=== PATIENT | male | born 1930 | race Caucasian/White ===

== ENCOUNTER 2018-03-26 10:01 | Inpatient (IN) | payer MEDICARE, OTHER ==
--- NOTE | 2018-03-26 11:15 | ER Document Report ---
ED GI Bleed / Rectal Pain <MICHAELA TRUONG - Last Filed: 03/26/18 13:04> - General Mode of Arrival: Ambulatory Information source: Patient TRAVEL OUTSIDE OF THE [place] IN LAST 30 DAYS: No <JENNIFER BURRELL - Last Filed: 03/26/18 15:55> - General Chief Complaint: GI Bleeding Stated Complaint: POSSIBLE RECTAL BLEEDING Time Seen by Provider: 03/26/18 11:03 Notes: 87-year-old male who presents to the emergency department today with complaints of having a bowel movement that was "completely blood." Patient states he had the urge of what he thought was going to be diarrhea but instead turned out to be just large amounts of blood. Patient has had transfusions in the past secondary to anemia of unknown source. Patient and family are both fairly poor historians so history is somewhat limited. (JENNIFER BURRELL) - Related Data Allergies/Adverse Reactions: Penicillins Adverse Reaction (Verified 03/26/18 12:16) Past Medical History - General Information source: Patient - Social History Smoking Status: Former Smoker Cigarette use (# per day): No Family History: Reviewed & Not Pertinent - Past Medical History Cardiac Medical History: Reports: Hx Hypercholesterolemia, Hx Hypertension, Other - hx of anemia from unknown source Pulmonary Medical History: Reports: Hx COPD <JENNIFER BURRELL - Last Filed: 03/26/18 15:55> Review of Systems - Review of Systems Constitutional: No symptoms reported EENT: No symptoms reported Cardiovascular: No symptoms reported Respiratory: No symptoms reported Gastrointestinal: See HPI, Black stools, Rectal bleeding Genitourinary: No symptoms reported Male Genitourinary: No symptoms reported Musculoskeletal: No symptoms reported Skin: No symptoms reported Hematologic/Lymphatic: No symptoms reported Neurological/Psychological: No symptoms reported -: Yes All other systems reviewed and negative <JENNIFER BURRELL - Last Filed: 03/26/18 15:55> Physical Exam <MICHAELA TRUONG - Last Filed: 03/26/18 13:04> <JENNIFER BURRELL - Last Filed: 03/26/18 15:55> - Vital signs Vitals: Temp Pulse Resp BP Pulse Ox 98.7 F 90 16 138/72 H 98 03/26/18 10:13 03/26/18 10:13 03/26/18 10:13 03/26/18 10:13 03/26/18 10:13 - Notes Notes: Physical Exam: General: Alert, appears well. HEENT: Normocephalic. Atraumatic. PERRL. Extraocular movements intact. Oropharynx clear. Neck: Supple. Non-tender. Respiratory: No respiratory distress. Coarse breath sounds bilaterally. Cardiovascular: Tachycardic, regular rhythm. Abdominal: Normal Inspection. Non-tender. No distension. Normal Bowel Sounds. Rectal: Black stool on diaper. Digital rectal exam performed, moderate amount of melanotic stool. Back: Non-tender. No deformity or step off. Extremities: Moves all four extremities. Upper extremities: Normal inspection. Normal ROM. Lower extremities: Normal inspection. No edema. Normal ROM. Neurological: Normal cognition. AAOx4. Normal speech. Psychological: Normal affect. Normal Mood. Skin: Warm. Dry. Normal color. (JENNIFER BURRELL) Course - Laboratory Result Diagrams: 03/26/18 09:50 03/26/18 09:50 - Diagnostic Test Radiology reviewed: Image reviewed - Chest x-ray shows COPD without infiltrate. - EKG Interpretation by Pa EKG shows normal: Sinus rhythm, [place], Intervals, QRS Complexes, ST-T Waves Rate: Normal - 75 Rhythm: NSR When compared to previous EKG there are: Previous EKG unavailable - Consults Teresita Castle RN Time consulted: 13:05 Consulted provider: will come to ER <MICHAELA TRUONG - Last Filed: 03/26/18 13:04> - Laboratory Result Diagrams: 03/26/18 09:50 03/26/18 09:50 <JENNIFER BURRELL - Last Filed: 03/26/18 15:55> - Vital Signs Vital signs: Temp Pulse Resp BP Pulse Ox 98.7 F 90 21 H 125/61 100 03/26/18 10:13 03/26/18 10:13 03/26/18 15:00 03/26/18 14:46 03/26/18 15:00 - Laboratory Laboratory results interpreted by me: 03/26/18 03/26/18 09:50 09:50 RBC 3.70 L Hgb 10.1 L Hct 30.4 L RDW 14.6 H Seg Neutrophils % 82.4 H Lymphocytes % 8.3 L Potassium 5.1 H Carbon Dioxide 34 H BUN 21 H Glucose 125 H Critical Care Note - Critical Care Note Total time excluding time spent on procedures (mins): 30 <MICHAELA TRUONG - Last Filed: 03/26/18 13:04> Discharge - Discharge Admitting Provider: Hospitalist Unit Admitted: IMCU <MICHAELA TRUONG - Last Filed: 03/26/18 13:04> <JENNIFER BURRELL - Last Filed: 03/26/18 15:55> - Discharge Clinical Impression: Lower GI bleed COPD (chronic obstructive pulmonary disease) Qualifiers: COPD type: unspecified COPD Qualified Code(s): J44.9 - Chronic obstructive pulmonary disease, unspecified Anemia Qualifiers: Anemia type: unspecified type Qualified Code(s): D64.9 - Anemia, unspecified Condition: Good Disposition: ADMITTED INPATIENT Scribe Attestation: 03/26/18 12:47 I personally performed the services described in the documentation, reviewed and edited the documentation which was dictated to the scribe in my presence, and it accurately records my words and actions. (MICHAELA TRUONG) Scribe Documentation - Scribe Written by Leydaibe:: Delmar Sauceda, 03/26/2018 1554 acting as scribe for :: Mumtaz <JENNIFER BURRELL - Last Filed: 03/26/18 15:55>
[2018-03-26 11:28] LABS: ABSOLUTE EOSINOPHILS # (AUTO) 0.1 10^3/uL (0.0-0.6); ABSOLUTE LYMPHOCYTES (AUTO) 0.6 10^3/uL (0.5-4.7); ABSOLUTE MONOCYTES (AUTO) 0.5 10^3/uL (0.1-1.4); ABSOLUTE NEUT (AUTO) 6.1 10^3/uL (1.7-8.2); BASOPHILS % (AUTO) 0.4 % (0-2); EOSINOPHILS % (AUTO) 1.8 % (0-6); HEMATOCRIT 30.4 % (37.9-51.0); HEMOGLOBIN 10.1 g/dL (13.5-17.0); LYMPHOCYTES % (AUTO) 8.3 % (13-45); MEAN CORPUSCULAR HEMOGLOBIN 27.3 pg (27.0-33.4); MEAN CORPUSCULAR HGB CONC 33.3 g/dL (32.0-36.0); MEAN CORPUSCULAR VOLUME 82 fl (80-97); MONOCYTES % (AUTO) 7.1 % (3-13); PLATELET COUNT 243 10^3/uL (150-450); RED CELL DISTRIBUTION WIDTH 14.6 % (11.5-14.0); SEGMENTED NEUTROPHILS % (AUTO) 82.4 % (42-78); TOTAL CELLS COUNTED % (AUTO) 100 %; WHITE BLOOD COUNT 7.4 10^3/uL (4.0-10.5)
[2018-03-26 11:46] LABS: ALANINE AMINOTRANSFERASE 26 U/L (21-72); ALBUMIN 3.6 g/dL (3.5-5.0); ALKALINE PHOSPHATASE 43 U/L (38-126); ANION GAP 8 (5-19); ASPARTATE AMINO TRANSFERASE 27 U/L (17-59); BILIRUBIN,DIRECT 0.4 mg/dL (0.0-0.4); BILIRUBIN,TOTAL 0.7 mg/dL (0.2-1.3); BLOOD UREA NITROGEN 21 mg/dL (7-20); CALCIUM 8.6 mg/dL (8.4-10.2); CARBON DIOXIDE 34 mmol/L (22-30); CHLORIDE 101 mmol/L (98-107); CREATINE KINASE 165 U/L (55-170); GLUCOSE 125 mg/dL (75-110); POTASSIUM 5.1 mmol/L (3.6-5.0); SODIUM 142.8 mmol/L (137-145); TOTAL PROTEIN 6.8 g/dL (6.3-8.2)
--- NOTE | 2018-03-26 12:05 | RADIOLOGY REPORT (SQ) ---
EXAM DESCRIPTION: CHEST SINGLE VIEW COMPLETED DATE/TIME: 03/26/2018 11:57 am REASON FOR STUDY: rectal bleed, COPD COMPARISON: 07/26/2009 EXAM PARAMETERS: NUMBER OF VIEWS: One view. TECHNIQUE: Single frontal radiographic view of the chest acquired. RADIATION DOSE: NA LIMITATIONS: None. FINDINGS: LUNGS AND PLEURA: No opacities, masses or pneumothorax. No pleural effusion. MEDIASTINUM AND HILAR STRUCTURES: No masses. Contour normal. HEART AND VASCULAR STRUCTURES: Heart normal in size. Normal vasculature. BONES: No acute findings. HARDWARE: None in the chest. OTHER: No other significant finding. IMPRESSION: NO ACUTE RADIOGRAPHIC FINDING IN THE CHEST. TECHNICAL DOCUMENTATION: JOB ID: [id number] [employer]- All Rights Reserved Reading location - IP/workstation name: [email or web address]
[2018-03-26] MEDS ORDERED: NORMAL SALINE 1000 ML 200 ML IV ONE (13:12)
[2018-03-26] MEDS ORDERED: ACETAMINOPHEN 325 MG TABLET PO PRN (13:55)
[2018-03-26] MEDS: NORMAL SALINE 1000 ML 1,000 ML IV PRN ×2 (15:16→16:38)
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
[2018-03-26] MEDS ORDERED: PANTOPRAZOLE SODIUM 40 MG VIAL IV ONE (15:30)
[2018-03-26 15:52] LABS: APPEARANCE,URINE SLIGHTLY-CLOUDY; BILIRUBIN,URINE NEGATIVE (NEGATIVE); COLOR,URINE YELLOW; GLUCOSE, URINE NEGATIVE (NEGATIVE); KETONES,URINE NEGATIVE (NEGATIVE); LEUKOCYTE ESTERASE,URINE SMALL (NEGATIVE); NITRITE,URINE NEGATIVE (NEGATIVE); PROTEIN,URINE NEGATIVE (NEGATIVE); UROBILINOGEN,URINE NEGATIVE mg/dL (<2.0)
[2018-03-26 17:00] LABS: HEMATOCRIT 28.8 % (37.9-51.0); HEMOGLOBIN 9.5 g/dL (13.5-17.0); MEAN CORPUSCULAR HEMOGLOBIN 27.4 pg (27.0-33.4); MEAN CORPUSCULAR HGB CONC 33.2 g/dL (32.0-36.0); MEAN CORPUSCULAR VOLUME 83 fl (80-97); PLATELET COUNT 243 10^3/uL (150-450); RED BLOOD COUNT 3.48 10^6/uL (4.35-5.55); RED CELL DISTRIBUTION WIDTH 15.1 % (11.5-14.0); WHITE BLOOD COUNT 8.3 10^3/uL (4.0-10.5)
[2018-03-26] MEDS ORDERED: PEG 3350/NA SULF,BICARB,CL/KCL 4000 ML PO ONE (17:00)
[2018-03-26] MEDS ORDERED: DEXTROSE 40% GEL 15 GM TUBE PO PRN ×2 (17:41)
[2018-03-26] MEDS ORDERED: GLUCAGON,HUMAN RECOMB 1 MG INJ SUBCUT PRN (17:41)
[2018-03-26] MEDS ORDERED: DEXTROSE 50%-WATER 25 GM/50 ML DISP.SYRIN IV PRN ×2 (17:41)
[2018-03-26] MEDS: IPRATROPIUM/ALBUTEROL 0.5-2.5 MG/3 ML AMPUL NEB PRN (18:02)
--- NOTE | 2018-03-26 21:51 | EKG REPORT ---
SEVERITY:- NORMAL ECG - SINUS RHYTHM : Confirmed by: Domi House MD 26-Mar-2018 21:51:02
[2018-03-26] MEDS ORDERED: IPRATROPIUM/ALBUTEROL 120 PUFF/4 GM MDI IH ONE (21:59)
[2018-03-26] MEDS ORDERED: BUDESONIDE/FORMOTEROL 160-4.5 MCG 60 PUFF/6 GM MDI IH ONE (21:59)
--- NOTE | 2018-03-26 22:29 | PDOC H&P ---
History of Present Illness Admission Date/PCP: 03/26/18 13:53 MONTSE TOM MD Patient complains of: BLOODY STOOL History of Present Illness: RENALDO DAWSON is a 87 year old male who presented to the ED following two episodes of BRB stool this morning. The patient reports he was doing housework this morning when he felt like he needed to immediately have a bowel movement. The states she saw blood running down the patient's leg. The patient reports he was able to make it to the bathroom, but passed a large bloody bowel movement. He denied chest pain, shortness of breath, dizziness or syncope. The patient states he took a bath and experienced a second bloody bowel movement. This prompted his to call EMS and the patient was transported to [facility]. PMH includes HTN, HLD, COPD on home O2, GERD, diverticulitis, BPH, hemorrhoids Upon arrival to the ED, the patient's vital signs were relatively stable BP 138/ 72 P 80 T 98.7 RR 18 SPO2 98% on 4LNC. EKG showed NSR, no evidence of ischemia or infarction. CXR benign. Hgb 10.1 Hct 30.4. No further episodes of melena/BRB stool in the ED. Upon evaluation, the patient is resting comfortably in bed on nasal cannula. The patient denies abdominal pain, N/V, chest pain or shortness of breath. He does endorse weakness, but denies dizziness, vision changes or any syncope/near-syncope episodes. His conjunctiva are pale. Skin color is normal for a male and warm, dry, intact. Lungs are clear to auscultation. S1S2. The patient has a number of external hemorrhoids, none are actively bleeding. Rectal exam revealed BRB as well as very dark fecal matter ( per ED MD). Stool sample is guiac positive (+). Patient evaluated by Surgery - plan for EGD and colonoscopy tomorrow morning. Admit to hospitalist service for GI bleed. Past Medical History Cardiac Medical History: Reports: Hyperlipidema, Hypertension, Other - hx of anemia from unknown source Pulmonary Medical History: Reports: Chronic Obstructive Pulmonary Disease (COPD) Endocrine Medical History: Reports: Diabetes Mellitus Type 2 - DIET CONTROLLED GI Medical History: Reports: Diverticulitis, Hiatal Hernia GI History Note: HEMORRHOIDS. ADENOMATOUS POLYP OF COLON. Hematology: Reports: Anemia Past Surgical History Past Surgical History: Reports: Herniorrhaphy, Other Social History Information Source: Patient Lives with: Family Smoking Status: Former Smoker - 51 PACK YEAR SMOKING HISTORY Number of Years Smokin Frequency of Alcohol Use: None Hx Recreational Drug Use: No Drugs: None Hx Prescription Drug Abuse: No - Advance Directive Resuscitation Status: Do Not Resuscitate Family History Family History: CAD, Malignancy Parental Family History Reviewed: Yes Children Family History Reviewed: No Sibling(s) Family History Reviewed.: No Medication/Allergy Home Medications: Albuterol Sulfate [Albuterol Sulfate 2.5mg/3 mL] 2.5 mg IH [id number] PRN 03/26/18 Aspirin [Aspirin 81 mg Chewable Tablet] 81 mg PO DAILY 03/26/18 Budesonide/Formoterol Fumarate [Symbicort 160-4.5 Mcg Inhaler] 2 puff IH Q12 Cetirizine HCl [Zyrtec] 10 mg PO DAILY 03/26/18 Finasteride [Proscar] 5 mg PO DAILY 03/26/18 Ipratropium [place] [Atrovent 0.06% Nasal [place]] 2 spray NASL TID 03/26/18 Ipratropium/Albuterol Sulfate [Combivent Respimat Inhal [place]] 1 puff IH QID Lovastatin [Mevacor] 20 mg PO WSUPPER 03/26/18 Omeprazole 20 mg PO QAM 03/26/18 Tamsulosin HCl [Flomax] 0.4 mg PO QHS 03/26/18 Umeclidinium [place] [Incruse Ellipta] 1 puff IH DAILY 03/26/18 Allergies/Adverse Reactions: Penicillins Adverse Reaction (Verified 03/26/18 12:16) Review of Systems All systems: reviewed and no additional remarkable complaints except as stated Physical Exam Vital Signs: Temp Pulse Resp BP Pulse Ox 98.2 F 86 20 154/67 H 100 03/26/18 19:28 03/26/18 19:28 03/26/18 19:28 03/26/18 19:28 03/26/18 19:28 Intake & Output 03/25/18 03/26/18 03/27/18 06:59 06:59 06:59 Intake Total 226 Balance 226 Weight 82.3 kg General appearance: PRESENT: no acute distress Head exam: PRESENT: atraumatic Eye exam: PRESENT: conjunctiva pale, PERRLA Mouth exam: PRESENT: moist Neck exam: PRESENT: full ROM Respiratory exam: PRESENT: clear to auscultation yue, symmetrical, unlabored Cardiovascular exam: PRESENT: +S1, +S2 Pulses: PRESENT: normal radial pulses, normal dorsalis pedis pul GI/Abdominal exam: PRESENT: normal bowel sounds, soft. ABSENT: distended, guarding, tenderness Rectal exam: PRESENT: black stool, hemorrhoids Extremities exam: PRESENT: full ROM. ABSENT: pedal edema Musculoskeletal exam: PRESENT: ambulatory, full ROM Neurological exam: PRESENT: alert, awake, oriented to person, oriented to place , oriented to time, oriented to situation Psychiatric exam: PRESENT: appropriate affect Skin exam: PRESENT: dry, intact, pallor, warm Results Laboratory Results: 03/26/18 16:52 03/26/18 03/26/18 15:25 16:52 WBC 8.3 RBC 3.48 L Hgb 9.5 L Hct 28.8 L MCV 83 MCH 27.4 MCHC 33.2 RDW 15.1 H Plt Count 243 Urine Color YELLOW Urine Appearance SLIGHTLY-CLOUDY Urine pH 5.0 Ur Specific [place] 1.020 Urine Protein NEGATIVE Urine Glucose (UA) NEGATIVE Urine Ketones NEGATIVE Urine Blood NEGATIVE Urine Nitrite NEGATIVE Ur Leukocyte Esterase SMALL H Urine WBC (Auto) 25 Urine RBC (Auto) 3 Impressions: Chest X-Ray 03/26/18 11:16 IMPRESSION: NO ACUTE RADIOGRAPHIC FINDING IN THE CHEST. Status: Imported from PACS Assessment & Plan - Diagnosis (1) Lower GI bleed Is this a current diagnosis for this admission?: Yes Plan: Patient endorses 2 episodes of bright red bloody stool this morning No BM since then Guaiac positive (+) Hgb 10.9 - plan to recheck this afternoon, if stable only check daily. If Hgb dropping, will monitor closely q12h. Plan for EGD and colonoscopy tomorrow morning with Surgery Continue maintenance IVF 80mg Protonix bolus followed by BID 40mg Protonix (2) HTN (hypertension) Qualifiers: Hypertension type: essential hypertension Qualified Code(s): I10 - Essential (primary) hypertension Is this a current diagnosis for this admission?: Yes Plan: The patient endorses a history of HTN Remains NORMOtensive while inpatient No home dose medication Hydralazine IV PRN for SBP > 170 (3) HLD (hyperlipidemia) Qualifiers: Hyperlipidemia type: unspecified Qualified Code(s): E78.5 - Hyperlipidemia , unspecified Is this a current diagnosis for this admission?: Yes Plan: History of HLD Continue home dose statin therapy (4) COPD (chronic obstructive pulmonary disease) Qualifiers: COPD type: unspecified COPD Qualified Code(s): J44.9 - Chronic obstructive pulmonary disease, unspecified Is this a current diagnosis for this admission?: Yes Plan: History of COPD on home O2 No evidence of exacerbation at the present time Continue home inhalers PRN Duonebs (5) Anemia Qualifiers: Anemia type: unspecified type Qualified Code(s): D64.9 - Anemia, unspecified Is this a current diagnosis for this admission?: Yes Plan: Secondary to GIB Follow up CBC later this afternoon, if Hgb dropping precipitously, will continue to check q12hr. If stable, will check QAM Current Hgb 10.9 no plan to transfuse (6) BPH (benign prostatic hyperplasia) Qualifiers: Lower urinary tract symptom presence: unspecified whether lower urinary tract symptoms present Qualified Code(s): N40.0 - Benign prostatic hyperplasia without lower urinary tract symptoms Is this a current diagnosis for this admission?: Yes Plan: History of BPH Continue home dose Flomax - Time Time Spent: 50 to 70 Minutes Medications reviewed and adjusted accordingly: Yes Anticipated discharge: Home - Inpatient Certification Based on my medical assessment, after consideration of the patient's comorbidities, presenting symptoms, or acuity I expect that the services needed warrant INPATIENT care.: Yes I certify that my determination is in accordance with my understanding of Medicare's requirements for reasonable and necessary INPATIENT services [42 CFR 412.3e].: Yes Medical Necessity: Risk of Complication if Not Cared For in Hospital - Plan Summary Plan Summary: EGD AND COLONOSCOPY IN AM. CONTINUE TO MONITOR CBC.
[2018-03-26] MEDS: BUDESONIDE/FORMOTEROL 160-4.5 MCG 60 PUFF/6 GM MDI IH SCH (22:46)
[2018-03-26] MEDS: ATORVASTATIN CALCIUM 20 MG TABLET PO SCH (22:47)
[2018-03-26] MEDS: TAMSULOSIN HCL 0.4 MG CAP.SR.24H PO SCH (22:47)
[2018-03-26] MEDS: IPRATROPIUM/ALBUTEROL 120 PUFF/4 GM MDI IH SCH (22:47)
[2018-03-27] MEDS: NORMAL SALINE 1000 ML 1,000 ML IV PRN (04:59)
[2018-03-27 06:02] LABS: HEMATOCRIT 25.6 % (37.9-51.0); HEMOGLOBIN 8.6 g/dL (13.5-17.0); MEAN CORPUSCULAR HEMOGLOBIN 27.6 pg (27.0-33.4); MEAN CORPUSCULAR HGB CONC 33.4 g/dL (32.0-36.0); MEAN CORPUSCULAR VOLUME 83 fl (80-97); PLATELET COUNT 185 10^3/uL (150-450); RED CELL DISTRIBUTION WIDTH 14.8 % (11.5-14.0); WHITE BLOOD COUNT 6.6 10^3/uL (4.0-10.5)
[2018-03-27 06:11] LABS: INTERNATIONAL RATION (INR) 1.07; PROTHROMBIN TIME 14.4 SEC (11.4-15.4)
[2018-03-27 06:31] LABS: ALANINE AMINOTRANSFERASE 28 U/L (21-72); ALBUMIN 3.2 g/dL (3.5-5.0); ALKALINE PHOSPHATASE 38 U/L (38-126); ANION GAP 6 (5-19); ASPARTATE AMINO TRANSFERASE 29 U/L (17-59); BILIRUBIN,DIRECT 0.3 mg/dL (0.0-0.4); BILIRUBIN,TOTAL 0.8 mg/dL (0.2-1.3); BLOOD UREA NITROGEN 16 mg/dL (7-20); CALCIUM 7.9 mg/dL (8.4-10.2); CARBON DIOXIDE 34 mmol/L (22-30); CHLORIDE 104 mmol/L (98-107); GLUCOSE 85 mg/dL (75-110); POTASSIUM 4.4 mmol/L (3.6-5.0); SODIUM 143.8 mmol/L (137-145); TOTAL PROTEIN 5.9 g/dL (6.3-8.2)
[2018-03-27] MEDS ORDERED: PROPOFOL INJ 200 MG/20 ML VIAL IV ONE (07:30)
[2018-03-27] MEDS ORDERED: DIPHENHYDRAMINE HCL 50 MG/ML VIAL IV PRN (08:39)
[2018-03-27] MEDS ORDERED: PROMETHAZINE HCL INJ 25 MG/1 ML VIAL IV PRN (08:39)
[2018-03-27] MEDS ORDERED: ONDANSETRON HCL INJ/PF 4 MG/2 ML SDV IV PRN (08:39)
--- NOTE | 2018-03-27 08:59 | Operative Report ---
Operative Report DATE OF SURGERY: 03/27/18 PREOPERATIVE DIAGNOSIS: 1. Gastrointestinal hemorrhage. 2. Advanced age POSTOPERATIVE DIAGNOSIS: Same with. 1 hiatal hernia. 2. Small duodenal polyp. 3. External/internal hemorrhoids. 4. Extensive sigmoid and left colon diverticulosis. 4. Multiple hyperplastic polyps of the rectum. 5. No abnormal lower endoscopic evidence of gastrointestinal hemorrhage OPERATION: 1. Esophagogastroduodenoscopy with photodocumentation. 2. Total colonoscopy to cecum with photodocumentation. SURGEON: KENIA MORA ANESTHESIA: LMAC TISSUE REMOVED OR ALTERED: None COMPLICATIONS: None ESTIMATED BLOOD LOSS: None INTRAOPERATIVE FINDINGS: See below PROCEDURE: Patient was taken to the preop holding area the main operating room where LMAC anesthesia was induced. Placed the left lateral decubitus position, appropriate monitoring devices were attached, an appropriate level of LMAC anesthesia induced. Surgical plan surgical conducted. The flexible adult upper endoscope was advanced through the oropharynx down the hypopharynx into the esophagus through the stomach into the duodenum first and second portions. The patient tolerated procedure well. The scope was withdrawn through the proximal duodenum where bile was identified and a small polyp but no evidence of bleeding tumor or stricture. The pylorus was normal. The stomach was grossly normal without any evidence of gastritis peptic ulcer disease tumor or retained gastric contents. There was a small hiatal hernia. Retroflexion of the scope confirmed no evidence of bleeding in the cardia. Scope was withdrawn through the esophagus. Again no evidence of tumor stricture bleeding, clots or varices. There is felt to be no evidence of acute gastrointestinal hemorrhage from the upper gastrointestinal system. Scope was withdrawn the patient's oropharynx. We now set up for colonoscopy. Patient was repositioned slightly. A rectal exam was performed. There were external and internal hemorrhoids but no evidence of acute bleeding or clot. Sphincter tone was relaxed. The flexible adult colonoscope was advanced through the anorectal canal all the way to the cecum. The bowel prep was fair. There is a mild to moderate amount of semisolid stool and liquid stool which aspirated reasonably well and at least moved out of the way so we could see the lumen. Transillumination anterior abdominal wall cecum confirmed cecal intubation. The scope withdrawn the length of the colon check the mucosa carefully. There are extensive diverticulosis of the sigmoid and left colon, and extensive small hyperplastic polyps of the rectum. Otherwise there was no evidence of tumor stricture bleeding or clot, so there was no evidence of lower intestinal bleeding at the time of this procedure. The scope was with drawn through his anus. He tolerated procedure well. He will be taken to recovery room in stable condition. Recommendations: Resume preoperative medications diet activity.
[2018-03-27] MEDS ORDERED: PANTOPRAZOLE SODIUM 40 MG VIAL IV SCH (10:00)
[2018-03-27] MEDS: CETIRIZINE 10 MG TABLET PO SCH (10:44)
[2018-03-27] MEDS: PANTOPRAZOLE SODIUM 40 MG VIAL IV SCH ×2 (10:44→18:13)
[2018-03-27] MEDS: IPRATROPIUM/ALBUTEROL 120 PUFF/4 GM MDI IH SCH ×4 (10:45→21:17)
[2018-03-27] MEDS: BUDESONIDE/FORMOTEROL 160-4.5 MCG 60 PUFF/6 GM MDI IH SCH ×2 (10:45→21:18)
--- NOTE | 2018-03-27 15:42 | PDOC PROGRESS REPORT ---
Subjective Progress Note for:: 03/27/18 Subjective:: RENALDO DAWSON is a 87 year old male who presented to the ED following two episodes of BRB stool. PMH includes HTN, HLD, COPD on home O2, GERD, diverticulitis, BPH, hemorrhoids. Patient was seen this morning on rounds following his EGD and colonoscopy. He is resting comfortably in bed on supplemental oxygen via nasal cannula. Patient denies any complaints -no nausea or vomiting, weakness, dizziness, chest pain or shortness of breath. EGD and colonoscopy negative for active bleeding. Reason For Visit: GI BLEED Physical Exam Vital Signs: Temp Pulse Resp BP Pulse Ox 98.1 F 94 20 142/49 H 100 03/27/18 12:15 03/27/18 14:00 03/27/18 12:15 03/27/18 12:15 03/27/18 12:15 Intake & Output 03/26/18 03/27/18 03/28/18 06:59 06:59 06:59 Intake Total 1277 350 Balance 1277 350 Weight 88.2 kg General appearance: PRESENT: no acute distress, well-developed, well-nourished Eye exam: PRESENT: conjunctiva pale, PERRLA Mouth exam: PRESENT: moist Neck exam: PRESENT: full ROM Respiratory exam: PRESENT: clear to auscultation yue, symmetrical, unlabored Cardiovascular exam: PRESENT: +S1, +S2 Pulses: PRESENT: normal radial pulses, normal dorsalis pedis pul GI/Abdominal exam: PRESENT: normal bowel sounds, soft. ABSENT: distended, guarding, tenderness Rectal exam: PRESENT: hemorrhoids. ABSENT: black stool, bloody stool Extremities exam: PRESENT: full ROM. ABSENT: joint swelling, pedal edema Musculoskeletal exam: PRESENT: ambulatory, full ROM Neurological exam: PRESENT: alert, awake, oriented to person, oriented to place , oriented to time, oriented to situation Psychiatric exam: PRESENT: appropriate affect Skin exam: PRESENT: dry, intact, normal color, warm Results Laboratory Results: 03/27/18 05:15 03/27/18 05:15 03/26/18 03/26/18 03/27/18 15:25 16:52 05:15 WBC 8.3 6.6 RBC 3.48 L 3.10 L Hgb 9.5 L 8.6 L Hct 28.8 L 25.6 L MCV 83 83 MCH 27.4 27.6 MCHC 33.2 33.4 RDW 15.1 H 14.8 H Plt Count 243 185 Sodium Potassium Chloride Carbon Dioxide Anion Gap BUN Creatinine Est GFR ( Amer) Est GFR (Non-Af Amer) Glucose Calcium Total Bilirubin AST ALT Alkaline Phosphatase Total Protein Albumin Urine Color YELLOW Urine Appearance SLIGHTLY-CLOUDY Urine pH 5.0 Ur Specific [place] 1.020 Urine Protein NEGATIVE Urine Glucose (UA) NEGATIVE Urine Ketones NEGATIVE Urine Blood NEGATIVE Urine Nitrite NEGATIVE Ur Leukocyte Esterase SMALL H Urine WBC (Auto) 25 Urine RBC (Auto) 3 03/27/18 05:15 WBC RBC Hgb Hct MCV MCH MCHC RDW Plt Count Sodium 143.8 Potassium 4.4 Chloride 104 Carbon Dioxide 34 H Anion Gap 6 BUN 16 Creatinine 0.87 Est GFR ( Amer) > 60 Est GFR (Non-Af Amer) > 60 Glucose 85 Calcium 7.9 L Total Bilirubin 0.8 AST 29 ALT 28 Alkaline Phosphatase 38 Total Protein 5.9 L Albumin 3.2 L Urine Color Urine Appearance Urine pH Ur Specific [place] Urine Protein Urine Glucose (UA) Urine Ketones Urine Blood Urine Nitrite Ur Leukocyte Esterase Urine WBC (Auto) Urine RBC (Auto) Impressions: Chest X-Ray 03/26/18 11:16 IMPRESSION: NO ACUTE RADIOGRAPHIC FINDING IN THE CHEST. Status: Imported from PACS Assessment & Plan - Diagnosis (1) Lower GI bleed Is this a current diagnosis for this admission?: Yes Plan: Resolved. Patient presented to [facility] for BRB stool 2 No BM since then Guaiac positive (+) EGD and colonoscopy this morning - no evidence of active bleeding. One polyp seen on EGD. Results of colonoscopy revealed extensive diverticulosis of the sigmoid colon and left colon, and extensive small hyperplastic polyps in the rectum. Continue maintenance IVF Continue BID 40mg Protonix (2) HTN (hypertension) Qualifiers: Hypertension type: essential hypertension Qualified Code(s): I10 - Essential (primary) hypertension Is this a current diagnosis for this admission?: Yes Plan: The patient endorses a history of HTN Remains NORMOtensive while inpatient No home dose medication Hydralazine IV PRN for SBP > 170 (3) HLD (hyperlipidemia) Qualifiers: Hyperlipidemia type: unspecified Qualified Code(s): E78.5 - Hyperlipidemia , unspecified Is this a current diagnosis for this admission?: Yes Plan: History of HLD Continue home dose statin therapy (4) COPD (chronic obstructive pulmonary disease) Qualifiers: COPD type: unspecified COPD Qualified Code(s): J44.9 - Chronic obstructive pulmonary disease, unspecified Is this a current diagnosis for this admission?: Yes Plan: History of COPD on home O2 No evidence of exacerbation at the present time Supplemental oxygen for SPO2>88% Continue home inhalers PRN Duonebs (5) Anemia Qualifiers: Anemia type: unspecified type Qualified Code(s): D64.9 - Anemia, unspecified Is this a current diagnosis for this admission?: Yes Plan: Secondary to GIB Current Hgb 8.9 (down from 10.1 yesterday) Monitor overnight, recheck Hgb in AM, if stable will d/c home No plan to transfuse at this time (6) BPH (benign prostatic hyperplasia) Qualifiers: Lower urinary tract symptom presence: unspecified whether lower urinary tract symptoms present Qualified Code(s): N40.0 - Benign prostatic hyperplasia without lower urinary tract symptoms Is this a current diagnosis for this admission?: Yes Plan: History of BPH Continue home dose Flomax - Time Time Spent with patient: 15-24 minutes Medications reviewed and adjusted accordingly: Yes Anticipated discharge: Home Within: within 24 hours - Inpatient Certification Based on my medical assessment, after consideration of the patient's comorbidities, presenting symptoms, or acuity I expect that the services needed warrant INPATIENT care.: Yes I certify that my determination is in accordance with my understanding of Medicare's requirements for reasonable and necessary INPATIENT services [42 CFR 412.3e].: Yes Medical Necessity: Risk of Complication if Not Cared For in Hospital - Plan Summary Plan Summary: Monitor overnight for s/s anemia. Check CBC in AM. If Hgb stable, will d/c home tomorrow.
[2018-03-27] MEDS: IPRATROPIUM/ALBUTEROL 0.5-2.5 MG/3 ML AMPUL NEB PRN (17:52)
[2018-03-27] MEDS: TAMSULOSIN HCL 0.4 MG CAP.SR.24H PO SCH (21:17)
[2018-03-27] MEDS: ATORVASTATIN CALCIUM 20 MG TABLET PO SCH (21:17)
[2018-03-28 05:56] LABS: HEMATOCRIT 24.4 % (37.9-51.0); HEMOGLOBIN 8.1 g/dL (13.5-17.0); MEAN CORPUSCULAR HEMOGLOBIN 27.3 pg (27.0-33.4); MEAN CORPUSCULAR HGB CONC 33.2 g/dL (32.0-36.0); MEAN CORPUSCULAR VOLUME 82 fl (80-97); PLATELET COUNT 200 10^3/uL (150-450); RED BLOOD COUNT 2.97 10^6/uL (4.35-5.55); WHITE BLOOD COUNT 6.4 10^3/uL (4.0-10.5)
[2018-03-28] MEDS: BUDESONIDE/FORMOTEROL 160-4.5 MCG 60 PUFF/6 GM MDI IH SCH ×2 (09:17→22:45)
[2018-03-28] MEDS: IPRATROPIUM/ALBUTEROL 120 PUFF/4 GM MDI IH SCH ×4 (09:17→22:46)
[2018-03-28] MEDS: PANTOPRAZOLE SODIUM 40 MG VIAL IV SCH ×2 (09:18→17:34)
[2018-03-28] MEDS: CETIRIZINE 10 MG TABLET PO SCH (09:18)
[2018-03-28] MEDS: IPRATROPIUM/ALBUTEROL 0.5-2.5 MG/3 ML AMPUL NEB PRN (09:39)
[2018-03-28 11:56] LABS: APPEARANCE,URINE CLEAR; BILIRUBIN,URINE NEGATIVE (NEGATIVE); COLOR,URINE YELLOW; GLUCOSE, URINE NEGATIVE (NEGATIVE); KETONES,URINE TRACE mg/dL (NEGATIVE); LEUKOCYTE ESTERASE,URINE NEGATIVE (NEGATIVE); NITRITE,URINE NEGATIVE (NEGATIVE); PROTEIN,URINE NEGATIVE (NEGATIVE); URINE SPECIFIC GRAVITY 1.011; UROBILINOGEN,URINE NEGATIVE mg/dL (<2.0)
--- NOTE | 2018-03-28 15:17 | PDOC PROGRESS REPORT ---
<DC GREEN - Last Filed: 03/28/18 15:10> Subjective Progress Note for:: 03/28/18 Subjective:: RENALDO DAWSON is a 87 year old male who presented to the ED following two episodes of BRB stool. PMH includes HTN, HLD, COPD on home O2, GERD, diverticulitis, BPH, hemorrhoids. Patient was seen this morning on rounds, his is at the bedside. He is resting comfortably in bed on supplemental oxygen via nasal cannula. Patient denies any complaints - no nausea or vomiting, weakness, dizziness, chest pain or shortness of breath. Nursing staff reports that patient has had minimal urine output today. Bladder scan reveals 700mL retention. Suh catheter placed. Patient reports that this has happened multiple times in the past when he is admitted to any hospital , despite continuing to take his Flomax. Hgb continued to drop this morning, 8.6->8.1. After consulting with hospitalist attending, plan to keep patient for 24 more hours and recheck CBC in AM. The concern is if the patient were to return home and begin bleeding again, his Hgb (that is already low) could drop to dangerously low levels. Family and patient were updated about treatment plan and are in agreement with medical staff. Reason For Visit: GI BLEED Physical Exam Vital Signs: Temp Pulse Resp BP Pulse Ox 98.1 F 87 16 129/52 H 100 03/28/18 11:14 03/28/18 11:14 03/28/18 11:14 03/28/18 11:14 03/28/18 11:14 Intake & Output 03/27/18 03/28/18 03/29/18 06:59 06:59 06:59 Intake Total 1277 1973 Output Total 350 Balance 1277 1623 Weight 88.2 kg 89.5 kg General appearance: PRESENT: no acute distress, well-developed, well-nourished Head exam: PRESENT: atraumatic Eye exam: PRESENT: conjunctiva pink, PERRLA Mouth exam: PRESENT: moist Neck exam: PRESENT: full ROM Respiratory exam: PRESENT: clear to auscultation yue, symmetrical, unlabored, other - On supplemental oxygen Cardiovascular exam: PRESENT: +S1, +S2 Pulses: PRESENT: normal radial pulses, normal dorsalis pedis pul GI/Abdominal exam: PRESENT: normal bowel sounds, soft. ABSENT: tenderness Rectal exam: PRESENT: deferred Extremities exam: PRESENT: full ROM Musculoskeletal exam: PRESENT: ambulatory, full ROM Neurological exam: PRESENT: alert, awake, oriented to person, oriented to place , oriented to time, oriented to situation Psychiatric exam: PRESENT: appropriate affect Skin exam: PRESENT: dry, intact, normal color, warm Results Laboratory Results: 03/28/18 05:29 03/27/18 05:15 03/28/18 03/28/18 05:29 10:40 WBC 6.4 RBC 2.97 L Hgb 8.1 L Hct 24.4 L MCV 82 MCH 27.3 MCHC 33.2 RDW 15.0 H Plt Count 200 Urine Color YELLOW Urine Appearance CLEAR Urine pH 6.0 Ur Specific [place] 1.011 Urine Protein NEGATIVE Urine Glucose (UA) NEGATIVE Urine Ketones TRACE H Urine Blood NEGATIVE Urine Nitrite NEGATIVE Ur Leukocyte Esterase NEGATIVE Urine WBC (Auto) 0 Urine RBC (Auto) 1 Impressions: Chest X-Ray 03/26/18 11:16 IMPRESSION: NO ACUTE RADIOGRAPHIC FINDING IN THE CHEST. Status: Imported from PACS Assessment & Plan - Diagnosis (1) Lower GI bleed Is this a current diagnosis for this admission?: Yes Plan: Resolved. Patient presented to [facility] for BRB stool 2 No BM since then Guaiac positive (+) EGD and colonoscopy show no evidence of active bleeding. One polyp seen on EGD. Results of colonoscopy revealed extensive diverticulosis of the sigmoid colon and left colon, and extensive small hyperplastic polyps in the rectum. Continue BID 40mg Protonix Hgb continues to drop, now down to 8.1 (from 10.6 upon admission). Plan to check CBC in AM, if < 8.0 will transfuse. Otherwise plan to discharge home tomorrow. (2) HTN (hypertension) QualifierTitle: Hypertension type: essential hypertension Qualified Code( s): I10 - Essential (primary) hypertension Is this a current diagnosis for this admission?: Yes Plan: The patient endorses a history of HTN Remains NORMOtensive while inpatient No home dose medication Hydralazine IV PRN for SBP > 170 (3) HLD (hyperlipidemia) QualifierTitle: Hyperlipidemia type: unspecified Qualified Code(s): E78.5 - Hyperlipidemia, unspecified Is this a current diagnosis for this admission?: Yes Plan: History of HLD Continue home dose statin therapy (4) COPD (chronic obstructive pulmonary disease) QualifierTitle: COPD type: unspecified COPD Qualified Code(s): J44.9 - Chronic obstructive pulmonary disease, unspecified Is this a current diagnosis for this admission?: Yes Plan: History of COPD on home O2 No evidence of exacerbation at the present time Supplemental oxygen for SPO2>88% Continue home inhalers PRN Duonebs (5) Anemia QualifierTitle: Anemia type: unspecified type Qualified Code(s): D64.9 - Anemia, unspecified Is this a current diagnosis for this admission?: Yes Plan: Secondary to GIB Current Hgb 8.1 (down from 10.1) Hgb continues to drop, albeit slightly, and there is concern if patient is discharged home and he begins to bleed again his Hgb can drop to dangerously low Monitor overnight, recheck Hgb in AM, if stable tomorrow will d/c home No plan to transfuse at this time. If Hgb drops below 8.0 will transfuse (6) BPH (benign prostatic hyperplasia) QualifierTitle: Lower urinary tract symptom presence: unspecified whether lower urinary tract symptoms present Qualified Code(s): N40.0 - Benign prostatic hyperplasia without lower urinary tract symptoms Is this a current diagnosis for this admission?: Yes Plan: History of BPH Continue home dose Flomax - Time Time Spent with patient: 15-24 minutes Medications reviewed and adjusted accordingly: Yes Anticipated discharge: Home - Inpatient Certification Based on my medical assessment, after consideration of the patient's comorbidities, presenting symptoms, or acuity I expect that the services needed warrant INPATIENT care.: Yes I certify that my determination is in accordance with my understanding of Medicare's requirements for reasonable and necessary INPATIENT services [42 CFR 412.3e].: Yes Medical Necessity: Risk of Complication if Not Cared For in Hospital - Plan Summary Plan Summary: KEEP INPATIENT UNTIL TOMORROW. RE-EVALUATE CBC IN AM. TRANSFUSE IF NEEDED, OTHERWISE IF HGB IS STABLE WILL D/C HOME. SU[facility] WILL REMAIN IN PLACE UNTIL PATIENT CAN FOLLOW UP WITH UROLOGY. <SCAR CARDONA - Last Filed: 03/28/18 17:57> Subjective Reason For Visit: GI BLEED Physical Exam Vital Signs: Temp Pulse Resp BP Pulse Ox 98.2 F 80 14 132/55 H 100 03/28/18 16:00 03/28/18 16:00 07/16/18 16:00 03/28/18 16:00 03/28/18 16:00 Intake & Output 03/27/18 03/28/18 03/29/18 06:59 06:59 06:59 Intake Total 1277 1973 Output Total 350 Balance 1277 1623 Weight 88.2 kg 89.5 kg Results Laboratory Results: 03/28/18 05:29 03/27/18 05:15 03/28/18 03/28/18 05:29 10:40 WBC 6.4 RBC 2.97 L Hgb 8.1 L Hct 24.4 L MCV 82 MCH 27.3 MCHC 33.2 RDW 15.0 H Plt Count 200 Urine Color YELLOW Urine Appearance CLEAR Urine pH 6.0 Ur Specific [place] 1.011 Urine Protein NEGATIVE Urine Glucose (UA) NEGATIVE Urine Ketones TRACE H Urine Blood NEGATIVE Urine Nitrite NEGATIVE Ur Leukocyte Esterase NEGATIVE Urine WBC (Auto) 0 Urine RBC (Auto) 1 Impressions: Chest X-Ray 03/26/18 11:16 IMPRESSION: NO ACUTE RADIOGRAPHIC FINDING IN THE CHEST. Provider Note Provider Note: I have discussed the patient with TRACIE Green in detail. I am in agreement with her evaluation and plan.
[2018-03-28] MEDS: ATORVASTATIN CALCIUM 20 MG TABLET PO SCH (22:45)
[2018-03-28] MEDS: TAMSULOSIN HCL 0.4 MG CAP.SR.24H PO SCH (22:45)
[2018-03-29] MEDS: IPRATROPIUM/ALBUTEROL 0.5-2.5 MG/3 ML AMPUL NEB PRN (02:08)
[2018-03-29 05:04] LABS: HEMATOCRIT 22.9 % (37.9-51.0); MEAN CORPUSCULAR HEMOGLOBIN 27.6 pg (27.0-33.4); MEAN CORPUSCULAR VOLUME 81 fl (80-97); PLATELET COUNT 198 10^3/uL (150-450); RED BLOOD COUNT 2.82 10^6/uL (4.35-5.55); RED CELL DISTRIBUTION WIDTH 14.8 % (11.5-14.0); WHITE BLOOD COUNT 6.6 10^3/uL (4.0-10.5)
[2018-03-29 05:30] LABS: HEMOGLOBIN 7.8 g/dL (13.5-17.0)
[2018-03-29] MEDS ORDERED: FUROSEMIDE INJ/PF 20 MG/2 ML SDV IV PRN (09:05)
[2018-03-29] MEDS ORDERED: NORMAL SALINE 250 ML IV PRN ×2 (09:05)
[2018-03-29] MEDS ORDERED: ACETAMINOPHEN 325 MG TABLET PO PRN (09:05)
[2018-03-29] MEDS: BUDESONIDE/FORMOTEROL 160-4.5 MCG 60 PUFF/6 GM MDI IH SCH ×2 (10:56→21:20)
[2018-03-29] MEDS: CETIRIZINE 10 MG TABLET PO SCH (10:56)
[2018-03-29] MEDS: PANTOPRAZOLE SODIUM 40 MG VIAL IV SCH (10:56)
[2018-03-29] MEDS: IPRATROPIUM/ALBUTEROL 120 PUFF/4 GM MDI IH SCH ×4 (10:57→21:20)
[2018-03-29 16:51] LABS: ABSOLUTE EOSINOPHILS # (AUTO) 0.2 10^3/uL (0.0-0.6); ABSOLUTE LYMPHOCYTES (AUTO) 0.8 10^3/uL (0.5-4.7); ABSOLUTE MONOCYTES (AUTO) 0.9 10^3/uL (0.1-1.4); ABSOLUTE NEUT (AUTO) 4.9 10^3/uL (1.7-8.2); BASOPHILS % (AUTO) 0.2 % (0-2); EOSINOPHILS % (AUTO) 3.4 % (0-6); HEMATOCRIT 25.8 % (37.9-51.0); HEMOGLOBIN 8.7 g/dL (13.5-17.0); LYMPHOCYTES % (AUTO) 11.1 % (13-45); MEAN CORPUSCULAR HEMOGLOBIN 27.7 pg (27.0-33.4); MEAN CORPUSCULAR HGB CONC 33.9 g/dL (32.0-36.0); MEAN CORPUSCULAR VOLUME 82 fl (80-97); PLATELET COUNT 206 10^3/uL (150-450); RED BLOOD COUNT 3.16 10^6/uL (4.35-5.55); RED CELL DISTRIBUTION WIDTH 14.5 % (11.5-14.0); SEGMENTED NEUTROPHILS % (AUTO) 72.3 % (42-78); TOTAL CELLS COUNTED % (AUTO) 100 %; WHITE BLOOD COUNT 6.8 10^3/uL (4.0-10.5)
[2018-03-29] MEDS: TAMSULOSIN HCL 0.4 MG CAP.SR.24H PO SCH (21:21)
[2018-03-29] MEDS: ATORVASTATIN CALCIUM 20 MG TABLET PO SCH (21:21)
[2018-03-30] MEDS ORDERED: LANSOPRAZOLE 30 MG TAB.RAP.DR PO SCH (06:00)
[2018-03-30] MEDS: IPRATROPIUM/ALBUTEROL 0.5-2.5 MG/3 ML AMPUL NEB PRN (09:14)
[2018-03-30] MEDS: CETIRIZINE 10 MG TABLET PO SCH (10:11)
[2018-03-30] MEDS: IPRATROPIUM/ALBUTEROL 120 PUFF/4 GM MDI IH SCH (10:12)
[2018-03-30] MEDS: BUDESONIDE/FORMOTEROL 160-4.5 MCG 60 PUFF/6 GM MDI IH SCH (10:12)
--- NOTE | 2018-03-30 10:25 | PDOC DISCHARGE SUMMARY ---
General - Admit/Disc Date/PCP Admission Date/Primary Care Provider: 03/26/18 13:53 Dr. Richie Ambrocio Urologist: Dr. Breaux Sql Engineer: Dr. Troncoso Discharge Date: 03/30/18 - Discharge Diagnosis (1) Lower GI bleed Is this a current diagnosis for this admission?: Yes Summary: Likely secondary to diverticulosis. The patient was transfused during this hospitalization. Currently his hemoglobin is stable at 8.7. He has an appointment to follow-up with Dr. Richie Ambrocio on Wednesday. I would recommend rechecking a blood count at that time. (2) Acute blood loss anemia Is this a current diagnosis for this admission?: Yes Summary: Requiring transfusion. He presented with bright red blood per rectum. He was transfused 1 unit of packed red blood cells with the appropriate response to his hemoglobin. (3) COPD (chronic obstructive pulmonary disease) Is this a current diagnosis for this admission?: Yes Summary: No evidence of exacerbation. Continue home regimen of bronchodilators and keep his regularly scheduled appointment with Dr. Ribeiro (4) Chronic respiratory failure Is this a current diagnosis for this admission?: Yes Summary: He is at his baseline oxygen requirements. He did not have any acute issues during this hospitalization. (5) Urinary retention Is this a current diagnosis for this admission?: Yes Summary: Continue Flomax. He will follow-up with Dr. Breaux as an outpatient. He will be sent home with his Thompson catheter (6) BPH (benign prostatic hyperplasia) Is this a current diagnosis for this admission?: Yes Summary: He will continue his home dose of Flomax. Hopefully this will continue to work and he can be weaned off of his Thompson catheter. I am reluctant to increase this due to the patient's systolic blood pressures being on the low side. (7) HTN (hypertension) Is this a current diagnosis for this admission?: Yes Summary: Blood pressure is well controlled on no medication. Systolic blood pressure is less than 120. (8) HLD (hyperlipidemia) Is this a current diagnosis for this admission?: Yes Summary: Continue statin medication (9) Hyperkalemia Is this a current diagnosis for this admission?: Yes Summary: Resolved (10) Do not resuscitate Is this a current diagnosis for this admission?: Yes - Additional Information Resuscitation Status: Full Code Discharge Diet: Cardiac Discharge Activity: Activity As Tolerated, Balance Activity w/Rest, Slowly Increase Activity Home Medications: Albuterol Sulfate [Albuterol Sulfate 2.5mg/3 mL] 2.5 mg IH [id number] PRN 03/26/18 Budesonide/Formoterol Fumarate [Symbicort 160-4.5 Mcg Inhaler] 2 puff IH Q12 Cetirizine HCl [Zyrtec] 10 mg PO DAILY 03/26/18 Finasteride [Proscar] 5 mg PO DAILY 03/26/18 Ipratropium [place] [Atrovent 0.06% Nasal [place]] 2 spray NASL TID 03/26/18 Ipratropium/Albuterol Sulfate [Combivent Respimat 20-100 Mcg] 1 puff IH QID Lovastatin [Mevacor] 20 mg PO WSUPPER 03/26/18 Omeprazole 20 mg PO QAM 03/26/18 Tamsulosin HCl [Flomax] 0.4 mg PO QHS 03/26/18 Umeclidinium [place] [Incruse Ellipta] 1 puff IH DAILY 03/26/18 Acetaminophen [Tylenol 325 mg Tablet] 650 mg PO Q4HP PRN tablet 03/30/18 History of Present Illness History of Present Illness: RENALDO DAWSNO is a 87 year old male who presented to the emergency room bright red blood per rectum. Hospital Course Hospital Course: The patient presented to the emergency room after having bright red blood noted in his stool. The patient's saw bright red blood running down the patient' s leg as well. In the emergency room his vital signs were stable. His stool in the emergency room was guaiac positive. He was noted to have external hemorrhoids. He was kept in the hospital and monitored closely. He his hemoglobin did drift downwards requiring transfusion. He was seen by the general surgery service who performed a colonoscopy on the patient. An upper and lower endoscopy and colonoscopy. He was found to have a small hiatal hernia and a duodenal polyp. On his colonoscopy he was found to have external and internal hemorrhoids as well as extensive diverticular disease. No evidence of hemorrhage was noted on either scope and at this point it is felt that the patient presumably had a diverticular bleed. He has had no further episodes of bleeding. He is feeling well and is back to his baseline. His hospitalization was complicated by the development of acute urinary retention. The patient states that for some reason every time he comes into the hospital in spite of taking his Flomax he developed urinary retention. He had a Thompson catheter placed. I have not escalated increased his Flomax due to his borderline low blood pressure. He follows with Dr. Breaux and we have made an appointment with him in follow-up. At this point maximum hospital benefit has been reached. The patient will be discharged home today in stable condition. Physical Exam Vital Signs: Temp Pulse Resp BP Pulse Ox 98.3 F 92 18 119/56 L 98 03/30/18 07:17 03/30/18 09:14 03/30/18 09:14 03/30/18 07:17 03/30/18 09:14 Intake & Output 03/29/18 03/30/18 03/31/18 06:59 06:59 06:59 Intake Total 1665 2085 Output Total 2425 4025 Balance -760 -1940 Weight 88.4 kg 84.1 kg General appearance: PRESENT: no acute distress, well-developed, well-nourished, other - He is receiving oxygen via nasal cannula Head exam: PRESENT: atraumatic, normocephalic Eye exam: PRESENT: conjunctiva pink, EOMI, PERRLA. ABSENT: scleral icterus Mouth exam: PRESENT: moist, tongue midline Respiratory exam: PRESENT: decreased breath sounds. ABSENT: rales, rhonchi, wheezes Cardiovascular exam: PRESENT: RRR. ABSENT: diastolic murmur, rubs, systolic murmur GI/Abdominal exam: PRESENT: normal bowel sounds, soft. ABSENT: distended, guarding, mass, organolmegaly, rebound, tenderness Rectal exam: PRESENT: deferred Extremities exam: PRESENT: full ROM. ABSENT: calf tenderness, clubbing, pedal edema Musculoskeletal exam: PRESENT: ambulatory Neurological exam: PRESENT: alert, awake, oriented to person, oriented to place , oriented to time, oriented to situation, CN II-XII grossly intact. ABSENT: motor sensory deficit Psychiatric exam: PRESENT: appropriate affect, normal mood. ABSENT: homicidal ideation, suicidal ideation Skin exam: PRESENT: dry, intact, warm. ABSENT: cyanosis, rash Results Laboratory Results: 03/29/18 16:45 03/27/18 05:15 03/29/18 03/29/18 09:54 16:45 WBC 6.8 RBC 3.16 L Hgb 8.7 L Hct 25.8 L MCV 82 MCH 27.7 MCHC 33.9 RDW 14.5 H Plt Count 206 Seg Neutrophils % 72.3 Lymphocytes % 11.1 L Monocytes % 13.0 Eosinophils % 3.4 Basophils % 0.2 Absolute Neutrophils 4.9 Absolute Lymphocytes 0.8 Absolute Monocytes 0.9 Absolute Eosinophils 0.2 Absolute Basophils 0.0 Blood Type O NEGATIVE Antibody Screen NEGATIVE Impressions: Chest X-Ray 03/26/18 11:16 IMPRESSION: NO ACUTE RADIOGRAPHIC FINDING IN THE CHEST. Qualifiers - * PATIENT BEING DISCHARGED WITH ANY OF THE FOLLOWING DIAGNOSIS: No Plan Discharge Plan: The patient will be discharged to home in stable condition. Time Spent: Greater than 30 Minutes
[2018-03-30 11:47] VITALS: BP 117/53
== END 2018-03-30 13:44 | disposition home health service (06) | DRG 378 ==
LOC: ER 10:01 → EH 13:53 → 3W 16:32
PROVIDERS: ADMIT Student in an Organized Health Care Education/Training Program; ATTEND Student in an Organized Health Care Education/Training Program
PROC: 0DJ08ZZ Inspection of Upper Intestinal Tract, Via Natural or Artificial Opening Endoscopic (ICD-10-PCS; principal; 2018-03-27 08:00)
PROC: 0DJD8ZZ Inspection of Lower Intestinal Tract, Via Natural or Artificial Opening Endoscopic (ICD-10-PCS; 2018-03-27 08:00)
PROC: 30233N1 Transfusion of Nonautologous Red Blood Cells into Peripheral Vein, Percutaneous Approach (ICD-10-PCS; 2018-03-29)
DX: K57.31 Diverticulosis of large intestine without perforation or abscess with bleeding (principal); D62 Acute posthemorrhagic anemia; J96.10 Chronic respiratory failure, unspecified whether with hypoxia or hypercapnia; Z66 Do not resuscitate; D12.8 Benign neoplasm of rectum; K31.7 Polyp of stomach and duodenum; K44.9 Diaphragmatic hernia without obstruction or gangrene; K64.8 Other hemorrhoids; K64.4 Residual hemorrhoidal skin tags; E78.5 Hyperlipidemia, unspecified; I10 Essential (primary) hypertension; J44.9 Chronic obstructive pulmonary disease, unspecified; E11.8 Type 2 diabetes mellitus with unspecified complications; N40.1 Benign prostatic hyperplasia with lower urinary tract symptoms; R33.8 Other retention of urine; Z99.81 Dependence on supplemental oxygen; Z87.891 Personal history of nicotine dependence
CPT/HCPCS: 36415; 36430; 43235; 45378; 71045; 80053; 81001; 813; 82272; 82550; 83036; 83735; 84484; 85025; 85027; 85610; 86850; 86900; 86901; 86920; 93005; 93010; 94640; 99291; C1758; J1940; J2704; J3490; J7030; J7620; P9016; S0164

== ENCOUNTER 2018-07-28 10:59 | Inpatient (IN) | payer MEDICARE, OTHER ==
[2018-07-28] MEDS ORDERED: IPRATROPIUM/ALBUTEROL 0.5-2.5 MG/3 ML AMPUL NEB ONE ×2 (11:27→11:32)
[2018-07-28] MEDS ORDERED: ALBUTEROL SULFATE 0.083% NEB 2.5 MG/3 ML AMPUL NEB ONE (11:33)
[2018-07-28 11:34] LABS: ABSOLUTE EOSINOPHILS # (AUTO) 0.1 10^3/uL (0.0-0.6); ABSOLUTE LYMPHOCYTES (AUTO) 0.5 10^3/uL (0.5-4.7); ABSOLUTE MONOCYTES (AUTO) 0.7 10^3/uL (0.1-1.4); ABSOLUTE NEUT (AUTO) 5.6 10^3/uL (1.7-8.2); BASOPHILS % (AUTO) 0.4 % (0-2); EOSINOPHILS % (AUTO) 1.3 % (0-6); HEMATOCRIT 32.1 % (37.9-51.0); HEMOGLOBIN 10.4 g/dL (13.5-17.0); LYMPHOCYTES % (AUTO) 7.8 % (13-45); MEAN CORPUSCULAR HGB CONC 32.2 g/dL (32.0-36.0); MEAN CORPUSCULAR VOLUME 87 fl (80-97); MONOCYTES % (AUTO) 9.8 % (3-13); PLATELET COUNT 250 10^3/uL (150-450); RED BLOOD COUNT 3.69 10^6/uL (4.35-5.55); SEGMENTED NEUTROPHILS % (AUTO) 80.7 % (42-78); TOTAL CELLS COUNTED % (AUTO) 100 %; WHITE BLOOD COUNT 6.9 10^3/uL (4.0-10.5)
--- NOTE | 2018-07-28 11:48 | ER Document Report ---
ED General - General Chief Complaint: Shortness Of Breath Stated Complaint: TOUBLE BREATHING Time Seen by Provider: 07/28/18 11:10 TRAVEL OUTSIDE OF THE [place] IN LAST 30 DAYS: No - HPI Notes: Patient is a 88-year-old male that presents to the emergency department for chief complaint of shortness of breath. Patient has COPD and has been using his home albuterol 4 times a day. He finished a course of prednisone taper and antibiotics at the beginning of June. He reports 3 weeks of slowly progressing shortness of breath but significant dyspnea over the last week. His dyspnea is worse with exertion. He denies any sputum production but does have a dry cough. He denies any fevers or chills. He denies chest pain, nausea, vomiting, abdominal pain, and palpitations. Patient received aspirin and Solu-Medrol by EMS prior to arrival Past Medical History: COPD Past Surgical History: Reviewed in chart Social History: Denies drugs alcohol and tobacco Family History: Reviewed and noncontributory for presenting illness Allergies: Reviewed, see documented allergy list. REVIEW OF SYSTEMS: CONSTITUTIONAL : No fever No chills No diaphoresis No recent illness EENT: No vision changes No congestion No sore throat CARDIOVASCULAR: No chest pain No palpitations RESPIRATORY: shortness of breath cough No difficulty breathing GASTROINTESTINAL: No abdominal pain No nausea No vomiting No diarrhea GENITOURINARY: No dysuria No hematuria No difficulty urinating MUSCULOSKELETAL: No back pain No leg pain No arm pain SKIN: No rashes No lesions LYMPHATIC: No swollen, enlarged glands. NEUROLOGICAL: No lightheadedness No headache No weakness No paresthesias PSYCHIATRIC: No anxiety No depression PHYSICAL EXAMINATION: Vital signs reviewed, nursing noted reviewed. GENERAL: Well-appearing, well-nourished and in no acute distress. HEAD: Atraumatic, normocephalic. EYES: Eyes appear normal, extraocular movements intact, sclera anicteric, conjunctiva are normal. ENT: nares patent, oropharynx clear without exudates. Moist mucous membranes. NECK: Normal range of motion, supple without lymphadenopathy LUNGS: Diminished bilaterally, no tachypnea or accessory muscle use, no wheezing HEART: Regular rate and rhythm without murmurs ABDOMEN: Soft, nontender, normoactive bowel sounds. No rebound, guarding, or rigidity. No masses appreciated. EXTREMITIES: Nontender, good range of motion, no pitting or edema. NEUROLOGICAL: No focal neurological deficits. Moves all extremities spontaneously Motor and sensory grossly intact on exam. PSYCH: Normal mood, normal affect. SKIN: Warm, Dry, normal turgor, no rashes or lesions noted on exposed skin - Related Data Allergies/Adverse Reactions: Penicillins Adverse Reaction (Verified 03/26/18 12:16) Past Medical History - Social History Smoking Status: Former Smoker Family History: CAD, Malignancy Patient has suicidal ideation: No Patient has homicidal ideation: No - Past Medical History Cardiac Medical History: Reports: Hx Hypercholesterolemia, Hx Hypertension Pulmonary Medical History: Reports: Hx COPD Endocrine Medical History: Reports: Hx Diabetes Mellitus Type 2 - DIET CONTROLLED Renal/ Medical History: Denies: Hx Peritoneal Dialysis GI Medical History: Reports: Hx Diverticulitis, Hx Hiatal Hernia Past Surgical History: Reports: Hx Herniorrhaphy, Other Review of Systems - Review of Systems Notes: Dictated Physical Exam - Vital signs Vitals: Resp BP Pulse Ox 25 H 146/82 H 98 07/28/18 11:03 07/28/18 11:03 07/28/18 11:03 - Notes Notes: Dictated Course - Re-evaluation Re-evalutation: 07/28/18 11:46 Vitals reviewed. Nursing notes reviewed. EKG shows tachycardia with no acute ischemic changes. Patient given DuoNeb and albuterol for his COPD exacerbation. He received aspirin and steroids prior to arrival by EMS. 07/28/18 12:46 Patient reevaluated after aresols. he stats he is feeling less short of breath. Lab work shows an elevated troponin. I again asked patient if he was having any chest pain and he said no however his states he has been complaining of intermittent chest pain for the last few days. Patient then states that he has had some discomfort in his chest which she thought was related to his COPD and frequent coughing. Currently he states he is not having any chest pain. The remainder of his workup is unremarkable. Patient has no pneumonia or leukocytosis, or increased sputum and antibiotics not currently indicated. Will be admitted to the hospital for telemetry monitoring and further evaluation of his indeterminate troponin and chest pains. Case discussed with Dr. Garduno who accepted admission. Laboratory 07/28/18 07/28/18 07/28/18 11:10 11:10 11:10 WBC 6.9 RBC 3.69 L Hgb 10.4 L Hct 32.1 L MCV 87 MCH 28.0 MCHC 32.2 RDW 16.0 H Plt Count 250 Seg Neutrophils % 80.7 H Lymphocytes % 7.8 L Monocytes % 9.8 Eosinophils % 1.3 Basophils % 0.4 Absolute Neutrophils 5.6 Absolute Lymphocytes 0.5 Absolute Monocytes 0.7 Absolute Eosinophils 0.1 Absolute Basophils 0.0 Sodium 143.9 Potassium 4.2 Chloride 97 L Carbon Dioxide 37 H Anion Gap 10 BUN 22 H Creatinine 0.65 Est GFR ( Amer) > 60 Est GFR (Non-Af Amer) > 60 Glucose 146 H Calcium 8.6 Total Bilirubin 0.7 Direct Bilirubin 0.2 Neonat Total Bilirubin Not Reportable Neonat Direct Bilirubin Not Reportable Neonat Indirect Bili Not Reportable AST 40 ALT 33 Alkaline Phosphatase 106 Troponin I 0.054 Total Protein 7.0 Albumin 3.7 Chest X-Ray 07/28/18 11:10 IMPRESSION: 1. Cardiomegaly with small bilateral pleural effusions and/or pleural thickening. There is no focal airspace opacity or evidence of overt pulmonary edema in AP projection. 2. Calcified bilateral hilar and mediastinal lymph nodes, similar appearance to prior examination and in keeping with stigmata of prior granulomatous infection or pulmonary sarcoidosis. Correlate with clinical history. - Vital Signs Vital signs: Temp Pulse Resp BP Pulse Ox 98.2 F 22 H 140/86 H 97 07/28/18 11:26 07/28/18 11:31 07/28/18 11:31 07/28/18 11:31 - Laboratory Result Diagrams: 07/28/18 11:10 07/28/18 11:10 Laboratory results interpreted by me: 07/28/18 07/28/18 11:10 11:10 RBC 3.69 L Hgb 10.4 L Hct 32.1 L RDW 16.0 H Seg Neutrophils % 80.7 H Lymphocytes % 7.8 L Chloride 97 L Carbon Dioxide 37 H BUN 22 H Glucose 146 H - EKG Interpretation by Me Additional EKG results interpreted by me: 07/28/18 11:46 Interpreted by myself 1113: Sinus tachycardia, rate 110, normal axis, frequent PVCs and PACs, no ST elevation Discharge - Discharge Clinical Impression: COPD exacerbation, Elevated troponin Chest pain Qualifiers: Chest pain type: other chest pain Qualified Code(s): R07.89 - Other chest pain ; R07.8 - Other chest pain Condition: Stable Disposition: ADMITTED OBSERVATION Admitting Provider: Hospitalist Unit Admitted: Telemetry Referrals: MONSTE TOM MD [Primary Care Provider] - Follow up as needed
[2018-07-28 11:53] LABS: ALANINE AMINOTRANSFERASE 33 U/L (21-72); ALBUMIN 3.7 g/dL (3.5-5.0); ALKALINE PHOSPHATASE 106 U/L (38-126); ASPARTATE AMINO TRANSFERASE 40 U/L (17-59); BILIRUBIN,DIRECT 0.2 mg/dL (0.0-0.4); BILIRUBIN,TOTAL 0.7 mg/dL (0.2-1.3); BLOOD UREA NITROGEN 22 mg/dL (7-20); CALCIUM 8.6 mg/dL (8.4-10.2); CHLORIDE 97 mmol/L (98-107); GLUCOSE 146 mg/dL (75-110); POTASSIUM 4.2 mmol/L (3.6-5.0); SODIUM 143.9 mmol/L (137-145)
[2018-07-28 12:00] LABS: ANION GAP 10 (5-19); CARBON DIOXIDE 37 mmol/L (22-30)
--- NOTE | 2018-07-28 12:02 | RADIOLOGY REPORT (SQ) ---
EXAM DESCRIPTION: CHEST SINGLE VIEW COMPLETED DATE/TIME: 07/28/2018 11:42 am REASON FOR STUDY: SOB COMPARISON: 07/26/2009 EXAM PARAMETERS: NUMBER OF VIEWS: One view. TECHNIQUE: Single frontal radiographic view of the chest acquired. RADIATION DOSE: NA LIMITATIONS: None. FINDINGS: LUNGS AND PLEURA: Probable small bilateral pleural effusions and/or pleural thickening. MEDIASTINUM AND HILAR STRUCTURES: Calcified bilateral hilar and mediastinal lymph nodes, similar in a ppearance to prior examination and in keeping with stigmata of prior granulomatous infection or pulmo nary sarcoidosis. HEART AND VASCULAR STRUCTURES: Cardiomegaly with calcification of the thoracic aorta. BONES: No acute findings. HARDWARE: None in the chest. OTHER: No other significant finding. IMPRESSION: 1. Cardiomegaly with small bilateral pleural effusions and/or pleural thickening. There is no focal airspace opacity or evidence of overt pulmonary edema in AP projection. 2. Calcified bilateral hilar and mediastinal lymph nodes, similar appearance to prior examination an d in keeping with stigmata of prior granulomatous infection or pulmonary sarcoidosis. Correlate with clinical history. TECHNICAL DOCUMENTATION: JOB ID: [id number] [employer]- All Rights Reserved Reading location - IP/workstation name: [id number]
[2018-07-28] MEDS ORDERED: ONDANSETRON 4 MG TAB.RAPDIS PO PRN (15:26)
[2018-07-28] MEDS ORDERED: ZOLPIDEM TARTRATE 5 MG TABLET PO PRN (15:26)
[2018-07-28] MEDS ORDERED: ONDANSETRON HCL INJ/PF 4 MG/2 ML SDV IV PRN (15:26)
[2018-07-28] MEDS ORDERED: MAG HYDROX/AL HYDROX/SIMETH SUSP 30 ML UDCUP PO PRN (15:26)
[2018-07-28] MEDS ORDERED: HYDRALAZINE HCL INJ/PF 20 MG/1 ML SDV IV PRN (15:36)
[2018-07-28] MEDS ORDERED: MORPHINE SULFATE 10 MG/ML INJ IV PRN ×3 (15:36)
[2018-07-28] MEDS: LEVALBUTEROL HCL NEB 1.25 MG/3 ML AMPUL NEB SCH (16:45)
[2018-07-28] MEDS: IPRATROPIUM BROMIDE 0.02% NEB 0.5 MG/2.5 ML AMPUL NEB SCH (16:45)
[2018-07-28] MEDS ORDERED: (PENDING PHARMACY ID) (Lovastatin [Altoprev] 20 MG) PO SCH (17:00)
[2018-07-28] MEDS: ALBUTEROL SULFATE 0.083% NEB 2.5 MG/3 ML AMPUL NEB PRN ×2 (17:58→20:08)
[2018-07-28 18:00] LABS: CREATINE KINASE MB 3.75 ng/mL (<4.55); TROPONIN I 0.049 ng/mL
[2018-07-28] MEDS ORDERED: (PENDING PHARMACY ID) (Guaifenesin [Mucinex] 1,200 MG) PO SCH (18:00)
[2018-07-28] MEDS: METHYLPREDNISOLONE INJ 40 MG/1 ML SDV IV SCH (18:25)
[2018-07-28] MEDS: DOCUSATE SODIUM 100 MG CAPSULE PO SCH (18:25)
[2018-07-28] MEDS: LANSOPRAZOLE 15 MG TAB.RAP.DR PO SCH (18:25)
--- NOTE | 2018-07-28 20:07 | PDOC H&P ---
History of Present Illness Admission Date/PCP: 07/28/18 13:48 MONTSE TOM MD Patient complains of: Dyspnea and chest pain History of Present Illness: RENALDO DAWSON is a 88 year old male who presented to the emergency room with a 3-week history of progressively worsening dyspnea which had shown significant acceleration over the last 7 days. His dyspnea is now severe and it gets worse with exertion and cough. He admits a harsh intermittent nonproductive cough without accompanying fever or chills. He originally denied having chest pain however his reminded him that he has been complaining of chest pain every day. He explains that it is "not that kind of chest pain", in that he is experiencing chest tightness associated with his dyspnea and cough. He does not feel that the chest pain is associated with his heart. He does however deny nausea, vomiting, abdominal pain, diarrhea, palpitations and syncope. His summoned EMS to bring him to the hospital because he was too weak and short of breath to get up at home. EMS treated the patient with oxygen as well as aspirin therapy and administered a intravenous dose of Solu- Medrol during the transport to the hospital. Patient is a 88-year-old male that presents to the emergency department for chief complaint of shortness of breath. Patient has COPD and has been using his home albuterol 4 times a day. He finished a course of prednisone taper and antibiotics at the beginning of June. He reports 3 weeks of slowly progressing shortness of breath but significant dyspnea over the last week. His dyspnea is worse with exertion. He denies any sputum production but does have a dry cough. He denies any fevers or chills. He denies chest pain, nausea, vomiting, abdominal pain, and palpitations. Patient received aspirin and Solu-Medrol by EMS prior to arrival Past Medical History: COPD Past Surgical History: Reviewed in chart Social History: Denies drugs alcohol and tobacco Family History: Reviewed and noncontributory for presenting illness Allergies: Reviewed, see documented allergy list. Past Medical History Cardiac Medical History: Reports: Congestive Heart Failure, Coronary Artery Disease, Myocardial Infarction, Hyperlipidema, Hypertension Pulmonary Medical History: Reports: Bronchitis, Chronic Obstructive Pulmonary Disease (COPD), Pneumonia, Respiratory Failure Denies: Tuberculosis EENT Medical History: Reports: None Neurological Medical History: Denies: Hemorrhagic CVA, Ischemic CVA, Seizures Endocrine Medical History: Reports: Diabetes Mellitus Type 2 - DIET CONTROLLED Denies: Diabetes Mellitus Type 1 Renal/ Medical History: Denies: Chronic Kidney Disease, Nephrolithiasis Malignancy Medical History: Reports: None GI Medical History: Reports: Diverticulitis - With lower GI bleed, Hiatal Hernia Musculoskeltal Medical History: Denies: Arthritis, Gout Skin Medical History: Denies: Eczema, Psoriasis Psychiatric Medical History: Denies: Alcohol Dependency, Depression, Substance Abuse, Tobacco Dependency Traumatic Medical History: Reports: None Hematology: Reports: Anemia Denies: Bleeding Tendencies Infectious Medical History: Reports: None Past Surgical History Past Surgical History: Reports: Herniorrhaphy, Other - Colonoscopy Social History Information Source: Patient Lives with: Spouse/Significant other Smoking Status: Former Smoker Cigarettes Packs Per Day: 1 Number of Years Smokin Frequency of Alcohol Use: Rare Hx Recreational Drug Use: No Drugs: None Hx Prescription Drug Abuse: No - Advance Directive Resuscitation Status: Full Code Surrogate healthcare decision maker:: Family History Family History: CAD, Malignancy Parental Family History Reviewed: Yes Children Family History Reviewed: Yes Sibling(s) Family History Reviewed.: Yes Medication/Allergy Home Medications: Albuterol Sulfate [Ventolin 0.083% Neb 2.5 mg/3 mL Ampul] 2.5 mg NEB [id number] PRN 07/28/18 Aspirin [Adult Low Dose Aspirin EC] 81 mg PO DAILY 07/28/18 Cetirizine HCl [Zyrtec 10 mg Tablet] 10 mg PO DAILY 07/28/18 Docusate Sodium [Colace 100 mg Capsule] 100 mg PO BIDP PRN 07/28/18 Finasteride [Proscar 5 mg Tablet] 5 mg PO DAILY 07/28/18 Guaifenesin [Mucinex] 1,200 mg PO BID 07/28/18 Ipratropium [place] 2 sprays NASL TID 07/28/18 Ipratropium/Albuterol Sulfate [Combivent Respimat 4 gm Mdi] 1 puff IH QID Lovastatin [Altoprev] 20 mg PO WSUPPER 07/28/18 Omeprazole 20 mg PO QAM 07/28/18 Tamsulosin HCl [Flomax 0.4 mg Cap.sr] 0.4 mg PO QHS 07/28/18 Umeclidinium [place] [Incruse Ellipta] 1 puff IH DAILY 07/28/18 Allergies/Adverse Reactions: Penicillins Adverse Reaction (Verified 03/26/18 12:16) Physical Exam Vital Signs: Temp Pulse Resp BP Pulse Ox 98.3 F 100 20 150/72 H 100 07/28/18 17:55 07/28/18 17:58 07/28/18 17:58 07/28/18 17:55 07/28/18 17:55 Intake & Output 07/26/18 07/27/18 07/28/18 23:59 23:59 23:59 Weight 86 kg Results Laboratory Results: 07/28/18 07/28/18 17:09 17:09 Creatine Kinase 107 CK-MB (CK-2) 3.75 Troponin I 0.049 EKG Comments: Sinus tachycardia with occasional PVCs and sinus arrhythmia. Impressions: Chest X-Ray 07/28/18 11:10 IMPRESSION: 1. Cardiomegaly with small bilateral pleural effusions and/or pleural thickening. There is no focal airspace opacity or evidence of overt pulmonary edema in AP projection. 2. Calcified bilateral hilar and mediastinal lymph nodes, similar appearance to prior examination and in keeping with stigmata of prior granulomatous infection or pulmonary sarcoidosis. Correlate with clinical history. Status: Image reviewed by me - Mild cardiomegaly with no acute changes noted in the chest Assessment & Plan - Diagnosis (1) Chest pain Qualifiers: Chest pain type: other chest pain Qualified Code(s): R07.89 - Other chest pain; R07.8 - Other chest pain Is this a current diagnosis for this admission?: Yes Plan: Patient will have serial cardiac enzyme determinations as well as serial EKGs performed to assess the possibility of myocardial injury or ischemia. He will be observed on telemetry monitoring. (2) COPD exacerbation Is this a current diagnosis for this admission?: Yes Plan: Patient will be treated with an aggressive pulmonary toilet utilizing Xopenex, Atrovent, Pulmicort and albuterol nebulizers as well as intravenous steroids and supplemental oxygen. This will be performed with daily or more frequent serial evaluations and daily laboratory assessments including CBC and a metabolic profile. (3) Physical deconditioning Is this a current diagnosis for this admission?: Yes Plan: Patient has significant physical deconditioning and will require physical therapy. It is possible this patient will need to be placed in a snf facility for therapy prior to be returned to his home as it appears he was probably not well condition after his most recent hospitalization and never really recovered his full strength. This is the opinion of his and it appears to be well founded. (4) Elevated troponin Is this a current diagnosis for this admission?: Yes Plan: Patient's troponin on today's visit is elevated from his previous baseline about a month ago. Level was approximately 0.05 but does not appear to be significantly deviating over time from that level. Further troponin levels will be obtained and reassessment will be done with more information. (5) Chronic respiratory failure Qualifiers: Respiratory failure complication: hypoxia Qualified Code(s): J96.11 - Chronic respiratory failure with hypoxia Is this a current diagnosis for this admission?: Yes Plan: Patient has chronic hypoxic respiratory failure which is not significantly exacerbated at this time. He is well maintained at his usual oxygen saturation of 90-94 with the 3 L/min oxygen via nasal cannula. Patient will be continued on his supplemental oxygen with additional oxygen or early support is required. - Time Time Spent: Greater than 70 Minutes Medications reviewed and adjusted accordingly: Yes - Inpatient Certification Based on my medical assessment, after consideration of the patient's comorbidities, presenting symptoms, or acuity I expect that the services needed warrant INPATIENT care.: Yes I certify that my determination is in accordance with my understanding of Medicare's requirements for reasonable and necessary INPATIENT services [42 CFR 412.3e].: Yes Medical Necessity: Need Close Monitoring Due to Risk of Patient Decompensation, Need For Continuous Telemetry Monitoring, Need for Nebulizer Therapy and Monitoring of Response, Risk of Complication if Not Cared For in Hospital
[2018-07-28] MEDS: BUDESONIDE NEB 0.5 MG/2 ML AMPUL NEB SCH (20:08)
[2018-07-28] MEDS: HEPARIN SOD (PORCINE) 5,000 UNIT/ML 1 ML SYRINGE SUBCUT SCH (21:37)
[2018-07-28] MEDS: TAMSULOSIN HCL 0.4 MG CAP.SR.24H PO SCH (21:38)
[2018-07-28] MEDS: GUAIFENESIN 600 MG TABLET.SA PO SCH (21:38)
[2018-07-28 23:57] LABS: CREATINE KINASE MB 2.93 ng/mL (<4.55); TROPONIN I 0.047 ng/mL
[2018-07-29] MEDS: LEVALBUTEROL HCL NEB 1.25 MG/3 ML AMPUL NEB SCH ×3 (00:06→16:15)
[2018-07-29] MEDS: IPRATROPIUM BROMIDE 0.02% NEB 0.5 MG/2.5 ML AMPUL NEB SCH ×3 (00:06→16:15)
[2018-07-29] MEDS: METHYLPREDNISOLONE INJ 40 MG/1 ML SDV IV SCH ×2 (01:00→06:06)
[2018-07-29 05:46] LABS: HEMATOCRIT 29.3 % (37.9-51.0); HEMOGLOBIN 9.8 g/dL (13.5-17.0); MEAN CORPUSCULAR HEMOGLOBIN 28.5 pg (27.0-33.4); MEAN CORPUSCULAR HGB CONC 33.5 g/dL (32.0-36.0); MEAN CORPUSCULAR VOLUME 85 fl (80-97); PLATELET COUNT 235 10^3/uL (150-450); RED BLOOD COUNT 3.44 10^6/uL (4.35-5.55); RED CELL DISTRIBUTION WIDTH 15.7 % (11.5-14.0); WHITE BLOOD COUNT 10.5 10^3/uL (4.0-10.5)
[2018-07-29 06:04] LABS: ABSOLUTE LYMPHOCYTES# (MANUAL) 0.2 10^3/uL (0.5-4.7); ABSOLUTE MONOCYTES # (MANUAL) 0.1 10^3/uL (0.1-1.4); ABSOLUTE NEUTROPHILS# (MANUAL) 10.2 10^3/uL (1.7-8.2); BASOPHILS % (MANUAL) 0 % (0-2); EOSINOPHILS % (MANUAL) 0 % (0-6); LYMPHOCYTES % (MANUAL) 2 % (13-45); MONOCYTES % (MANUAL) 1 % (3-13); SEGMENTED NEUTROPHILS % (MAN) 97 % (42-78); TOTAL CELLS COUNTED 100
[2018-07-29] MEDS: LANSOPRAZOLE 15 MG TAB.RAP.DR PO SCH ×2 (06:06→18:12)
[2018-07-29] MEDS: HEPARIN SOD (PORCINE) 5,000 UNIT/ML 1 ML SYRINGE SUBCUT SCH ×3 (06:06→21:30)
[2018-07-29 06:07] LABS: ANION GAP 7 (5-19); BLOOD UREA NITROGEN 25 mg/dL (7-20); CALCIUM 8.6 mg/dL (8.4-10.2); CARBON DIOXIDE 37 mmol/L (22-30); CHLORIDE 97 mmol/L (98-107); CREATINE KINASE 92 U/L (55-170); GLUCOSE 140 mg/dL (75-110); POTASSIUM 4.4 mmol/L (3.6-5.0); SODIUM 140.7 mmol/L (137-145)
[2018-07-29 06:08] LABS: ANISOCYTOSIS 1+; TOXIC VACUOLATION PRESENT
[2018-07-29 06:09] LABS: HELMET CELLS 1+; OVALOCYTES 2+; PLATELET COMMENT ADEQUATE; POIKILOCYTOSIS 2+
[2018-07-29 06:18] LABS: TROPONIN I 0.048 ng/mL
[2018-07-29 06:21] LABS: FREE T3 1.78 pg/mL (2.77-5.27); FREE T4 (FREE THYROXINE) 0.93 ng/dL (0.78-2.19)
[2018-07-29 06:35] LABS: THYROID STIMULATING HORMONE 0.68 uIU/mL (0.47-4.68)
[2018-07-29] MEDS: BUDESONIDE NEB 0.5 MG/2 ML AMPUL NEB SCH ×2 (07:56→20:09)
[2018-07-29] MEDS: DOCUSATE SODIUM 100 MG CAPSULE PO SCH ×2 (09:19→18:12)
[2018-07-29] MEDS: ASPIRIN 81 MG TABLET, ENT COATED PO SCH (09:19)
[2018-07-29] MEDS: FINASTERIDE 5 MG TABLET PO SCH (09:20)
[2018-07-29] MEDS: GUAIFENESIN 600 MG TABLET.SA PO SCH ×2 (09:20→21:31)
--- NOTE | 2018-07-29 10:45 | EKG REPORT ---
SEVERITY:- NORMAL ECG - SINUS RHYTHM FREQUENT APCs : Confirmed by: Luz Rae 29-Jul-2018 10:44:33
--- NOTE | 2018-07-29 10:46 | EKG REPORT ---
SEVERITY:- ABNORMAL ECG - SINUS TACHYCARDIA PROBABLE LEFT ATRIAL ABNORMALITY : Confirmed by: Luz Rae 29-Jul-2018 10:44:41
[2018-07-29] MEDS: ALBUTEROL SULFATE 0.083% NEB 2.5 MG/3 ML AMPUL NEB PRN ×2 (13:46→20:10)
--- NOTE | 2018-07-29 16:39 | PDOC PROGRESS REPORT ---
Subjective Progress Note for:: 07/29/18 Subjective:: RENALDO DAWSON is a 88 year old male who presented to the emergency room with a 3-week history of progressively worsening dyspnea which had shown significant acceleration over the last 7 days. His dyspnea is now severe and it gets worse with exertion and cough. He admits a harsh intermittent nonproductive cough without accompanying fever or chills. He originally denied having chest pain however his reminded him that he has been complaining of chest pain every day. He explains that it is "not that kind of chest pain", in that he is experiencing chest tightness associated with his dyspnea and cough. He does not feel that the chest pain is associated with his heart. He does however deny nausea, vomiting, abdominal pain, diarrhea, palpitations and syncope. His summoned EMS to bring him to the hospital because he was too weak and short of breath to get up at home. EMS treated the patient with oxygen as well as aspirin therapy and administered a intravenous dose of Solu- Medrol during the transport to the hospital. 07/29/2018: There is separate seems to be somewhat improved today with his dyspnea well- controlled while at rest and his cough resolving. He did develop significant dyspnea with agitation earlier when he had some difficulty using the urinal and wound up soiling himself. This caused him a great deal of embarrassment and he developed dyspnea with the anxiety and frustration of the moment. He has been tolerating a diet well and has not experienced any nausea or vomiting. He is willing to discuss a variety of rehabilitation options as he realizes that he needs to increase his overall strength and endurance in order to be able to function appropriately at home. Discharge planning will be discussing all the patient's available options with him later today in the presence of his family and . He was very happy to learn that his cardiac enzymes are negative and that his EKG showed no evidence of acute cardiac ischemia or injury. Reason For Visit: CHEST PAIN, ACUTE EXACERBATION OF COPD Physical Exam Vital Signs: Temp Pulse Resp BP Pulse Ox 98.3 F 115 H 16 134/81 H 95 07/29/18 11:36 07/29/18 14:00 07/29/18 13:46 07/29/18 11:36 07/29/18 13:46 Intake & Output 07/27/18 07/28/18 07/29/18 23:59 23:59 23:59 Intake Total 300 Output Total 20 Balance 280 Weight 83.2 kg General appearance: PRESENT: no acute distress, cooperative Head exam: PRESENT: atraumatic, normocephalic Eye exam: PRESENT: conjunctiva pink, EOMI Ear exam: PRESENT: normal external ear exam. ABSENT: bleeding Mouth exam: PRESENT: neck supple, tongue midline Neck exam: ABSENT: thyromegaly, tracheal deviation Respiratory exam: PRESENT: decreased breath sounds - Breath sounds are decreased throughout all lung [place] consistent with moderate to severe chronic obstructive pulmonary disease., prolonged expiratory phas - Mildly prolonged expiratory phase, symmetrical, wheezes - Mild expiratory wheezes noted air motion is judged to be good. ABSENT: accessory muscle use, rales, retraction, rhonchi Cardiovascular exam: PRESENT: RRR. ABSENT: clicks, gallop, rubs Vascular exam: PRESENT: normal capillary refill. ABSENT: pallor GI/Abdominal exam: PRESENT: normal bowel sounds, soft Rectal exam: PRESENT: deferred Extremities exam: ABSENT: joint swelling, pedal edema Musculoskeletal exam: ABSENT: deformity, dislocation Neurological exam: PRESENT: alert, oriented to person, oriented to place, oriented to time, oriented to situation, CN II-XII grossly intact. ABSENT: motor sensory deficit Psychiatric exam: PRESENT: appropriate affect, normal mood Skin exam: PRESENT: dry, intact, warm - 14[address] Results Laboratory Results: 07/29/18 04:56 07/29/18 04:56 07/29/18 07/29/18 07/29/18 04:56 04:56 04:56 WBC 10.5 RBC 3.44 L Hgb 9.8 L Hct 29.3 L MCV 85 MCH 28.5 MCHC 33.5 RDW 15.7 H Plt Count 235 Seg Neutrophils % Not Reportable Lymphocytes % Not Reportable Monocytes % Not Reportable Eosinophils % Not Reportable Basophils % Not Reportable Absolute Neutrophils Not Reportable Absolute Lymphocytes Not Reportable Absolute Monocytes Not Reportable Absolute Eosinophils Not Reportable Absolute Basophils Not Reportable Sodium 140.7 Potassium 4.4 Chloride 97 L Carbon Dioxide 37 H Anion Gap 7 BUN 25 H Creatinine 0.69 Est GFR ( Amer) > 60 Est GFR (Non-Af Amer) > 60 Glucose 140 H Calcium 8.6 Magnesium 1.8 TSH 0.68 Free T4 0.93 Free T3 pg/mL 1.78 L 07/28/18 07/28/18 07/29/18 23:10 23:10 04:56 Creatine Kinase 88 CK-MB (CK-2) 2.93 3.00 Troponin I 0.047 0.048 NT-Pro-B Natriuret Pep 1420 H 07/29/18 04:56 Creatine Kinase 92 CK-MB (CK-2) Troponin I NT-Pro-B Natriuret Pep Impressions: Chest X-Ray 07/28/18 11:10 IMPRESSION: 1. Cardiomegaly with small bilateral pleural effusions and/or pleural thickening. There is no focal airspace opacity or evidence of overt pulmonary edema in AP projection. 2. Calcified bilateral hilar and mediastinal lymph nodes, similar appearance to prior examination and in keeping with stigmata of prior granulomatous infection or pulmonary sarcoidosis. Correlate with clinical history. Assessment & Plan - Diagnosis (1) Chest pain Qualifiers: Chest pain type: other chest pain Qualified Code(s): R07.89 - Other chest pain; R07.8 - Other chest pain Is this a current diagnosis for this admission?: Yes Plan: Patient will have serial cardiac enzyme determinations as well as serial EKGs performed to assess the possibility of myocardial injury or ischemia. He will be observed on telemetry monitoring. 07/29/2018: Patient's cardiac enzymes and serial EKG showed no evidence of acute cardiac ischemia or injury. night monitor showed no aberrant arrhythmias. No further evaluation for patient's cardiac status will be undertaken at this time. (2) COPD exacerbation Is this a current diagnosis for this admission?: Yes Plan: Patient will be treated with an aggressive pulmonary toilet utilizing Xopenex, Atrovent, Pulmicort and albuterol nebulizers as well as intravenous steroids and supplemental oxygen. This will be performed with daily or more frequent serial evaluations and daily laboratory assessments including CBC and a metabolic profile. 07/29/2018: Since respiratory status is improved from admission. His wheezes are significantly diminished and his air movement is significantly improved. He is also doing well on supplemental oxygen at a level lower than he normally uses at home. We will continue with his current treatment to support his ongoing pulmonary wellness. (3) Physical deconditioning Is this a current diagnosis for this admission?: Yes Plan: Patient has significant physical deconditioning and will require physical therapy. It is possible this patient will need to be placed in a penitentiary facility for therapy prior to be returned to his home as it appears he was probably not well conditioned after his most recent hospitalization and never really recovered his full strength. This is the opinion of his and it appears to be well founded. 07/29/2018: I have asked discharge planning to evaluate the patient for a variety of post discharge options. This would include home health with physical therapy, penitentiary facilities, acute rehabilitation hospitals, and a palliative care program for which he qualifies. I have discussed this with the patient and his family and they will be interested in discussing things with the discharge planning services. I informed patient that his reasons for admission have essentially been resolved and I do not have a good reason to keep him hospitalized beyond 07/30 or 07/31 and as such I have encouraged him to make a decision regarding his disposition. He expresses to me that the decision will be whenever his decides. (4) Elevated troponin Is this a current diagnosis for this admission?: Yes Plan: Patient's troponin on today's visit is elevated from his previous baseline about a month ago. Level was approximately 0.05 but does not appear to be significantly deviating over time from that level. Further troponin levels will be obtained and reassessment will be done with more information. 07/29/2018: Patient's troponins were measured every 6 hours x3 and have been essentially unchanged throughout the series. No further evaluation will be performed. (5) Chronic respiratory failure Qualifiers: Respiratory failure complication: hypoxia Qualified Code(s): J96.11 - Chronic respiratory failure with hypoxia Is this a current diagnosis for this admission?: Yes Plan: Patient has chronic hypoxic respiratory failure which is not significantly exacerbated at this time. He is well maintained at his usual oxygen saturation of 90-94 with the 3 L/min oxygen via nasal cannula. Patient will be continued on his supplemental oxygen with additional oxygen or early support is required. 07/29/2018: Patient continues to do reasonably well with his tolerance of a slightly lower oxygen flow than his baseline at home. His O2 sats have maintained between 90 and 94% on 3 L per nasal cannula. He does develop some dyspnea and respiratory distress with anxiety and excessive activity. When this occurs he becomes fatigued very quickly and has a difficult time motivating himself to engage in any physical activity or participate in discussions with his family. Again it would appear that the patient has essentially a good baseline but needs to have significant reconditioning to improve his endurance for activities. - Time Time Spent with patient: 15-24 minutes
[2018-07-29] MEDS: TAMSULOSIN HCL 0.4 MG CAP.SR.24H PO SCH (21:31)
[2018-07-30] MEDS: LEVALBUTEROL HCL NEB 1.25 MG/3 ML AMPUL NEB SCH ×4 (00:15→23:58)
[2018-07-30] MEDS: IPRATROPIUM BROMIDE 0.02% NEB 0.5 MG/2.5 ML AMPUL NEB SCH ×4 (00:15→23:58)
--- NOTE | 2018-07-30 00:18 | EKG REPORT ---
SEVERITY:- ABNORMAL ECG - SINUS TACHYCARDIA : Confirmed by: Luz Rae 30-Jul-2018 00:17:32
[2018-07-30 04:55] LABS: HEMATOCRIT 30.5 % (37.9-51.0); MEAN CORPUSCULAR HEMOGLOBIN 27.9 pg (27.0-33.4); MEAN CORPUSCULAR HGB CONC 32.7 g/dL (32.0-36.0); MEAN CORPUSCULAR VOLUME 85 fl (80-97); PLATELET COUNT 222 10^3/uL (150-450); RED BLOOD COUNT 3.57 10^6/uL (4.35-5.55); RED CELL DISTRIBUTION WIDTH 15.5 % (11.5-14.0); WHITE BLOOD COUNT 11.6 10^3/uL (4.0-10.5)
[2018-07-30] MEDS: HEPARIN SOD (PORCINE) 5,000 UNIT/ML 1 ML SYRINGE SUBCUT SCH ×3 (05:12→21:48)
[2018-07-30] MEDS: LANSOPRAZOLE 15 MG TAB.RAP.DR PO SCH ×2 (05:12→17:21)
[2018-07-30 05:15] LABS: ABSOLUTE LYMPHOCYTES# (MANUAL) 0.1 10^3/uL (0.5-4.7); ABSOLUTE MONOCYTES # (MANUAL) 1.9 10^3/uL (0.1-1.4); ABSOLUTE NEUTROPHILS# (MANUAL) 9.6 10^3/uL (1.7-8.2); ANION GAP 9 (5-19); BAND NEUTROPHILS % (MANUAL) 5 % (3-5); BASOPHILS % (MANUAL) 0 % (0-2); BLOOD UREA NITROGEN 27 mg/dL (7-20); CALCIUM 8.9 mg/dL (8.4-10.2); CARBON DIOXIDE 35 mmol/L (22-30); CHLORIDE 96 mmol/L (98-107); EOSINOPHILS % (MANUAL) 0 % (0-6); GLUCOSE 89 mg/dL (75-110); LYMPHOCYTES % (MANUAL) 1 % (13-45); MONOCYTES % (MANUAL) 16 % (3-13); POTASSIUM 4.5 mmol/L (3.6-5.0); SEGMENTED NEUTROPHILS % (MAN) 78 % (42-78); SODIUM 140.1 mmol/L (137-145); TOTAL CELLS COUNTED 100
[2018-07-30 05:17] LABS: ANISOCYTOSIS 1+; PLATELET CLUMPS PRESENT; PLATELET COMMENT ADEQUATE
[2018-07-30] MEDS: BUDESONIDE NEB 0.5 MG/2 ML AMPUL NEB SCH ×2 (08:27→19:50)
--- NOTE | 2018-07-30 09:36 | PDOC PROGRESS REPORT ---
Subjective Progress Note for:: 07/30/18 Subjective:: RENALDO DAWSON is a 88 year old male who presented to the emergency room with a 3-week history of progressively worsening dyspnea which had shown significant acceleration over the last 7 days. His dyspnea is now severe and it gets worse with exertion and cough. He admits a harsh intermittent nonproductive cough without accompanying fever or chills. He originally denied having chest pain however his reminded him that he has been complaining of chest pain every day. He explains that it is "not that kind of chest pain", in that he is experiencing chest tightness associated with his dyspnea and cough. He does not feel that the chest pain is associated with his heart. He does however deny nausea, vomiting, abdominal pain, diarrhea, palpitations and syncope. His summoned EMS to bring him to the hospital because he was too weak and short of breath to get up at home. EMS treated the patient with oxygen as well as aspirin therapy and administered a intravenous dose of Solu- Medrol during the transport to the hospital. 07/29/2018: There is separate seems to be somewhat improved today with his dyspnea well- controlled while at rest and his cough resolving. He did develop significant dyspnea with agitation earlier when he had some difficulty using the urinal and wound up soiling himself. This caused him a great deal of embarrassment and he developed dyspnea with the anxiety and frustration of the moment. He has been tolerating a diet well and has not experienced any nausea or vomiting. He is willing to discuss a variety of rehabilitation options as he realizes that he needs to increase his overall strength and endurance in order to be able to function appropriately at home. Discharge planning will be discussing all the patient's available options with him later today in the presence of his family and . He was very happy to learn that his cardiac enzymes are negative and that his EKG showed no evidence of acute cardiac ischemia or injury. 07/30/2018: Renaldo became a little anxious this morning and developed significant dyspnea again. With the dyspnea he was tachycardic and had an increased rate of PVCs. He also developed more significant hypoxia and eventually he had BiPAP placed to relieve his hypoxia and dyspnea. This is become a fairly frequent occurrence with 2 or 3 episodes yesterday and then this more severe episode this morning requiring the use of BiPAP. After discussion with the patient we have agreed that I will consult Dr. Grove for pulmonary evaluation. Additionally his blood pressure has been gradually increasing throughout his hospital course and he has been significantly tachycardic. His BNP was somewhat elevated on admission but when adjusted for age it was not significant. On exam he does have some basilar crackles however these seem too coarse for what would be expected in congestive failure. I will treat the patient's hypertension with lisinopril and metoprolol succinate. I will await Dr. Grove's evaluation and recommendations for further treatment of the patient's COPD and chronic hypoxic respiratory failure. Reason For Visit: CHEST PAIN, ACUTE EXACERBATION OF COPD Physical Exam Vital Signs: Temp Pulse Resp BP Pulse Ox 97.7 F 108 H 30 H 153/97 H 97 07/30/18 07:47 07/30/18 07:47 07/30/18 07:47 07/30/18 07:47 07/30/18 07:47 Intake & Output 07/28/18 07/29/18 07/30/18 23:59 23:59 23:59 Intake Total 700 Output Total 20 Balance 680 Weight 83.2 kg 84.7 kg General appearance: PRESENT: cooperative, mild distress - Tachypnea and anxious , other - On BiPAP at the time of my evaluation Head exam: PRESENT: atraumatic, normocephalic Eye exam: PRESENT: conjunctiva pink, EOMI Ear exam: PRESENT: normal external ear exam. ABSENT: bleeding, drainage Mouth exam: PRESENT: neck supple, tongue midline Neck exam: ABSENT: thyromegaly, tracheal deviation Respiratory exam: PRESENT: decreased breath sounds - Breath sounds are generally decreased throughout the chest., rales - Coarse rales noted in the right lung but sound more like mucus in the airways, rhonchi - Central rhonchi are noted, symmetrical. ABSENT: accessory muscle use, prolonged expiratory phas , retraction, stridor, wheezes Cardiovascular exam: PRESENT: RRR - With frequent irregular beats, tachycardia. ABSENT: clicks, diastolic murmur, gallop, rubs, systolic murmur Vascular exam: PRESENT: normal capillary refill. ABSENT: pallor GI/Abdominal exam: PRESENT: normal bowel sounds, soft Rectal exam: PRESENT: deferred Extremities exam: ABSENT: joint swelling, pedal edema Musculoskeletal exam: PRESENT: normal inspection. ABSENT: deformity, dislocation, tenderness Neurological exam: PRESENT: alert, oriented to person, oriented to place, oriented to time, oriented to situation, CN II-XII grossly intact. ABSENT: motor sensory deficit Psychiatric exam: PRESENT: anxious, normal mood Skin exam: PRESENT: dry, intact, warm Results Laboratory Results: 07/30/18 04:17 07/30/18 04:17 07/30/18 07/30/18 04:17 04:17 WBC 11.6 H RBC 3.57 L Hgb 10.0 L Hct 30.5 L MCV 85 MCH 27.9 MCHC 32.7 RDW 15.5 H Plt Count 222 Seg Neutrophils % Not Reportable Lymphocytes % Not Reportable Monocytes % Not Reportable Eosinophils % Not Reportable Basophils % Not Reportable Absolute Neutrophils Not Reportable Absolute Lymphocytes Not Reportable Absolute Monocytes Not Reportable Absolute Eosinophils Not Reportable Absolute Basophils Not Reportable Sodium 140.1 Potassium 4.5 Chloride 96 L Carbon Dioxide 35 H Anion Gap 9 BUN 27 H Creatinine 0.66 Est GFR ( Amer) > 60 Est GFR (Non-Af Amer) > 60 Glucose 89 Calcium 8.9 Magnesium 1.8 07/28/18 07/28/18 07/29/18 23:10 23:10 04:56 Creatine Kinase 88 CK-MB (CK-2) 2.93 3.00 Troponin I 0.047 0.048 NT-Pro-B Natriuret Pep 1420 H 07/29/18 04:56 Creatine Kinase 92 CK-MB (CK-2) Troponin I NT-Pro-B Natriuret Pep Impressions: Chest X-Ray 07/28/18 11:10 IMPRESSION: 1. Cardiomegaly with small bilateral pleural effusions and/or pleural thickening. There is no focal airspace opacity or evidence of overt pulmonary edema in AP projection. 2. Calcified bilateral hilar and mediastinal lymph nodes, similar appearance to prior examination and in keeping with stigmata of prior granulomatous infection or pulmonary sarcoidosis. Correlate with clinical history. Assessment & Plan - Diagnosis (1) COPD exacerbation Is this a current diagnosis for this admission?: Yes Plan: Patient will be treated with an aggressive pulmonary toilet utilizing Xopenex, Atrovent, Pulmicort and albuterol nebulizers as well as intravenous steroids and supplemental oxygen. This will be performed with daily or more frequent serial evaluations and daily laboratory assessments including CBC and a metabolic profile. 07/29/2018: Since respiratory status is improved from admission. His wheezes are significantly diminished and his air movement is significantly improved. He is also doing well on supplemental oxygen at a level lower than he normally uses at home. We will continue with his current treatment to support his ongoing pulmonary wellness. 07/30/2018: Patient's respiratory status though significantly improved when he is not having episodes is problematic given that he has episodes of dyspnea which seem to occur in relationship to anxiety or frustration with his inability to perform some physical activity that he is attempting. Once he becomes anxious he seems to increase his respiratory rate (hyperventilate) and then feels dyspneic which causes further increase in his respiratory rate and further increase in his sensation of feeling dyspneic when he becomes significantly tachypneic his oxygen saturation actually goes down as he is not able to move enough air at rapid respiratory rates to provide adequate oxygenation. He was placed on BiPAP this morning with good resolution of his acute on chronic respiratory failure with hypoxia. Dr. Grove will be consulted for pulmonary evaluation. (2) Chronic respiratory failure Qualifiers: Respiratory failure complication: hypoxia Qualified Code(s): J96.11 - Chronic respiratory failure with hypoxia Is this a current diagnosis for this admission?: Yes Plan: Patient has chronic hypoxic respiratory failure which is not significantly exacerbated at this time. He is well maintained at his usual oxygen saturation of 90-94 with the 3 L/min oxygen via nasal cannula. Patient will be continued on his supplemental oxygen with additional oxygen or early support is required. 07/29/2018: Patient continues to do reasonably well with his tolerance of a slightly lower oxygen flow than his baseline at home. His O2 sats have maintained between 90 and 94% on 3 L per nasal cannula. He does develop some dyspnea and respiratory distress with anxiety and excessive activity. When this occurs he becomes fatigued very quickly and has a difficult time motivating himself to engage in any physical activity or participate in discussions with his family. Again it would appear that the patient has essentially a good baseline but needs to have significant reconditioning to improve his endurance for activities. 07/30/2018: Patient has developed several episodes of acute dyspnea and respiratory distress with anxiety. During these episodes he becomes tachycardic and tachypneic and is noted to have increased frequency of PVCs on his awake overnight monitor. Dr. Grove has been consulted for a pulmonary evaluation and the patient has been placed on BiPAP this morning due to hypoxia not resolving with nasal cannula oxygen and respiratory coaching by his very excellent and very dedicated nurse. (3) HTN (hypertension) Qualifiers: Hypertension type: essential hypertension Qualified Code(s): I10 - Essential (primary) hypertension Is this a current diagnosis for this admission?: Yes Plan: 07/30/2018: Patient's blood pressures been noted to be gradually coming more elevated during his hospital course. He does have a history of hypertension according to his records and with his tachypnea and tachycardia and frequent PVCs it is perfectly reasonable to start the patient on metoprolol succinate 50 mg p.o. daily and lisinopril 10 mg p.o. daily for control of his hypertension with the added potential benefit of controlling his tachycardia and PVCs. (4) Physical deconditioning Is this a current diagnosis for this admission?: Yes Plan: Patient has significant physical deconditioning and will require physical therapy. It is possible this patient will need to be placed in a senior care facility for therapy prior to be returned to his home as it appears he was probably not well conditioned after his most recent hospitalization and never really recovered his full strength. This is the opinion of his and it appears to be well founded. 07/29/2018: I have asked discharge planning to evaluate the patient for a variety of post discharge options. This would include home health with physical therapy, senior care facilities, acute rehabilitation hospitals, and a palliative care program for which he qualifies. I have discussed this with the patient and his family and they will be interested in discussing things with the discharge planning services. I informed patient that his reasons for admission have essentially been resolved and I do not have a good reason to keep him hospitalized beyond 07/30 or 07/31 and as such I have encouraged him to make a decision regarding his disposition. He expresses to me that the decision will be whenever his decides. (5) Chest pain Qualifiers: Chest pain type: other chest pain Qualified Code(s): R07.89 - Other chest pain; R07.8 - Other chest pain Is this a current diagnosis for this admission?: Yes Plan: Patient will have serial cardiac enzyme determinations as well as serial EKGs performed to assess the possibility of myocardial injury or ischemia. He will be observed on telemetry monitoring. 07/29/2018: Patient's cardiac enzymes and serial EKG showed no evidence of acute cardiac ischemia or injury. threat monitoring analyst showed no aberrant arrhythmias. No further evaluation for patient's cardiac status will be undertaken at this time. (6) Elevated troponin Is this a current diagnosis for this admission?: Yes Plan: Patient's troponin on today's visit is elevated from his previous baseline about a month ago. Level was approximately 0.05 but does not appear to be significantly deviating over time from that level. Further troponin levels will be obtained and reassessment will be done with more information. 07/29/2018: Patient's troponins were measured every 6 hours x3 and have been essentially unchanged throughout the series. No further evaluation will be performed. - Time Time Spent with patient: Less than 15 minutes Medications reviewed and adjusted accordingly: Yes
[2018-07-30 09:39] LABS: ARTERIAL BLOOD BASE EXCESS 5.8 mmol/L; ARTERIAL BLOOD H2CO3 2.46 mmol/L (1.05-1.35); ARTERIAL BLOOD HCO3 35.5 mmol/L (20-24); ARTERIAL BLOOD O2 SATURATION 95.4 % (94-98); ARTERIAL BLOOD PH 7.26 (7.35-7.45); ARTERIAL BLOOD PO2 91.6 mmHg (80-100)
[2018-07-30 09:40] LABS: ARTERIAL BLOOD FIO2 5L
[2018-07-30 09:42] LABS: ARTERIAL BLOOD PCO2 81.6 mmHg (35-45)
[2018-07-30] MEDS: GUAIFENESIN 600 MG TABLET.SA PO SCH ×2 (10:59→21:48)
[2018-07-30] MEDS: DOCUSATE SODIUM 100 MG CAPSULE PO SCH ×2 (10:59→17:20)
[2018-07-30] MEDS: LISINOPRIL 10 MG TABLET PO SCH (10:59)
[2018-07-30] MEDS: FINASTERIDE 5 MG TABLET PO SCH (10:59)
[2018-07-30] MEDS: ASPIRIN 81 MG TABLET, ENT COATED PO SCH (10:59)
[2018-07-30] MEDS: METOPROLOL SUCCINATE 50 MG TAB.SR.24H PO SCH (10:59)
[2018-07-30 11:07] LABS: ARTERIAL BLOOD BASE EXCESS 6.1 mmol/L; ARTERIAL BLOOD H2CO3 1.92 mmol/L (1.05-1.35); ARTERIAL BLOOD HCO3 34.1 mmol/L (20-24); ARTERIAL BLOOD O2 SATURATION 98.1 % (94-98); ARTERIAL BLOOD PCO2 63.8 mmHg (35-45); ARTERIAL BLOOD PH 7.35 (7.35-7.45); ARTERIAL BLOOD PO2 121.5 mmHg (80-100); ARTERIAL BLOOD TOTAL CO2 36.1 mmol/L (23-27)
[2018-07-30 11:09] LABS: ARTERIAL BLOOD FIO2 40%
[2018-07-30] MEDS: ALBUTEROL SULFATE 0.083% NEB 2.5 MG/3 ML AMPUL NEB PRN (19:50)
[2018-07-30] MEDS: TAMSULOSIN HCL 0.4 MG CAP.SR.24H PO SCH (21:48)
[2018-07-31] MEDS: HEPARIN SOD (PORCINE) 5,000 UNIT/ML 1 ML SYRINGE SUBCUT SCH ×3 (06:00→21:12)
[2018-07-31] MEDS: LANSOPRAZOLE 15 MG TAB.RAP.DR PO SCH ×2 (06:00→17:47)
[2018-07-31 06:35] LABS: ABSOLUTE LYMPHOCYTES (AUTO) 0.5 10^3/uL (0.5-4.7); ABSOLUTE MONOCYTES (AUTO) 1.1 10^3/uL (0.1-1.4); BASOPHILS % (AUTO) 0.1 % (0-2); EOSINOPHILS % (AUTO) 0.6 % (0-6); HEMATOCRIT 29.3 % (37.9-51.0); HEMOGLOBIN 9.6 g/dL (13.5-17.0); LYMPHOCYTES % (AUTO) 6.9 % (13-45); MEAN CORPUSCULAR HEMOGLOBIN 28.2 pg (27.0-33.4); MEAN CORPUSCULAR HGB CONC 32.9 g/dL (32.0-36.0); MEAN CORPUSCULAR VOLUME 86 fl (80-97); PLATELET COUNT 220 10^3/uL (150-450); RED BLOOD COUNT 3.42 10^6/uL (4.35-5.55); RED CELL DISTRIBUTION WIDTH 15.8 % (11.5-14.0); SEGMENTED NEUTROPHILS % (AUTO) 78.4 % (42-78); TOTAL CELLS COUNTED % (AUTO) 100 %; WHITE BLOOD COUNT 7.6 10^3/uL (4.0-10.5)
[2018-07-31 07:10] LABS: ANION GAP 7 (5-19); BLOOD UREA NITROGEN 31 mg/dL (7-20); CALCIUM 8.6 mg/dL (8.4-10.2); CARBON DIOXIDE 37 mmol/L (22-30); CHLORIDE 94 mmol/L (98-107); GLUCOSE 86 mg/dL (75-110); SODIUM 138.3 mmol/L (137-145)
[2018-07-31] MEDS: BUDESONIDE NEB 0.5 MG/2 ML AMPUL NEB SCH ×2 (08:17→19:48)
[2018-07-31] MEDS: LEVALBUTEROL HCL NEB 1.25 MG/3 ML AMPUL NEB SCH ×2 (08:17→15:29)
[2018-07-31] MEDS: IPRATROPIUM BROMIDE 0.02% NEB 0.5 MG/2.5 ML AMPUL NEB SCH ×2 (08:17→15:29)
[2018-07-31 09:05] LABS: ABSOLUTE LYMPHOCYTES (AUTO) 0.5 10^3/uL (0.5-4.7); ABSOLUTE MONOCYTES (AUTO) 0.8 10^3/uL (0.1-1.4); ABSOLUTE NEUT (AUTO) 6.2 10^3/uL (1.7-8.2); BASOPHILS % (AUTO) 0.1 % (0-2); EOSINOPHILS % (AUTO) 0.4 % (0-6); HEMATOCRIT 30.2 % (37.9-51.0); HEMOGLOBIN 9.9 g/dL (13.5-17.0); MEAN CORPUSCULAR HEMOGLOBIN 27.9 pg (27.0-33.4); MEAN CORPUSCULAR HGB CONC 32.7 g/dL (32.0-36.0); MEAN CORPUSCULAR VOLUME 85 fl (80-97); MONOCYTES % (AUTO) 10.8 % (3-13); PLATELET COUNT 228 10^3/uL (150-450); RED BLOOD COUNT 3.54 10^6/uL (4.35-5.55); RED CELL DISTRIBUTION WIDTH 15.8 % (11.5-14.0); SEGMENTED NEUTROPHILS % (AUTO) 81.7 % (42-78); TOTAL CELLS COUNTED % (AUTO) 100 %; WHITE BLOOD COUNT 7.6 10^3/uL (4.0-10.5)
[2018-07-31] MEDS: ASPIRIN 81 MG TABLET, ENT COATED PO SCH (09:13)
[2018-07-31] MEDS: DOCUSATE SODIUM 100 MG CAPSULE PO SCH ×2 (09:13→17:47)
[2018-07-31] MEDS: GUAIFENESIN 600 MG TABLET.SA PO SCH ×2 (09:13→21:06)
[2018-07-31] MEDS: METOPROLOL SUCCINATE 50 MG TAB.SR.24H PO SCH (09:14)
[2018-07-31] MEDS: LISINOPRIL 10 MG TABLET PO SCH (09:14)
[2018-07-31] MEDS: FINASTERIDE 5 MG TABLET PO SCH (09:14)
[2018-07-31 09:15] LABS: ARTERIAL BLOOD H2CO3 2.04 mmol/L (1.05-1.35); ARTERIAL BLOOD HCO3 36.6 mmol/L (20-24); ARTERIAL BLOOD PCO2 67.8 mmHg (35-45); ARTERIAL BLOOD PH 7.35 (7.35-7.45); ARTERIAL BLOOD PO2 92.4 mmHg (80-100)
[2018-07-31 09:16] LABS: ARTERIAL BLOOD FIO2 3.5L; ARTERIAL BLOOD O2 SATURATION 96.4 % (94-98); ARTERIAL BLOOD TOTAL CO2 38.7 mmol/L (23-27)
[2018-07-31 09:24] LABS: ALANINE AMINOTRANSFERASE 57 U/L (21-72); ALKALINE PHOSPHATASE 107 U/L (38-126); ASPARTATE AMINO TRANSFERASE 60 U/L (17-59); BILIRUBIN,DIRECT 0.6 mg/dL (0.0-0.4); BILIRUBIN,TOTAL 1.3 mg/dL (0.2-1.3); BLOOD UREA NITROGEN 31 mg/dL (7-20); CALCIUM 8.6 mg/dL (8.4-10.2); CARBON DIOXIDE 39 mmol/L (22-30); CHLORIDE 95 mmol/L (98-107); GLUCOSE 140 mg/dL (75-110); POTASSIUM 4.1 mmol/L (3.6-5.0); TOTAL PROTEIN 5.8 g/dL (6.3-8.2)
[2018-07-31 09:29] LABS: SODIUM 138.3 mmol/L (137-145)
[2018-07-31 09:31] LABS: ANION GAP 4 (5-19)
[2018-07-31] MEDS: ACETYLCYSTEINE 20% SOLN 800 MG/4 ML VIAL.NEB NEB SCH ×2 (13:00→21:01)
--- NOTE | 2018-07-31 13:24 | PDOC PROGRESS REPORT ---
Subjective Progress Note for:: 07/31/18 Subjective:: RENALDO DAWSON is a 88 year old male who presented to the emergency room with a 3-week history of progressively worsening dyspnea which had shown significant acceleration over the last 7 days. His dyspnea is now severe and it gets worse with exertion and cough. He admits a harsh intermittent nonproductive cough without accompanying fever or chills. He originally denied having chest pain however his reminded him that he has been complaining of chest pain every day. He explains that it is "not that kind of chest pain", in that he is experiencing chest tightness associated with his dyspnea and cough. He does not feel that the chest pain is associated with his heart. He does however deny nausea, vomiting, abdominal pain, diarrhea, palpitations and syncope. His summoned EMS to bring him to the hospital because he was too weak and short of breath to get up at home. EMS treated the patient with oxygen as well as aspirin therapy and administered a intravenous dose of Solu- Medrol during the transport to the hospital. 07/29/2018: There is separate seems to be somewhat improved today with his dyspnea well- controlled while at rest and his cough resolving. He did develop significant dyspnea with agitation earlier when he had some difficulty using the urinal and wound up soiling himself. This caused him a great deal of embarrassment and he developed dyspnea with the anxiety and frustration of the moment. He has been tolerating a diet well and has not experienced any nausea or vomiting. He is willing to discuss a variety of rehabilitation options as he realizes that he needs to increase his overall strength and endurance in order to be able to function appropriately at home. Discharge planning will be discussing all the patient's available options with him later today in the presence of his family and . He was very happy to learn that his cardiac enzymes are negative and that his EKG showed no evidence of acute cardiac ischemia or injury. 07/30/2018: Renaldo became a little anxious this morning and developed significant dyspnea again. With the dyspnea he was tachycardic and had an increased rate of PVCs. He also developed more significant hypoxia and eventually he had BiPAP placed to relieve his hypoxia and dyspnea. This is become a fairly frequent occurrence with 2 or 3 episodes yesterday and then this more severe episode this morning requiring the use of BiPAP. After discussion with the patient we have agreed that I will consult Dr. Grove for pulmonary evaluation. Additionally his blood pressure has been gradually increasing throughout his hospital course and he has been significantly tachycardic. His BNP was somewhat elevated on admission but when adjusted for age it was not significant. On exam he does have some basilar crackles however these seem too coarse for what would be expected in congestive failure. I will treat the patient's hypertension with lisinopril and metoprolol succinate. I will await Dr. Grove's evaluation and recommendations for further treatment of the patient's COPD and chronic hypoxic respiratory failure. 07/31/2018: Renaldo has been doing well with BiPAP and he is beginning to have a cough productive of thick yellowish mucus at times. A sputum specimen will be obtained and submitted for laboratory evaluation culture and sensitivity. He has had less difficulty with hypoxia since starting on BiPAP and has been able to tolerate off BiPAP on 3-1/2 L of oxygen per nasal cannula for some periods of time however he eventually becomes tired or if he engages in any activity he rapidly decompensates and needs to go back on BiPAP immediately. Chest exam shows a few bibasilar fine rales or crackles much more prominent on the left posterior than the remainder of the chest exam. There are rare scattered rhonchi and no significant wheezing is noted although the patient is noted to be moving very little air in providing essentially no deep inspiratory effort. Renaldo states that he has been eating a little and has been drinking some fluids. He has noted some swelling in his feet. He has not had any difficulty with elimination. Reason For Visit: CHEST PAIN, ACUTE EXACERBATION OF COPD Physical Exam Vital Signs: Temp Pulse Resp BP Pulse Ox 98.4 F 53 L 20 90/61 L 94 07/31/18 11:14 07/31/18 11:14 07/31/18 11:14 07/31/18 11:14 07/31/18 11:14 Intake & Output 07/29/18 07/30/18 07/31/18 23:59 23:59 23:59 Intake Total 700 600 175 Output Total 20 150 600 Balance 680 450 -425 Weight 83.2 kg 84.7 kg 85.6 kg General appearance: PRESENT: no acute distress, cooperative, other - On BiPAP at 30% Head exam: PRESENT: atraumatic, normocephalic Eye exam: PRESENT: conjunctiva pink, EOMI Ear exam: PRESENT: normal external ear exam. ABSENT: bleeding Mouth exam: PRESENT: neck supple, tongue midline, other - BiPAP mask fits well Neck exam: ABSENT: thyromegaly, tracheal deviation Respiratory exam: PRESENT: decreased breath sounds - Decreased breath sounds in all [place], prolonged expiratory phas - Moderately prolonged, rales - Most prominent left posterior base, rhonchi - Rare scattered, symmetrical, unlabored - On BiPAP. ABSENT: wheezes Cardiovascular exam: PRESENT: RRR - With frequent irregular beats. ABSENT: clicks, gallop, rubs Vascular exam: PRESENT: normal capillary refill. ABSENT: pallor GI/Abdominal exam: PRESENT: normal bowel sounds, soft Rectal exam: PRESENT: deferred Extremities exam: PRESENT: pedal edema - Bilateral feet, +1 edema - Bilateral pretibial. ABSENT: joint swelling, tenderness Musculoskeletal exam: ABSENT: deformity, dislocation Neurological exam: PRESENT: alert, oriented to person, oriented to place, oriented to time, oriented to situation Psychiatric exam: PRESENT: appropriate affect, normal mood Skin exam: ABSENT: jaundice, rash, urticaria Results Laboratory Results: 07/31/18 08:55 07/31/18 08:55 07/31/18 07/31/18 07/31/18 05:22 05:22 08:55 WBC 7.6 7.6 RBC 3.42 L 3.54 L Hgb 9.6 L 9.9 L Hct 29.3 L 30.2 L MCV 86 85 MCH 28.2 27.9 MCHC 32.9 32.7 RDW 15.8 H 15.8 H Plt Count 220 228 Seg Neutrophils % 78.4 H 81.7 H Lymphocytes % 6.9 L 7.0 L Monocytes % 14.0 H 10.8 Eosinophils % 0.6 0.4 Basophils % 0.1 0.1 Absolute Neutrophils 6.0 6.2 Absolute Lymphocytes 0.5 0.5 Absolute Monocytes 1.1 0.8 Absolute Eosinophils 0.0 0.0 Absolute Basophils 0.0 0.0 Carbonic Acid HCO3/H2CO3 Ratio ABG pH ABG pCO2 ABG pO2 ABG HCO3 ABG O2 Saturation ABG Base Excess FiO2 Sodium 138.3 Potassium 4.0 Chloride 94 L Carbon Dioxide 37 H Anion Gap 7 BUN 31 H Creatinine 0.81 Est GFR ( Amer) > 60 Est GFR (Non-Af Amer) > 60 Glucose 86 Calcium 8.6 Magnesium 1.9 Total Bilirubin AST ALT Alkaline Phosphatase Total Protein Albumin 07/31/18 07/31/18 08:55 08:55 WBC RBC Hgb Hct MCV MCH MCHC RDW Plt Count Seg Neutrophils % Lymphocytes % Monocytes % Eosinophils % Basophils % Absolute Neutrophils Absolute Lymphocytes Absolute Monocytes Absolute Eosinophils Absolute Basophils Carbonic Acid 2.04 H HCO3/H2CO3 Ratio 17:1 ABG pH 7.35 ABG pCO2 67.8 H ABG pO2 92.4 ABG HCO3 36.6 H ABG O2 Saturation 96.4 ABG Base Excess 9.0 FiO2 3.5L Sodium 138.3 Potassium 4.1 Chloride 95 L Carbon Dioxide 39 H Anion Gap 4 L BUN 31 H Creatinine 0.85 Est GFR ( Amer) > 60 Est GFR (Non-Af Amer) > 60 Glucose 140 H Calcium 8.6 Magnesium Total Bilirubin 1.3 AST 60 H ALT 57 Alkaline Phosphatase 107 Total Protein 5.8 L Albumin 3.0 L 07/28/18 07/28/18 07/29/18 23:10 23:10 04:56 Creatine Kinase 88 CK-MB (CK-2) 2.93 3.00 Troponin I 0.047 0.048 NT-Pro-B Natriuret Pep 1420 H 07/29/18 04:56 Creatine Kinase 92 CK-MB (CK-2) Troponin I NT-Pro-B Natriuret Pep Impressions: Chest X-Ray 07/28/18 11:10 IMPRESSION: 1. Cardiomegaly with small bilateral pleural effusions and/or pleural thickening. There is no focal airspace opacity or evidence of overt pulmonary edema in AP projection. 2. Calcified bilateral hilar and mediastinal lymph nodes, similar appearance to prior examination and in keeping with stigmata of prior granulomatous infection or pulmonary sarcoidosis. Correlate with clinical history. Assessment & Plan - Diagnosis (1) COPD exacerbation Is this a current diagnosis for this admission?: Yes Plan: Patient will be treated with an aggressive pulmonary toilet utilizing Xopenex, Atrovent, Pulmicort and albuterol nebulizers as well as intravenous steroids and supplemental oxygen. This will be performed with daily or more frequent serial evaluations and daily laboratory assessments including CBC and a metabolic profile. 07/29/2018: Since respiratory status is improved from admission. His wheezes are significantly diminished and his air movement is significantly improved. He is also doing well on supplemental oxygen at a level lower than he normally uses at home. We will continue with his current treatment to support his ongoing pulmonary wellness. 07/30/2018: Patient's respiratory status though significantly improved when he is not having episodes is problematic given that he has episodes of dyspnea which seem to occur in relationship to anxiety or frustration with his inability to perform some physical activity that he is attempting. Once he becomes anxious he seems to increase his respiratory rate (hyperventilate) and then feels dyspneic which causes further increase in his respiratory rate and further increase in his sensation of feeling dyspneic when he becomes significantly tachypneic his oxygen saturation actually goes down as he is not able to move enough air at rapid respiratory rates to provide adequate oxygenation. He was placed on BiPAP this morning with good resolution of his acute on chronic respiratory failure with hypoxia. Dr. Grove will be consulted for pulmonary evaluation. 07/31/2018: Patient's respiratory status is fairly stable at the present time on BiPAP. We will continue with treatment and home therapy recommendations per Dr. Grove. I will order Mucomyst and the patient's breathing treatments and a sputum culture and sensitivity to be obtained. (2) Chronic respiratory failure Qualifiers: Respiratory failure complication: hypoxia Qualified Code(s): J96.11 - Chronic respiratory failure with hypoxia Is this a current diagnosis for this admission?: Yes Plan: Patient has chronic hypoxic respiratory failure which is not significantly exacerbated at this time. He is well maintained at his usual oxygen saturation of 90-94 with the 3 L/min oxygen via nasal cannula. Patient will be continued on his supplemental oxygen with additional oxygen or early support is required. 07/29/2018: Patient continues to do reasonably well with his tolerance of a slightly lower oxygen flow than his baseline at home. His O2 sats have maintained between 90 and 94% on 3 L per nasal cannula. He does develop some dyspnea and respiratory distress with anxiety and excessive activity. When this occurs he becomes fatigued very quickly and has a difficult time motivating himself to engage in any physical activity or participate in discussions with his family. Again it would appear that the patient has essentially a good baseline but needs to have significant reconditioning to improve his endurance for activities. 07/30/2018: Patient has developed several episodes of acute dyspnea and respiratory distress with anxiety. 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 Dr. Grove has been consulted for a pulmonary evaluation and the patient has been placed on BiPAP this morning due to hypoxia not resolving with nasal cannula oxygen and respiratory coaching by his very excellent and very dedicated nurse. 07/31/2018: Dr. Grove will assist in his long-term management and I will follow his recommendations for home treatment. (3) HTN (hypertension) Qualifiers: Hypertension type: essential hypertension Qualified Code(s): I10 - Essential (primary) hypertension Is this a current diagnosis for this admission?: Yes Plan: 07/30/2018: Patient's blood pressures been noted to be gradually coming more elevated during his hospital course. He does have a history of hypertension according to his records and with his tachypnea and tachycardia and frequent PVCs it is perfectly reasonable to start the patient on metoprolol succinate 50 mg p.o. daily and lisinopril 10 mg p.o. daily for control of his hypertension with the added potential benefit of controlling his tachycardia and PVCs. 07/31/2018: Patient's blood pressure has become very well controlled and his heart rate has normalized with the therapy initiated yesterday. Therapy will be continued at its current level dosage during this hospitalization and this will be prescribed for him upon discharge. (4) Physical deconditioning Is this a current diagnosis for this admission?: Yes Plan: Patient has significant physical deconditioning and will require physical therapy. It is possible this patient will need to be placed in a senior living facility for therapy prior to be returned to his home as it appears he was probably not well conditioned after his most recent hospitalization and never really recovered his full strength. This is the opinion of his and it appears to be well founded. 07/29/2018: I have asked discharge planning to evaluate the patient for a variety of post discharge options. This would include home health with physical therapy, senior living facilities, acute rehabilitation hospitals, and a palliative care program for which he qualifies. I have discussed this with the patient and his family and they will be interested in discussing things with the discharge planning services. I informed patient that his reasons for admission have essentially been resolved and I do not have a good reason to keep him hospitalized beyond 07/30 or 07/31 and as such I have encouraged him to make a decision regarding his disposition. He expresses to me that the decision will be whenever his decides. (5) Chest pain Qualifiers: Chest pain type: other chest pain Qualified Code(s): R07.89 - Other chest pain; R07.8 - Other chest pain Is this a current diagnosis for this admission?: Yes Plan: Patient will have serial cardiac enzyme determinations as well as serial EKGs performed to assess the possibility of myocardial injury or ischemia. He will be observed on telemetry monitoring. 07/29/2018: Patient's cardiac enzymes and serial EKG showed no evidence of acute cardiac ischemia or injury. manuscript reader showed no aberrant arrhythmias. No further evaluation for patient's cardiac status will be undertaken at this time. (6) Elevated troponin Is this a current diagnosis for this admission?: Yes Plan: Patient's troponin on today's visit is elevated from his previous baseline about a month ago. Level was approximately 0.05 but does not appear to be significantly deviating over time from that level. Further troponin levels will be obtained and reassessment will be done with more information. 07/29/2018: Patient's troponins were measured every 6 hours x3 and have been essentially unchanged throughout the series. No further evaluation will be performed. - Time Time Spent with patient: Less than 15 minutes Medications reviewed and adjusted accordingly: Yes
[2018-07-31] MEDS: ALBUTEROL SULFATE 0.083% NEB 2.5 MG/3 ML AMPUL NEB PRN (19:48)
[2018-07-31] MEDS: TAMSULOSIN HCL 0.4 MG CAP.SR.24H PO SCH (21:06)
[2018-08-01] MEDS: LEVALBUTEROL HCL NEB 1.25 MG/3 ML AMPUL NEB SCH ×3 (00:23→16:26)
[2018-08-01] MEDS: IPRATROPIUM BROMIDE 0.02% NEB 0.5 MG/2.5 ML AMPUL NEB SCH ×3 (00:23→16:26)
[2018-08-01 05:29] LABS: HEMATOCRIT 28.2 % (37.9-51.0); HEMOGLOBIN 9.4 g/dL (13.5-17.0); MEAN CORPUSCULAR HEMOGLOBIN 28.1 pg (27.0-33.4); MEAN CORPUSCULAR HGB CONC 33.4 g/dL (32.0-36.0); MEAN CORPUSCULAR VOLUME 84 fl (80-97); PLATELET COUNT 210 10^3/uL (150-450); RED BLOOD COUNT 3.35 10^6/uL (4.35-5.55); RED CELL DISTRIBUTION WIDTH 15.5 % (11.5-14.0); WHITE BLOOD COUNT 6.4 10^3/uL (4.0-10.5)
[2018-08-01 05:53] LABS: ANION GAP 8 (5-19); BLOOD UREA NITROGEN 28 mg/dL (7-20); CALCIUM 8.2 mg/dL (8.4-10.2); CARBON DIOXIDE 34 mmol/L (22-30); CHLORIDE 95 mmol/L (98-107); GLUCOSE 131 mg/dL (75-110); POTASSIUM 4.1 mmol/L (3.6-5.0); SODIUM 136.9 mmol/L (137-145)
[2018-08-01] MEDS: LANSOPRAZOLE 15 MG TAB.RAP.DR PO SCH ×2 (06:24→18:22)
[2018-08-01] MEDS: HEPARIN SOD (PORCINE) 5,000 UNIT/ML 1 ML SYRINGE SUBCUT SCH ×3 (06:25→21:33)
[2018-08-01 06:31] LABS: ARTERIAL BLOOD BASE EXCESS 10.4 mmol/L; ARTERIAL BLOOD HCO3 36.3 mmol/L (20-24); ARTERIAL BLOOD O2 SATURATION 98.9 % (94-98); ARTERIAL BLOOD PCO2 56.4 mmHg (35-45); ARTERIAL BLOOD PH 7.43 (7.35-7.45); ARTERIAL BLOOD TOTAL CO2 38.1 mmol/L (23-27)
[2018-08-01 06:33] LABS: ARTERIAL BLOOD FIO2 30%
[2018-08-01] MEDS: ACETYLCYSTEINE 20% SOLN 800 MG/4 ML VIAL.NEB NEB SCH ×2 (08:05→19:52)
[2018-08-01] MEDS: BUDESONIDE NEB 0.5 MG/2 ML AMPUL NEB SCH ×2 (08:05→19:52)
[2018-08-01] MEDS: DOCUSATE SODIUM 100 MG CAPSULE PO SCH ×2 (10:44→18:21)
[2018-08-01] MEDS: LISINOPRIL 10 MG TABLET PO SCH (10:45)
[2018-08-01] MEDS: GUAIFENESIN 600 MG TABLET.SA PO SCH ×2 (10:45→21:33)
[2018-08-01] MEDS: METOPROLOL SUCCINATE 50 MG TAB.SR.24H PO SCH (10:45)
[2018-08-01] MEDS: ASPIRIN 81 MG TABLET, ENT COATED PO SCH (10:45)
[2018-08-01] MEDS: FINASTERIDE 5 MG TABLET PO SCH (10:45)
--- NOTE | 2018-08-01 16:37 | PDOC PROGRESS REPORT ---
Subjective Progress Note for:: 08/01/18 Subjective:: RENALDO DAWSON is a 88 year old male who presented to the emergency room with a 3-week history of progressively worsening dyspnea which had shown significant acceleration over the last 7 days. His dyspnea is now severe and it gets worse with exertion and cough. He admits a harsh intermittent nonproductive cough without accompanying fever or chills. He originally denied having chest pain however his reminded him that he has been complaining of chest pain every day. He explains that it is "not that kind of chest pain", in that he is experiencing chest tightness associated with his dyspnea and cough. He does not feel that the chest pain is associated with his heart. He does however deny nausea, vomiting, abdominal pain, diarrhea, palpitations and syncope. His summoned EMS to bring him to the hospital because he was too weak and short of breath to get up at home. EMS treated the patient with oxygen as well as aspirin therapy and administered a intravenous dose of Solu- Medrol during the transport to the hospital. 07/29/2018: There is separate seems to be somewhat improved today with his dyspnea well- controlled while at rest and his cough resolving. He did develop significant dyspnea with agitation earlier when he had some difficulty using the urinal and wound up soiling himself. This caused him a great deal of embarrassment and he developed dyspnea with the anxiety and frustration of the moment. He has been tolerating a diet well and has not experienced any nausea or vomiting. He is willing to discuss a variety of rehabilitation options as he realizes that he needs to increase his overall strength and endurance in order to be able to function appropriately at home. Discharge planning will be discussing all the patient's available options with him later today in the presence of his family and . He was very happy to learn that his cardiac enzymes are negative and that his EKG showed no evidence of acute cardiac ischemia or injury. 07/30/2018: Renaldo became a little anxious this morning and developed significant dyspnea again. With the dyspnea he was tachycardic and had an increased rate of PVCs. He also developed more significant hypoxia and eventually he had BiPAP placed to relieve his hypoxia and dyspnea. This is become a fairly frequent occurrence with 2 or 3 episodes yesterday and then this more severe episode this morning requiring the use of BiPAP. After discussion with the patient we have agreed that I will consult Dr. Grove for pulmonary evaluation. Additionally his blood pressure has been gradually increasing throughout his hospital course and he has been significantly tachycardic. His BNP was somewhat elevated on admission but when adjusted for age it was not significant. On exam he does have some basilar crackles however these seem too coarse for what would be expected in congestive failure. I will treat the patient's hypertension with lisinopril and metoprolol succinate. I will await Dr. Grove's evaluation and recommendations for further treatment of the patient's COPD and chronic hypoxic respiratory failure. 07/31/2018: Renaldo has been doing well with BiPAP and he is beginning to have a cough productive of thick yellowish mucus at times. A sputum specimen will be obtained and submitted for laboratory evaluation culture and sensitivity. He has had less difficulty with hypoxia since starting on BiPAP and has been able to tolerate off BiPAP on 3-1/2 L of oxygen per nasal cannula for some periods of time however he eventually becomes tired or if he engages in any activity he rapidly decompensates and needs to go back on BiPAP immediately. Chest exam shows a few bibasilar fine rales or crackles much more prominent on the left posterior than the remainder of the chest exam. There are rare scattered rhonchi and no significant wheezing is noted although the patient is noted to be moving very little air in providing essentially no deep inspiratory effort. Renaldo states that he has been eating a little and has been drinking some fluids. He has noted some swelling in his feet. He has not had any difficulty with elimination. 08/01/2018: Patient continues to rely on BiPAP virtually all the time for his respiratory comfort. He continues to have some cough but this appears to be resolving slowly. He becomes very hypoxic when he tries to do any activity while on nasal cannula oxygen supplementation only as even the slightest minor activities while seated result in dyspnea and require a return to BiPAP respiratory support. He and his are concerned that this represents a significant decrease in his pulmonary capacity. I discussed with him the fact that he does have end-stage COPD and that with his recent pneumonia he has not ever sufficiently recovered. We discussed the possibility of entering a palliative care program we also discussed briefly hospice care. They have some interest in palliative care and are also very interested in the opinion of Dr. Grove as to what he would require for treatment at home or in a group home facility because his does not feel that she could manage his treatment needs at home if he requires BiPAP. After a long discussion we agreed that discharge planning and palliative care will revisit them for further discussions. Dr. Grove will no doubt make his recommendations for ongoing care in the post hospital phase of this stay. Reason For Visit: CHEST PAIN, ACUTE EXACERBATION OF COPD Physical Exam Vital Signs: Temp Pulse Resp BP Pulse Ox 97.6 F 68 22 H 105/50 L 100 08/01/18 11:48 08/01/18 11:48 08/01/18 13:44 08/01/18 11:48 08/01/18 11:48 Intake & Output 07/30/18 07/31/18 08/01/18 23:59 23:59 23:59 Intake Total 420 426 6027 Output Total 150 775 475 Balance 450 -175 593 Weight 84.7 kg 85.6 kg 89.1 kg General appearance: PRESENT: no acute distress, cooperative Head exam: PRESENT: atraumatic, normocephalic Eye exam: PRESENT: conjunctiva pink. ABSENT: scleral icterus Ear exam: PRESENT: normal external ear exam. ABSENT: bleeding Mouth exam: PRESENT: neck supple, other - Oral mucosa moist no gross pathological lesions noted Neck exam: ABSENT: thyromegaly, tracheal deviation Respiratory exam: PRESENT: symmetrical, unlabored, other - On BiPAP Cardiovascular exam: PRESENT: RRR, other - Frequent premature irregular beats are noted. Vascular exam: PRESENT: normal capillary refill. ABSENT: pallor GI/Abdominal exam: PRESENT: normal bowel sounds, soft Rectal exam: PRESENT: deferred Extremities exam: ABSENT: joint swelling, pedal edema Musculoskeletal exam: ABSENT: deformity, dislocation Neurological exam: PRESENT: alert, oriented to person, oriented to place, oriented to time, oriented to situation Psychiatric exam: PRESENT: appropriate affect, normal mood Skin exam: PRESENT: dry, intact, warm. ABSENT: jaundice, rash, urticaria Results Laboratory Results: 08/01/18 05:22 08/01/18 05:22 08/01/18 08/01/18 08/01/18 05:22 05:22 06:22 WBC 6.4 RBC 3.35 L Hgb 9.4 L Hct 28.2 L MCV 84 MCH 28.1 MCHC 33.4 RDW 15.5 H Plt Count 210 Carbonic Acid 1.70 H HCO3/H2CO3 Ratio 21:1 ABG pH 7.43 ABG pCO2 56.4 H ABG pO2 150.0 H ABG HCO3 36.3 H ABG O2 Saturation 98.9 H ABG Base Excess 10.4 FiO2 30% Sodium 136.9 L Potassium 4.1 Chloride 95 L Carbon Dioxide 34 H Anion Gap 8 BUN 28 H Creatinine 0.79 Est GFR ( Amer) > 60 Est GFR (Non-Af Amer) > 60 Glucose 131 H Calcium 8.2 L Magnesium 1.8 07/28/18 07/28/18 07/29/18 23:10 23:10 04:56 Creatine Kinase 88 CK-MB (CK-2) 2.93 3.00 Troponin I 0.047 0.048 NT-Pro-B Natriuret Pep 1420 H 07/29/18 04:56 Creatine Kinase 92 CK-MB (CK-2) Troponin I NT-Pro-B Natriuret Pep Impressions: Chest X-Ray 07/28/18 11:10 IMPRESSION: 1. Cardiomegaly with small bilateral pleural effusions and/or pleural thickening. There is no focal airspace opacity or evidence of overt pulmonary edema in AP projection. 2. Calcified bilateral hilar and mediastinal lymph nodes, similar appearance to prior examination and in keeping with stigmata of prior granulomatous infection or pulmonary sarcoidosis. Correlate with clinical history. Assessment & Plan - Diagnosis (1) COPD exacerbation Is this a current diagnosis for this admission?: Yes Plan: Patient will be treated with an aggressive pulmonary toilet utilizing Xopenex, Atrovent, Pulmicort and albuterol nebulizers as well as intravenous steroids and supplemental oxygen. This will be performed with daily or more frequent serial evaluations and daily laboratory assessments including CBC and a metabolic profile. 07/29/2018: Since respiratory status is improved from admission. His wheezes are significantly diminished and his air movement is significantly improved. He is also doing well on supplemental oxygen at a level lower than he normally uses at home. We will continue with his current treatment to support his ongoing pulmonary wellness. 07/30/2018: Patient's respiratory status though significantly improved when he is not having episodes is problematic given that he has episodes of dyspnea which seem to occur in relationship to anxiety or frustration with his inability to perform some physical activity that he is attempting. Once he becomes anxious he seems to increase his respiratory rate (hyperventilate) and then feels dyspneic which causes further increase in his respiratory rate and further increase in his sensation of feeling dyspneic when he becomes significantly tachypneic his oxygen saturation actually goes down as he is not able to move enough air at rapid respiratory rates to provide adequate oxygenation. He was placed on BiPAP this morning with good resolution of his acute on chronic respiratory failure with hypoxia. Dr. Grove will be consulted for pulmonary evaluation. 07/31/2018: Patient's respiratory status is fairly stable at the present time on BiPAP. We will continue with treatment and home therapy recommendations per Dr. Grove. I will order Mucomyst and the patient's breathing treatments and a sputum culture and sensitivity to be obtained. 08/01/2018: Patient will be continued on his current regiment with BiPAP settings as recommended by Dr. Grove. He will continue on his present pulmonary toilet and other therapies unless changed by Dr. Grove. Palliative care and discharge planning will meet with the patient and his family to discuss posthospitalization plans. (2) Chronic respiratory failure Qualifiers: Respiratory failure complication: hypoxia Qualified Code(s): J96.11 - Chronic respiratory failure with hypoxia Is this a current diagnosis for this admission?: Yes Plan: Patient has chronic hypoxic respiratory failure which is not significantly exacerbated at this time. He is well maintained at his usual oxygen saturation of 90-94 with the 3 L/min oxygen via nasal cannula. Patient will be continued on his supplemental oxygen with additional oxygen or early support is required. 07/29/2018: Patient continues to do reasonably well with his tolerance of a slightly lower oxygen flow than his baseline at home. His O2 sats have maintained between 90 and 94% on 3 L per nasal cannula. He does develop some dyspnea and respiratory distress with anxiety and excessive activity. When this occurs he becomes fatigued very quickly and has a difficult time motivating himself to engage in any physical activity or participate in discussions with his family. Again it would appear that the patient has essentially a good baseline but needs to have significant reconditioning to improve his endurance for activities. 07/30/2018: Patient has developed several episodes of acute dyspnea and respiratory distress with anxiety. During these episodes he becomes tachycardic and tachypneic and is noted to have increased frequency of PVCs on his bus monitor. Dr. Grove has been consulted for a pulmonary evaluation and the patient has been placed on BiPAP this morning due to hypoxia not resolving with nasal cannula oxygen and respiratory coaching by his very excellent and very dedicated nurse. 07/31/2018: Dr. Grove will assist in his long-term management and I will follow his recommendations for home treatment. 08/01/2018: We will continue with Dr. Grove's treatment utilizing BiPAP and respiratory medications/pulmonary toilet. Because of the patient's worsening respiratory failure he qualifies for palliative care and he and his family are willing to meet with palliative care to discuss this possibility. Dr. Grove's recommendations along these lines for post hospital care or treatment are most appreciated by myself and the patient's family as well as the discharge planning team. (3) HTN (hypertension) Qualifiers: Hypertension type: essential hypertension Qualified Code(s): I10 - Essential (primary) hypertension Is this a current diagnosis for this admission?: Yes Plan: 07/30/2018: Patient's blood pressures been noted to be gradually coming more elevated during his hospital course. He does have a history of hypertension according to his records and with his tachypnea and tachycardia and frequent PVCs it is perfectly reasonable to start the patient on metoprolol succinate 50 mg p.o. daily and lisinopril 10 mg p.o. daily for control of his hypertension with the added potential benefit of controlling his tachycardia and PVCs. 07/31/2018: Patient's blood pressure has become very well controlled and his heart rate has normalized with the therapy initiated yesterday. Therapy will be continued at its current level dosage during this hospitalization and this will be prescribed for him upon discharge. (4) Physical deconditioning Is this a current diagnosis for this admission?: Yes Plan: Patient has significant physical deconditioning and will require physical therapy. It is possible this patient will need to be placed in a group home facility for therapy prior to be returned to his home as it appears he was probably not well conditioned after his most recent hospitalization and never really recovered his full strength. This is the opinion of his and it appears to be well founded. 07/29/2018: I have asked discharge planning to evaluate the patient for a variety of post discharge options. This would include home health with physical therapy, group home facilities, acute rehabilitation hospitals, and a palliative care program for which he qualifies. I have discussed this with the patient and his family and they will be interested in discussing things with the discharge planning services. I informed patient that his reasons for admission have essentially been resolved and I do not have a good reason to keep him hospitalized beyond 07/30 or 07/31 and as such I have encouraged him to make a decision regarding his disposition. He expresses to me that the decision will be whenever his decides. 08/01/2018: Patient continues to have poor conditioning however due to his worsening respiratory failure and slow resolution of his COPD exacerbation he does not able to tolerate physical therapy. At this point the patient will continue his hospitalization and efforts at recovery. The patient his family are considering palliative care and Dr. Grove is managing his BiPAP therapy. If at some point in the future he is able to tolerate physical therapy the plan to initiate rehab will be entertained. (5) Chest pain Qualifiers: Chest pain type: other chest pain Qualified Code(s): R07.89 - Other chest pain; R07.8 - Other chest pain Is this a current diagnosis for this admission?: Yes Plan: Patient will have serial cardiac enzyme determinations as well as serial EKGs performed to assess the possibility of myocardial injury or ischemia. He will be observed on telemetry monitoring. 07/29/2018: Patient's cardiac enzymes and serial EKG showed no evidence of acute cardiac ischemia or injury. vehicle monitor technician showed no aberrant arrhythmias. No further evaluation for patient's cardiac status will be undertaken at this time. (6) Elevated troponin Is this a current diagnosis for this admission?: Yes Plan: Patient's troponin on today's visit is elevated from his previous baseline about a month ago. Level was approximately 0.05 but does not appear to be significantly deviating over time from that level. Further troponin levels will be obtained and reassessment will be done with more information. 07/29/2018: Patient's troponins were measured every 6 hours x3 and have been essentially unchanged throughout the series. No further evaluation will be performed. - Time Time Spent with patient: 15-24 minutes Medications reviewed and adjusted accordingly: No
[2018-08-01] MEDS: ALBUTEROL SULFATE 0.083% NEB 2.5 MG/3 ML AMPUL NEB PRN (19:52)
[2018-08-01] MEDS: TAMSULOSIN HCL 0.4 MG CAP.SR.24H PO SCH (21:33)
[2018-08-02] MEDS: IPRATROPIUM BROMIDE 0.02% NEB 0.5 MG/2.5 ML AMPUL NEB SCH ×3 (00:12→15:59)
[2018-08-02] MEDS: LEVALBUTEROL HCL NEB 1.25 MG/3 ML AMPUL NEB SCH ×3 (00:12→15:59)
[2018-08-02 05:14] LABS: HEMATOCRIT 27.7 % (37.9-51.0); HEMOGLOBIN 9.3 g/dL (13.5-17.0); MEAN CORPUSCULAR HEMOGLOBIN 28.4 pg (27.0-33.4); MEAN CORPUSCULAR HGB CONC 33.8 g/dL (32.0-36.0); MEAN CORPUSCULAR VOLUME 84 fl (80-97); PLATELET COUNT 202 10^3/uL (150-450); RED BLOOD COUNT 3.29 10^6/uL (4.35-5.55); RED CELL DISTRIBUTION WIDTH 15.6 % (11.5-14.0); WHITE BLOOD COUNT 6.7 10^3/uL (4.0-10.5)
[2018-08-02 05:39] LABS: ANION GAP 10 (5-19); BLOOD UREA NITROGEN 22 mg/dL (7-20); CALCIUM 8.1 mg/dL (8.4-10.2); CARBON DIOXIDE 33 mmol/L (22-30); CHLORIDE 95 mmol/L (98-107); GLUCOSE 110 mg/dL (75-110); POTASSIUM 4.1 mmol/L (3.6-5.0); SODIUM 138.1 mmol/L (137-145)
[2018-08-02] MEDS: LANSOPRAZOLE 15 MG TAB.RAP.DR PO SCH ×2 (05:39→17:01)
[2018-08-02] MEDS: HEPARIN SOD (PORCINE) 5,000 UNIT/ML 1 ML SYRINGE SUBCUT SCH ×3 (05:40→21:31)
[2018-08-02] MEDS: BUDESONIDE NEB 0.5 MG/2 ML AMPUL NEB SCH ×2 (07:57→20:12)
[2018-08-02] MEDS: ACETYLCYSTEINE 20% SOLN 800 MG/4 ML VIAL.NEB NEB SCH ×2 (07:57→20:12)
[2018-08-02] MEDS: GUAIFENESIN 600 MG TABLET.SA PO SCH ×2 (09:03→21:31)
[2018-08-02] MEDS: METOPROLOL SUCCINATE 50 MG TAB.SR.24H PO SCH (09:03)
[2018-08-02] MEDS: ASPIRIN 81 MG TABLET, ENT COATED PO SCH (09:03)
[2018-08-02] MEDS: DOCUSATE SODIUM 100 MG CAPSULE PO SCH ×2 (09:03→17:01)
[2018-08-02] MEDS: FINASTERIDE 5 MG TABLET PO SCH (09:03)
[2018-08-02] MEDS: LISINOPRIL 10 MG TABLET PO SCH (09:03)
--- NOTE | 2018-08-02 15:39 | PDOC PROGRESS REPORT ---
Subjective Progress Note for:: 08/02/18 Subjective:: Assumed care today. Mr. 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 He was initially given solumedrol, breathing treatments and was initially BIPAP dependent. He was not able to tolerate the BIPAP. He did have gradual improvement and has been saturating well on 5L of NC. No acute event overnight. He has exertional dyspnea and is not able to work with PT. At baseline at home, he is only able to ambulate from his bedroom to the bathroom before gets really short of breath. Upon encounter this morning, he says his breathing has improved but he feels he is not at his baseline yet. He has moderately productive cough. He denies chest pain or palpitations. Discussed his advanced directives with (surrogate decision maker) on bedside and he says he is a DNR/DNI. He is receptive to palliative care consult. Discussed in length about placement to rehab/SNF and patient and are agreeable to plan. Reason For Visit: CHEST PAIN, ACUTE EXACERBATION OF COPD Physical Exam Vital Signs: Temp Pulse Resp BP Pulse Ox 98.6 F 108 H 22 H 137/62 H 100 08/02/18 12:00 08/02/18 14:00 08/02/18 12:00 08/02/18 12:00 08/02/18 12:00 Intake & Output 08/01/18 08/02/18 08/03/18 06:59 06:59 06:59 Intake Total 840 1483 425 Output Total 600 1325 200 Balance 240 158 225 Weight 196 lb 6.91 oz 191 lb 9.307 oz General appearance: PRESENT: no acute distress, well-developed, well-nourished Head exam: PRESENT: atraumatic, normocephalic Eye exam: PRESENT: conjunctiva pink, EOMI, PERRLA. ABSENT: scleral icterus Ear exam: PRESENT: normal external ear exam Mouth exam: PRESENT: moist, tongue midline Neck exam: ABSENT: carotid bruit, JVD, lymphadenopathy, thyromegaly Respiratory exam: PRESENT: decreased breath sounds, rales - occasional rales on the bases, rhonchi Cardiovascular exam: PRESENT: RRR. ABSENT: diastolic murmur, rubs, systolic murmur GI/Abdominal exam: PRESENT: normal bowel sounds, soft. ABSENT: distended, guarding, mass, organolmegaly, rebound, tenderness Rectal exam: PRESENT: deferred Neurological exam: PRESENT: alert, awake, oriented to person, oriented to place , oriented to time, oriented to situation, CN II-XII grossly intact. ABSENT: motor sensory deficit Results Laboratory Results: 08/02/18 04:59 08/02/18 04:59 08/02/18 08/02/18 04:59 04:59 WBC 6.7 RBC 3.29 L Hgb 9.3 L Hct 27.7 L MCV 84 MCH 28.4 MCHC 33.8 RDW 15.6 H Plt Count 202 Sodium 138.1 Potassium 4.1 Chloride 95 L Carbon Dioxide 33 H Anion Gap 10 BUN 22 H Creatinine 0.71 Est GFR ( Amer) > 60 Est GFR (Non-Af Amer) > 60 Glucose 110 Calcium 8.1 L Magnesium 1.9 07/31/18 13:40 Sputum Gram Stain - Final 07/31/18 13:40 Sputum Sputum Culture - Final Morax.(Branhamella)Catarrhalis Normal Jana 07/29/18 06:31 Sputum Gram Stain - Final 07/29/18 06:31 Sputum Sputum Culture - Final Morax.(Branhamella)Catarrhalis Normal Jana 07/28/18 07/28/18 07/29/18 23:10 23:10 04:56 Creatine Kinase 88 CK-MB (CK-2) 2.93 3.00 Troponin I 0.047 0.048 NT-Pro-B Natriuret Pep 1420 H 07/29/18 04:56 Creatine Kinase 92 CK-MB (CK-2) Troponin I NT-Pro-B Natriuret Pep Impressions: Chest X-Ray 07/28/18 11:10 IMPRESSION: 1. Cardiomegaly with small bilateral pleural effusions and/or pleural thickening. There is no focal airspace opacity or evidence of overt pulmonary edema in AP projection. 2. Calcified bilateral hilar and mediastinal lymph nodes, similar appearance to prior examination and in keeping with stigmata of prior granulomatous infection or pulmonary sarcoidosis. Correlate with clinical history. Assessment & Plan - Diagnosis (1) Acute on chronic respiratory failure Qualifiers: Respiratory failure complication: hypoxia and hypercapnia Qualified Code(s) : J96.21 - Acute and chronic respiratory failure with hypoxia; J96.22 - Acute and chronic respiratory failure with hypercapnia; J96.22 - Acute and chronic respiratory failure with hypercapnia; J96.22 - Acute and chronic respiratory failure with hypercapnia Is this a current diagnosis for this admission?: Yes Plan: Likely from COPD exacerbation on top of long standing COPD with emphysema. Patient did have acute respiratory acidosis upon admission. He requires 3L of O2 at home and is currently saturating well on 5L. Pulmonology has evaluated patient and is working on getting him a nasal mask for his BIPAP. (2) COPD exacerbation Is this a current diagnosis for this admission?: Yes Plan: Improving. PO steroids with Prednisone 20 mg bid. Continue breathing treatments. Sputum culture grew M. catarrhalis. He does have moderately productive cough. Appears patient was not on antibiotics. Patient reports he developed a nonspecific rash from a penicillin before. Will start Bactrim for possible tracheobronchitis. (3) Elevated troponin Is this a current diagnosis for this admission?: Yes Plan: Possibly from demand ischemia. Troponin was mildly elevated at 0.042. EKGs did not show findings suggestive of ischemia or infarction. - Time Time Spent with patient: 25-34 minutes
[2018-08-02] MEDS ORDERED: PREDNISONE 20 MG TABLET ONE (17:00)
[2018-08-02] MEDS ORDERED: LISINOPRIL 10 MG TABLET PO SCH (17:00)
[2018-08-02] MEDS: PREDNISONE 20 MG TABLET PO SCH (17:01)
[2018-08-02] MEDS: ALBUTEROL SULFATE 0.083% NEB 2.5 MG/3 ML AMPUL NEB PRN (20:12)
[2018-08-02] MEDS: SULFAMETHOXAZOLE/TRIMETHOPRIM 800-160 MG TABLET PO SCH (21:31)
[2018-08-02] MEDS: TAMSULOSIN HCL 0.4 MG CAP.SR.24H PO SCH (21:31)
[2018-08-03] MEDS: LEVALBUTEROL HCL NEB 1.25 MG/3 ML AMPUL NEB SCH ×3 (00:43→15:59)
[2018-08-03] MEDS: IPRATROPIUM BROMIDE 0.02% NEB 0.5 MG/2.5 ML AMPUL NEB SCH ×3 (00:43→15:59)
[2018-08-03] MEDS: LANSOPRAZOLE 15 MG TAB.RAP.DR PO SCH (05:21)
[2018-08-03] MEDS: HEPARIN SOD (PORCINE) 5,000 UNIT/ML 1 ML SYRINGE SUBCUT SCH ×2 (05:21→15:31)
[2018-08-03 06:30] LABS: ANION GAP 8 (5-19); BLOOD UREA NITROGEN 22 mg/dL (7-20); CALCIUM 8.5 mg/dL (8.4-10.2); CARBON DIOXIDE 33 mmol/L (22-30); CHLORIDE 96 mmol/L (98-107); GLUCOSE 119 mg/dL (75-110); POTASSIUM 4.5 mmol/L (3.6-5.0); SODIUM 136.8 mmol/L (137-145)
[2018-08-03 07:07] LABS: HEMATOCRIT 30.8 % (37.9-51.0); MEAN CORPUSCULAR HEMOGLOBIN 27.8 pg (27.0-33.4); MEAN CORPUSCULAR HGB CONC 32.9 g/dL (32.0-36.0); MEAN CORPUSCULAR VOLUME 85 fl (80-97); PLATELET COUNT 229 10^3/uL (150-450); RED BLOOD COUNT 3.64 10^6/uL (4.35-5.55); RED CELL DISTRIBUTION WIDTH 15.7 % (11.5-14.0); WHITE BLOOD COUNT 6.9 10^3/uL (4.0-10.5)
[2018-08-03 07:08] LABS: HEMOGLOBIN 10.1 g/dL (13.5-17.0)
[2018-08-03] MEDS ORDERED: ONDANSETRON 4 MG TAB.RAPDIS PO PRN (07:30)
[2018-08-03] MEDS ORDERED: ONDANSETRON HCL INJ/PF 4 MG/2 ML SDV IV PRN (07:30)
[2018-08-03] MEDS: ACETYLCYSTEINE 20% SOLN 800 MG/4 ML VIAL.NEB NEB SCH (07:43)
[2018-08-03] MEDS: BUDESONIDE NEB 0.5 MG/2 ML AMPUL NEB SCH (07:43)
[2018-08-03] MEDS ORDERED: LISINOPRIL 5 MG TABLET PO SCH (10:00)
[2018-08-03] MEDS: FINASTERIDE 5 MG TABLET PO SCH (11:16)
[2018-08-03] MEDS: METOPROLOL SUCCINATE 50 MG TAB.SR.24H PO SCH (11:16)
[2018-08-03] MEDS: DOCUSATE SODIUM 100 MG CAPSULE PO SCH ×2 (11:17→17:39)
[2018-08-03] MEDS: PREDNISONE 20 MG TABLET PO SCH ×2 (11:17→17:39)
[2018-08-03] MEDS: SULFAMETHOXAZOLE/TRIMETHOPRIM 800-160 MG TABLET PO SCH (11:17)
[2018-08-03] MEDS: ASPIRIN 81 MG TABLET, ENT COATED PO SCH (11:17)
[2018-08-03] MEDS: GUAIFENESIN 600 MG TABLET.SA PO SCH (11:17)
--- NOTE | 2018-08-03 14:25 | PDOC TRANSFER SUMMARY ---
General Admission Date/PCP: 07/28/18 19:45 MONTSE TOM MD Resuscitation Status: Do Not Resuscitate - Transfer Diagnosis (1) Acute on chronic respiratory failure Is this a current diagnosis for this admission?: Yes (2) COPD exacerbation Is this a current diagnosis for this admission?: Yes (3) Elevated troponin Is this a current diagnosis for this admission?: Yes (4) Physical deconditioning Is this a current diagnosis for this admission?: Yes - Transfer Medications Home Medications: Albuterol Sulfate [Ventolin 0.083% Neb 2.5 mg/3 mL Ampul] 2.5 mg NEB RTQ6HP PRN 07/28/18 Aspirin [Adult Low Dose Aspirin EC] 81 mg PO DAILY 07/28/18 Cetirizine HCl [Zyrtec 10 mg Tablet] 10 mg PO DAILY 07/28/18 Docusate Sodium [Colace 100 mg Capsule] 100 mg PO BIDP PRN 07/28/18 Finasteride [Proscar 5 mg Tablet] 5 mg PO DAILY 07/28/18 Guaifenesin [Mucinex] 1,200 mg PO BID 07/28/18 Ipratropium [place] 2 sprays NASL TID 07/28/18 Ipratropium/Albuterol Sulfate [Combivent Respimat 4 gm Mdi] 1 puff IH QID Lovastatin [Altoprev] 20 mg PO WSUPPER 07/28/18 Omeprazole 20 mg PO QAM 07/28/18 Tamsulosin HCl [Flomax 0.4 mg Cap.sr] 0.4 mg PO QHS 07/28/18 Umeclidinium [place] [Incruse Ellipta] 1 puff IH DAILY 07/28/18 Transfer Medications: Current Medications Acetylcysteine (Mucomist 20% Soln 800 Mg/4 Ml) 600 mg NEB RTBID [facility] Stop: 08/30/18 12:59 Last Admin: 08/03/18 07:43 Dose: 600 mg Al Hydrox/Mg Hydrox/Simethicone (Maalox Plus Susp 30 Udcup) 30 ml PO Q6HP PRN PRN Reason: HEARTBURN Stop: 08/27/18 15:25 Albuterol (Ventolin 0.083% Neb 2.5 Mg/3 Ml Ampul) 2.5 mg NEB RTQ1HP PRN PRN Reason: SHORTNESS OF BREATH Stop: 08/27/18 15:35 Last Admin: 08/02/18 20:12 Dose: 2.5 mg Aspirin (Ecotrin 81 Mg Ec Tablet) 81 mg PO DAILY [facility] Stop: 08/28/18 09:59 Last Admin: 08/03/18 11:17 Dose: 81 mg Budesonide (Pulmicort Neb 0.5 Mg/2 Ml Ampul) 0.5 mg NEB RTQ12 [facility] Stop: 08/27/18 19:59 Last Admin: 08/03/18 07:43 Dose: 0.5 mg Docusate Sodium (Colace 100 Mg Capsule) 100 mg PO BID [facility] Stop: 08/27/18 17:59 Last Admin: 08/03/18 11:17 Dose: 100 mg Finasteride (Proscar 5 Mg Tablet) 5 mg PO DAILY [facility] Stop: 08/28/18 09:59 Last Admin: 08/03/18 11:16 Dose: 5 mg Guaifenesin (Mucinex Sr 600 Mg Tablet.Sa) 1,200 mg PO Q12 [facility] Stop: 08/27/18 21:59 Last Admin: 08/03/18 11:17 Dose: 1,200 mg Heparin Sodium (Porcine) (Heparin Inj 5,000 Units/Ml 1 Ml Syringe) 5,000 unit SUBCUT Q8 [facility] Stop: 08/27/18 21:59 Last Admin: 08/03/18 05:21 Dose: 5,000 unit Hydralazine HCl (Apresoline Inj/Pf 20 Mg/1 Ml Sdv) 20 mg IV Q4HP PRN PRN Reason: Give For Sbp > 160 / Dbp > 100 Stop: 08/27/18 15:35 Ipratropium [place] (Atrovent 0.02% Neb 0.5 Mg/2.5 Ml Ampul) 0.5 mg NEB RTQ8 [facility] Stop: 08/27/18 15:59 Last Admin: 08/03/18 07:43 Dose: 0.5 mg Lansoprazole (Prevacid 15 Mg Odt Tablet) 15 mg PO BID@0600,1700 [facility] Stop: 08/27/18 16:59 Levalbuterol HCl (Xopenex Neb 1.25 Mg/3 Ml Ampul) 1.25 mg NEB RTQ8 [facility] Stop: 08/27/18 15:59 Last Admin: 08/03/18 07:43 Dose: 1.25 mg Lisinopril (Prinivil 5 Mg Tablet) 5 mg PO DAILY [facility] Stop: 09/02/18 09:59 Last Admin: 08/03/18 11:17 Dose: 5 mg Metoprolol Succinate (Toprol Xl 50 Mg Tab.Sr) 50 mg PO DAILY [facility] Stop: 08/29/18 09:59 Last Admin: 08/03/18 11:16 Dose: 50 mg Morphine Sulfate (Morphine 10 Mg/Ml Inj) 2 mg IV Q2HP PRN PRN Reason: FOR PAIN SCALE 1-2 Stop: 08/04/18 15:35 Morphine Sulfate (Morphine 10 Mg/Ml Inj) 3 mg IV Q2HP PRN PRN Reason: FOR PAIN SCALE 3-4 Stop: 08/04/18 15:35 Morphine Sulfate (Morphine 10 Mg/Ml Inj) 4 mg IV Q2HP PRN PRN Reason: PAIN SCALE OF 5 Stop: 08/04/18 15:35 Ondansetron HCl (Zofran Inj/Pf 4 Mg/2 Ml Sdv) 4 mg IV Q4HP PRN PRN Reason: FOR NAUSEA/VOMITING Stop: 08/27/18 15:25 Ondansetron HCl (Zofran Odt 4 Mg Tablet) 4 mg PO Q4HP PRN PRN Reason: FOR NAUSEA/VOMITING Stop: 08/27/18 15:25 Patient Own Medication (Lovastatin [Altoprev]) 20 mg PO WSUPPER [facility] Stop: 08/27/18 16:59 Prednisone (Deltasone 20 Mg Tablet) 20 mg PO BID [facility] Stop: 09/01/18 17:59 Last Admin: 08/03/18 11:17 Dose: 20 mg Sodium Chloride (Saline Flush 2.5 Ml Monoject Prefil Syrin) 2.5 ml IV Q8 [facility] Stop: 08/27/18 21:59 Last Admin: 08/03/18 05:21 Dose: 2.5 ml Tamsulosin HCl (Flomax 0.4 Mg Cap.Sr) 0.4 mg PO QHS [facility] Stop: 08/27/18 21:59 Last Admin: 08/02/18 21:31 Dose: 0.4 mg Trimethoprim/Sulfamethoxazole (Septra-Ds 800-160 Mg Tablet) 1 tab PO Q12 [facility] Stop: 08/09/18 21:59 Last Admin: 08/03/18 11:17 Dose: 1 tab Zolpidem Tartrate (Ambien 5 Mg Tablet) 5 mg PO HSP PRN PRN Reason: SLEEP OR INSOMNIA Stop: 08/04/18 15:25 - Allergies Allergies/Adverse Reactions: Penicillins Adverse Reaction (Mild, Verified 08/02/18 16:09) Generalized rash Hospital Course Hospital Course: Admitting hospitalist's H&P: Patient is a 88-year-old male that presents to the emergency department for chief complaint of shortness of breath and cough. Patient has COPD and has been using his home albuterol 4 times a day. He finished a course of prednisone taper and antibiotics at the beginning of June. He reports 3 weeks of slowly progressing shortness of breath but significant dyspnea over the last week. His dyspnea is worse with exertion. He denies any sputum production but does have a dry cough. He denies any fevers or chills. He denies chest pain, nausea, vomiting, abdominal pain, and palpitations. Patient received aspirin and Solu-Medrol by EMS prior to arrival. Course: Mr. 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 He was admitted for COPd exacerbation. He was initially given solumedrol, breathing treatments and was initially BIPAP dependent. He was not able to tolerate the BIPAP. He did have gradual improvement and has been saturating well on 5L of NC. At baseline at home, he is only able to ambulate from his bedroom to the bathroom before gets really short of breath. He was given IV steroids initially and eventually switched to oral steroids. He did have productive cough but x-ray did not show pneumonia. His sputum culture grew M. catarrhalis. He has history of rashes from penicillins hence was started on Bactrim for this. He has exertional dyspnea and is not able to work with PT and was recommended short term rehab to which the family and patient was agreeable. Pulmonology also evaluated patient and was able to obtain a nasal mask for his BIPAP machine as patient is not able to tolerate the full mask with the BIPAP. He did improve significantly and on day of discharge, felt he is at his baseline. As mentioned on his best days at home, he has exertional dyspnea and is only able to ambulate from his bed to the bathroom. Discussed his advanced directives with (surrogate decision maker) on bedside and he says he is a DNR/DNI. He is receptive to palliative care consult and was seen by them. He will be prescribed a 5 day course of prednisone and Bactrim. Physical Exam Vital Signs: Temp Pulse Resp BP Pulse Ox 97.6 F 87 16 112/60 98 08/03/18 03:32 08/03/18 07:46 08/03/18 07:46 08/03/18 03:32 08/03/18 07:46 Intake & Output 08/02/18 08/03/18 08/04/18 06:59 06:59 06:59 Intake Total 1483 993 395 Output Total 1325 425 Balance 158 568 395 Weight 191 lb 9.307 oz 191 lb 5.78 oz General appearance: PRESENT: no acute distress, well-developed, well-nourished Head exam: PRESENT: atraumatic, normocephalic Eye exam: PRESENT: conjunctiva pink, EOMI, PERRLA. ABSENT: scleral icterus Ear exam: PRESENT: normal external ear exam Mouth exam: PRESENT: moist, tongue midline Neck exam: ABSENT: carotid bruit, JVD, lymphadenopathy, thyromegaly Respiratory exam: PRESENT: clear to auscultation yue, rhonchi. ABSENT: rales Cardiovascular exam: PRESENT: RRR. ABSENT: diastolic murmur, rubs, systolic murmur Pulses: PRESENT: normal dorsalis pedis pul GI/Abdominal exam: PRESENT: normal bowel sounds, soft. ABSENT: distended, guarding, mass, organolmegaly, rebound, tenderness Rectal exam: PRESENT: deferred Neurological exam: PRESENT: alert, awake, oriented to person, oriented to place , oriented to time, oriented to situation, CN II-XII grossly intact. ABSENT: motor sensory deficit Results Laboratory Results: 08/03/18 06:35 08/03/18 05:20 08/03/18 08/03/18 08/03/18 05:20 05:20 06:35 WBC Cancelled 6.9 RBC Cancelled 3.64 L Hgb Cancelled 10.1 L Hct Cancelled 30.8 L MCV Cancelled 85 MCH Cancelled 27.8 MCHC Cancelled 32.9 RDW Cancelled 15.7 H Plt Count Cancelled 229 Sodium 136.8 L Potassium 4.5 Chloride 96 L Carbon Dioxide 33 H Anion Gap 8 BUN 22 H Creatinine 0.75 Est GFR ( Amer) > 60 Est GFR (Non-Af Amer) > 60 Glucose 119 H Calcium 8.5 Magnesium 1.9 07/31/18 13:40 Sputum Gram Stain - Final 07/31/18 13:40 Sputum Sputum Culture - Final Morax.(Branhamella)Catarrhalis Normal Jana 07/28/18 07/28/18 07/29/18 23:10 23:10 04:56 Creatine Kinase 88 CK-MB (CK-2) 2.93 3.00 Troponin I 0.047 0.048 NT-Pro-B Natriuret Pep 1420 H 07/29/18 04:56 Creatine Kinase 92 CK-MB (CK-2) Troponin I NT-Pro-B Natriuret Pep Impressions: Chest X-Ray 07/28/18 11:10 IMPRESSION: 1. Cardiomegaly with small bilateral pleural effusions and/or pleural thickening. There is no focal airspace opacity or evidence of overt pulmonary edema in AP projection. 2. Calcified bilateral hilar and mediastinal lymph nodes, similar appearance to prior examination and in keeping with stigmata of prior granulomatous infection or pulmonary sarcoidosis. Correlate with clinical history.
[2018-08-03] MEDS ORDERED: LANSOPRAZOLE 15 MG TAB.RAP.DR PO SCH (17:00)
[2018-08-03 17:28] VITALS: BP 132/56
--- NOTE | 2018-08-08 14:32 | PDOC CONSULTATION ---
Consultation Consult Date: 07/30/18 Attending physician:: CALLI RASMUSSEN Consult reason:: resp failure History of Present Illness Admission Date/PCP: 07/28/18 19:45 MONTSE TOM MD History of Present Illness: RENALDO DAWSON is a 88 year old male, emergency room with increasing shortness of breath and a cough he had exacerbation of his COPD approximately 6 weeks ago and had completed his antibiotics was on a tapering dose of prednisone as the prednisone began to taper his dyspnea became began to increase he denies hemoptysis his PPD was negative dates unknown no history of chronic lung disease as a child or adolescent. Poking his history is limited to 1 or 2 packs/day but only for 7 years admits to being exposed to large amounts of dust and dirt no recent travel angina-like chest pain sleeps on 2-3 pillows no PND no nocturnal cough no edema unaware of any snoring acknowledges restless sleep nocturia to 3 times per night on restful sleep and excessive daytime somnolence. Past Medical History Cardiac Medical History: Reports: Congestive Heart Failure, Coronary Artery Disease, Myocardial Infarction, Hyperlipidema, Hypertension Pulmonary Medical History: Reports: Bronchitis, Chronic Obstructive Pulmonary Disease (COPD), Pneumonia, Respiratory Failure Denies: Tuberculosis EENT Medical History: Reports: None Neurological Medical History: Denies: Hemorrhagic CVA, Ischemic CVA, Seizures Endocrine Medical History: Reports: Diabetes Mellitus Type 2 - DIET CONTROLLED Denies: Diabetes Mellitus Type 1 Renal/ Medical History: Denies: Chronic Kidney Disease, Nephrolithiasis Malignancy Medical History: Reports: None GI Medical History: Reports: Diverticulitis - With lower GI bleed, Hiatal Hernia Musculoskeltal Medical History: Denies: Arthritis, Gout Skin Medical History: Denies: Eczema, Psoriasis Psychiatric Medical History: Denies: Alcohol Dependency, Depression, Substance Abuse, Tobacco Dependency Traumatic Medical History: Reports: None Hematology: Reports: Anemia Denies: Bleeding Tendencies Infectious Medical History: Reports: None Past Surgical History Past Surgical History: Reports: Herniorrhaphy, Other - Colonoscopy Social History Information Source: Patient, [facility] Records 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 Lives with: Spouse/Significant other Smoking Status: Former Smoker Cigarettes Packs Per Day: 1 Number of Years Smokin Passive smoke exposure as: Both Frequency of Alcohol Use: Rare Hx Recreational Drug Use: No Drugs: None Hx Prescription Drug Abuse: No Do you have pets?: No Have you had any respiratory illnesses as a child?: No Have you been exposed to any sick contacts recently?: No Have you had any recent respiratory illnesses?: No Have you travelled outside of [place] in the past 12 months?: No - Advance Directive Resuscitation Status: Full Code Family History Family History: CAD, Hyperlipidemia, Hypertension, Malignancy Parental Family History Reviewed: Yes Children Family History Reviewed: Yes Sibling(s) Family History Reviewed.: Yes Medication/Allergy Home Medications: Albuterol Sulfate [Ventolin 0.083% Neb 2.5 mg/3 mL Ampul] 2.5 mg NEB RTQ6HP PRN 07/28/18 Aspirin [Adult Low Dose Aspirin EC] 81 mg PO DAILY 07/28/18 Cetirizine HCl [Zyrtec 10 mg Tablet] 10 mg PO DAILY 07/28/18 Docusate Sodium [Colace 100 mg Capsule] 100 mg PO BIDP PRN 07/28/18 Finasteride [Proscar 5 mg Tablet] 5 mg PO DAILY 07/28/18 Guaifenesin [Mucinex] 1,200 mg PO BID 07/28/18 Ipratropium [place] 2 sprays NASL TID 07/28/18 Ipratropium/Albuterol Sulfate [Combivent Respimat 4 gm Mdi] 1 puff IH QID Lovastatin [Altoprev] 20 mg PO WSUPPER 07/28/18 Omeprazole 20 mg PO QAM 07/28/18 Tamsulosin HCl [Flomax 0.4 mg Cap.sr] 0.4 mg PO QHS 07/28/18 Umeclidinium [place] [Incruse Ellipta] 1 puff IH DAILY 07/28/18 Lisinopril [Prinivil 5 mg Tablet] 5 mg PO DAILY #30 tablet 08/03/18 Prednisone [Deltasone 20 mg Tablet] 20 mg PO BID #10 tablet 08/03/18 Salmeterol Xinafoate [Serevent Diskus 50 Mcg/Dose 28 Dose/Diskus] 50 mcg IH Q12H #1 each 08/03/18 Sulfamethoxazole/Trimethoprim [Septra-Ds 800-160 mg Tablet] 1 tab PO Q12 #10 tablet 08/03/18 Allergies/Adverse Reactions: Penicillins Adverse Reaction (Mild, Verified 08/02/18 16:09) Generalized rash Review of Systems Constitutional: PRESENT: chills, fatigue, fever(s). ABSENT: anorexia, headache( s), night sweats Eyes: ABSENT: visual disturbances Ears: ABSENT: hearing changes Nose, Mouth, and Throat: ABSENT: sore throat Cardiovascular: PRESENT: dyspnea on exertion. ABSENT: edema, orthropnea, palpitations Respiratory: PRESENT: cough, dyspnea, sputum. ABSENT: hemoptysis Gastrointestinal: ABSENT: abdominal pain, coffee ground emesis, hematemesis, hematochezia, melena Genitourinary: ABSENT: dysuria, hematuria Musculoskeletal: ABSENT: deformity, joint swelling Integumentary: ABSENT: pruritus, rash Neurological: ABSENT: abnormal gait, abnormal movements, abnormal speech, focal weakness, lack of coordination, memory loss Psychiatric: ABSENT: hallucinations, homidical ideation, suicidal ideation Endocrine: ABSENT: cold intolerance, heat intolerance, polydipsia, polyuria Hematologic/Lymphatic: ABSENT: easy bruising, lymphadenopathy Allergic/Immunologic: ABSENT: seasonal rhinorrhea Physical Exam Vital Signs: Temp Pulse Resp BP Pulse Ox 97.7 F 108 H 30 H 153/97 H 97 07/30/18 07:47 07/30/18 07:47 07/30/18 07:47 07/30/18 07:47 07/30/18 07:47 Intake & Output 07/29/18 07/30/18 07/31/18 06:59 06:59 06:59 Intake Total 700 Output Total 20 Balance -20 700 Weight 83.2 kg 84.7 kg General appearance: PRESENT: no acute distress, cooperative, disheveled Head exam: PRESENT: atraumatic, normocephalic Eye exam: PRESENT: conjunctiva pale, EOMI. ABSENT: nystagmus, periorbital swelling, scleral icterus Mouth exam: PRESENT: dry mucosa, neck supple, tongue midline Neck exam: ABSENT: carotid bruit, JVD, lymphadenopathy, thyromegaly, tracheal deviation, tracheostomy Respiratory exam: PRESENT: rhonchi. ABSENT: decreased breath sounds, prolonged expiratory phas, retraction, stridor, tachypnea, unlabored Cardiovascular exam: PRESENT: RRR, +S1, +S2 Pulses: PRESENT: normal radial pulses GI/Abdominal exam: PRESENT: soft. ABSENT: tenderness Extremities exam: ABSENT: calf tenderness, clubbing, joint swelling, pedal edema Musculoskeletal exam: ABSENT: deformity, dislocation Neurological exam: PRESENT: alert, awake Psychiatric exam: PRESENT: normal mood Skin exam: PRESENT: dry, warm Results Laboratory Results: 07/30/18 04:17 07/30/18 04:17 07/30/18 07/30/18 07/30/18 04:17 04:17 08:25 WBC 11.6 H RBC 3.57 L Hgb 10.0 L Hct 30.5 L MCV 85 MCH 27.9 MCHC 32.7 RDW 15.5 H Plt Count 222 Seg Neutrophils % Not Reportable Lymphocytes % Not Reportable Monocytes % Not Reportable Eosinophils % Not Reportable Basophils % Not Reportable Absolute Neutrophils Not Reportable Absolute Lymphocytes Not Reportable Absolute Monocytes Not Reportable Absolute Eosinophils Not Reportable Absolute Basophils Not Reportable Carbonic Acid 2.46 H HCO3/H2CO3 Ratio 14:1 ABG pH 7.26 L ABG pCO2 81.6 H* ABG pO2 91.6 ABG HCO3 35.5 H ABG O2 Saturation 95.4 ABG Base Excess 5.8 FiO2 5L Sodium 140.1 Potassium 4.5 Chloride 96 L Carbon Dioxide 35 H Anion Gap 9 BUN 27 H Creatinine 0.66 Est GFR ( Amer) > 60 Est GFR (Non-Af Amer) > 60 Glucose 89 Calcium 8.9 Magnesium 1.8 07/30/18 10:35 WBC RBC Hgb Hct MCV MCH MCHC RDW Plt Count Seg Neutrophils % Lymphocytes % Monocytes % Eosinophils % Basophils % Absolute Neutrophils Absolute Lymphocytes Absolute Monocytes Absolute Eosinophils Absolute Basophils Carbonic Acid 1.92 H HCO3/H2CO3 Ratio 17:1 ABG pH 7.35 ABG pCO2 63.8 H ABG pO2 121.5 H ABG HCO3 34.1 H ABG O2 Saturation 98.1 H ABG Base Excess 6.1 FiO2 40% Sodium Potassium Chloride Carbon Dioxide Anion Gap BUN Creatinine Est GFR ( Amer) Est GFR (Non-Af Amer) Glucose Calcium Magnesium 07/28/18 07/28/18 07/29/18 23:10 23:10 04:56 Creatine Kinase 88 CK-MB (CK-2) 2.93 3.00 Troponin I 0.047 0.048 NT-Pro-B Natriuret Pep 1420 H 07/29/18 04:56 Creatine Kinase 92 CK-MB (CK-2) Troponin I NT-Pro-B Natriuret Pep Impressions: Chest X-Ray 07/28/18 11:10 IMPRESSION: 1. Cardiomegaly with small bilateral pleural effusions and/or pleural thickening. There is no focal airspace opacity or evidence of overt pulmonary edema in AP projection. 2. Calcified bilateral hilar and mediastinal lymph nodes, similar appearance to prior examination and in keeping with stigmata of prior granulomatous infection or pulmonary sarcoidosis. Correlate with clinical history. Assessment & Plan - Diagnosis (1) Acute on chronic respiratory failure Qualifiers: Respiratory failure complication: hypoxia and hypercapnia Qualified Code(s) : J96.21 - Acute and chronic respiratory failure with hypoxia; J96.22 - Acute and chronic respiratory failure with hypercapnia; J96.22 - Acute and chronic respiratory failure with hypercapnia; J96.22 - Acute and chronic respiratory failure with hypercapnia Is this a current diagnosis for this admission?: Yes Plan: BiPAP and oxygen (2) Anemia Qualifiers: Anemia type: unspecified type Qualified Code(s): D64.9 - Anemia, unspecified Is this a current diagnosis for this admission?: Yes Plan: GI bleed (3) COPD (chronic obstructive pulmonary disease) Qualifiers: COPD type: unspecified COPD Qualified Code(s): J44.9 - Chronic obstructive pulmonary disease, unspecified Is this a current diagnosis for this admission?: Yes Plan: Continue current bronchodilator therapy (4) HTN (hypertension) Qualifiers: Hypertension type: essential hypertension Qualified Code(s): I10 - Essential (primary) hypertension Is this a current diagnosis for this admission?: Yes Plan: Stable at this time
--- NOTE | 2018-08-08 14:38 | PDOC PROGRESS REPORT ---
Subjective Progress Note for:: 08/01/18 Subjective:: Somewhat better Reason For Visit: CHEST PAIN, ACUTE EXACERBATION OF COPD Physical Exam Vital Signs: Temp Pulse Resp BP Pulse Ox 98.9 F 92 22 H 132/69 H 100 08/02/18 08:21 08/02/18 08:21 08/02/18 08:21 08/02/18 08:21 08/02/18 08:21 Intake & Output 08/01/18 08/02/18 08/03/18 06:59 06:59 06:59 Intake Total 840 1483 Output Total 600 1325 Balance 240 158 Weight 89.1 kg 86.9 kg General appearance: PRESENT: no acute distress, cooperative, disheveled, well- developed, well-nourished Head exam: PRESENT: atraumatic, normocephalic Eye exam: PRESENT: conjunctiva pale, EOMI. ABSENT: nystagmus, periorbital swelling Mouth exam: PRESENT: dry mucosa, neck supple, tongue midline Neck exam: ABSENT: carotid bruit, JVD, lymphadenopathy, thyromegaly, tracheal deviation, tracheostomy Respiratory exam: PRESENT: decreased breath sounds, prolonged expiratory phas, rales, rhonchi, unlabored. ABSENT: retraction Cardiovascular exam: PRESENT: RRR, +S1, +S2 Pulses: PRESENT: normal radial pulses GI/Abdominal exam: PRESENT: soft. ABSENT: tenderness Gentrourinary exam: PRESENT: indwelling catheter Extremities exam: ABSENT: calf tenderness, clubbing, joint swelling Musculoskeletal exam: ABSENT: deformity, dislocation Neurological exam: PRESENT: alert, awake Psychiatric exam: PRESENT: normal mood Skin exam: PRESENT: dry, warm Results Laboratory Results: 08/02/18 04:59 08/02/18 04:59 08/02/18 08/02/18 04:59 04:59 WBC 6.7 RBC 3.29 L Hgb 9.3 L Hct 27.7 L MCV 84 MCH 28.4 MCHC 33.8 RDW 15.6 H Plt Count 202 Sodium 138.1 Potassium 4.1 Chloride 95 L Carbon Dioxide 33 H Anion Gap 10 BUN 22 H Creatinine 0.71 Est GFR ( Amer) > 60 Est GFR (Non-Af Amer) > 60 Glucose 110 Calcium 8.1 L Magnesium 1.9 07/31/18 13:40 Sputum Gram Stain - Final 07/31/18 13:40 Sputum Sputum Culture - Final Morax.(Branhamella)Catarrhalis Normal Jana 07/29/18 06:31 Sputum Gram Stain - Final 07/29/18 06:31 Sputum Sputum Culture - Final Morax.(Branhamella)Catarrhalis Normal Jana 07/28/18 07/28/18 07/29/18 23:10 23:10 04:56 Creatine Kinase 88 CK-MB (CK-2) 2.93 3.00 Troponin I 0.047 0.048 NT-Pro-B Natriuret Pep 1420 H 07/29/18 04:56 Creatine Kinase 92 CK-MB (CK-2) Troponin I NT-Pro-B Natriuret Pep Impressions: Chest X-Ray 07/28/18 11:10 IMPRESSION: 1. Cardiomegaly with small bilateral pleural effusions and/or pleural thickening. There is no focal airspace opacity or evidence of overt pulmonary edema in AP projection. 2. Calcified bilateral hilar and mediastinal lymph nodes, similar appearance to prior examination and in keeping with stigmata of prior granulomatous infection or pulmonary sarcoidosis. Correlate with clinical history. Assessment & Plan - Diagnosis (1) Acute on chronic respiratory failure Qualifiers: Respiratory failure complication: hypoxia and hypercapnia Qualified Code(s) : J96.21 - Acute and chronic respiratory failure with hypoxia; J96.22 - Acute and chronic respiratory failure with hypercapnia; J96.22 - Acute and chronic respiratory failure with hypercapnia; J96.22 - Acute and chronic respiratory failure with hypercapnia Is this a current diagnosis for this admission?: Yes Plan: BiPAP and oxygen (2) Anemia Qualifiers: Anemia type: unspecified type Qualified Code(s): D64.9 - Anemia, unspecified Is this a current diagnosis for this admission?: Yes Plan: GI bleed (3) HTN (hypertension) Qualifiers: Hypertension type: essential hypertension Qualified Code(s): I10 - Essential (primary) hypertension Is this a current diagnosis for this admission?: Yes Plan: Stable at this time
--- NOTE | 2018-08-08 14:42 | PDOC PROGRESS REPORT ---
Subjective Progress Note for:: 08/02/18 Subjective:: Somewhat better Reason For Visit: CHEST PAIN, ACUTE EXACERBATION OF COPD Physical Exam Vital Signs: Temp Pulse Resp BP Pulse Ox 98.9 F 92 22 H 132/69 H 100 08/02/18 08:21 08/02/18 08:21 08/02/18 08:21 08/02/18 08:21 08/02/18 08:21 Intake & Output 08/01/18 08/02/18 08/03/18 06:59 06:59 06:59 Intake Total 840 1483 Output Total 600 1325 Balance 240 158 Weight 89.1 kg 86.9 kg General appearance: PRESENT: no acute distress, cooperative, disheveled Head exam: PRESENT: atraumatic, normocephalic Eye exam: PRESENT: conjunctiva pale, EOMI Mouth exam: PRESENT: dry mucosa, neck supple, tongue midline Neck exam: ABSENT: carotid bruit, JVD, lymphadenopathy, thyromegaly, tracheal deviation, tracheostomy Respiratory exam: PRESENT: decreased breath sounds, prolonged expiratory phas, rhonchi, symmetrical, unlabored. ABSENT: rales, retraction, stridor Cardiovascular exam: PRESENT: RRR, +S1, +S2 Pulses: PRESENT: normal radial pulses Extremities exam: ABSENT: calf tenderness, clubbing, joint swelling, pedal edema Musculoskeletal exam: ABSENT: deformity, dislocation Neurological exam: PRESENT: alert, awake Psychiatric exam: PRESENT: normal mood Skin exam: PRESENT: dry, warm Results Laboratory Results: 08/02/18 04:59 08/02/18 04:59 08/02/18 08/02/18 04:59 04:59 WBC 6.7 RBC 3.29 L Hgb 9.3 L Hct 27.7 L MCV 84 MCH 28.4 MCHC 33.8 RDW 15.6 H Plt Count 202 Sodium 138.1 Potassium 4.1 Chloride 95 L Carbon Dioxide 33 H Anion Gap 10 BUN 22 H Creatinine 0.71 Est GFR ( Amer) > 60 Est GFR (Non-Af Amer) > 60 Glucose 110 Calcium 8.1 L Magnesium 1.9 07/31/18 13:40 Sputum Gram Stain - Final 07/31/18 13:40 Sputum Sputum Culture - Final Morax.(Branhamella)Catarrhalis Normal Jana 07/29/18 06:31 Sputum Gram Stain - Final 07/29/18 06:31 Sputum Sputum Culture - Final Morax.(Branhamella)Catarrhalis Normal Jana 07/28/18 07/28/18 07/29/18 23:10 23:10 04:56 Creatine Kinase 88 CK-MB (CK-2) 2.93 3.00 Troponin I 0.047 0.048 NT-Pro-B Natriuret Pep 1420 H 07/29/18 04:56 Creatine Kinase 92 CK-MB (CK-2) Troponin I NT-Pro-B Natriuret Pep Impressions: Chest X-Ray 07/28/18 11:10 IMPRESSION: 1. Cardiomegaly with small bilateral pleural effusions and/or pleural thickening. There is no focal airspace opacity or evidence of overt pulmonary edema in AP projection. 2. Calcified bilateral hilar and mediastinal lymph nodes, similar appearance to prior examination and in keeping with stigmata of prior granulomatous infection or pulmonary sarcoidosis. Correlate with clinical history. Assessment & Plan - Diagnosis (1) Acute on chronic respiratory failure Qualifiers: Respiratory failure complication: hypoxia and hypercapnia Qualified Code(s) : J96.21 - Acute and chronic respiratory failure with hypoxia; J96.22 - Acute and chronic respiratory failure with hypercapnia; J96.22 - Acute and chronic respiratory failure with hypercapnia; J96.22 - Acute and chronic respiratory failure with hypercapnia Is this a current diagnosis for this admission?: Yes Plan: BiPAP and oxygen (2) Anemia Qualifiers: Anemia type: unspecified type Qualified Code(s): D64.9 - Anemia, unspecified Is this a current diagnosis for this admission?: Yes Plan: GI bleed
--- NOTE | 2018-08-08 14:44 | PDOC PROGRESS REPORT ---
Subjective Progress Note for:: 08/03/18 Subjective:: Somewhat better Reason For Visit: CHEST PAIN, ACUTE EXACERBATION OF COPD Physical Exam Vital Signs: Temp Pulse Resp BP Pulse Ox 97.6 F 87 16 112/60 98 08/03/18 03:32 08/03/18 07:46 08/03/18 07:46 08/03/18 03:32 08/03/18 07:46 Intake & Output 08/02/18 08/03/18 08/04/18 06:59 06:59 06:59 Intake Total 1483 993 Output Total 1325 425 Balance 158 568 Weight 86.9 kg 86.8 kg General appearance: PRESENT: no acute distress, cooperative, disheveled, well- developed, well-nourished Head exam: PRESENT: atraumatic, normocephalic Eye exam: PRESENT: conjunctiva pale Mouth exam: PRESENT: dry mucosa, neck supple, tongue midline Neck exam: ABSENT: carotid bruit, JVD, lymphadenopathy, thyromegaly, tracheal deviation, tracheostomy Respiratory exam: PRESENT: decreased breath sounds, prolonged expiratory phas, rhonchi, unlabored. ABSENT: tachypnea Cardiovascular exam: PRESENT: RRR, +S1, +S2 Pulses: PRESENT: normal radial pulses GI/Abdominal exam: PRESENT: soft. ABSENT: tenderness Extremities exam: ABSENT: calf tenderness, clubbing, joint swelling, pedal edema Musculoskeletal exam: ABSENT: deformity, dislocation Neurological exam: PRESENT: alert, awake Psychiatric exam: PRESENT: normal mood Skin exam: PRESENT: dry, warm Results Laboratory Results: 08/03/18 06:35 08/03/18 05:20 08/03/18 08/03/18 08/03/18 05:20 05:20 06:35 WBC Cancelled 6.9 RBC Cancelled 3.64 L Hgb Cancelled 10.1 L Hct Cancelled 30.8 L MCV Cancelled 85 MCH Cancelled 27.8 MCHC Cancelled 32.9 RDW Cancelled 15.7 H Plt Count Cancelled 229 Sodium 136.8 L Potassium 4.5 Chloride 96 L Carbon Dioxide 33 H Anion Gap 8 BUN 22 H Creatinine 0.75 Est GFR ( Amer) > 60 Est GFR (Non-Af Amer) > 60 Glucose 119 H Calcium 8.5 Magnesium 1.9 07/31/18 13:40 Sputum Gram Stain - Final 07/31/18 13:40 Sputum Sputum Culture - Final Morax.(Branhamella)Catarrhalis Normal Jana 07/28/18 07/28/18 07/29/18 23:10 23:10 04:56 Creatine Kinase 88 CK-MB (CK-2) 2.93 3.00 Troponin I 0.047 0.048 NT-Pro-B Natriuret Pep 1420 H 07/29/18 04:56 Creatine Kinase 92 CK-MB (CK-2) Troponin I NT-Pro-B Natriuret Pep Impressions: Chest X-Ray 07/28/18 11:10 IMPRESSION: 1. Cardiomegaly with small bilateral pleural effusions and/or pleural thickening. There is no focal airspace opacity or evidence of overt pulmonary edema in AP projection. 2. Calcified bilateral hilar and mediastinal lymph nodes, similar appearance to prior examination and in keeping with stigmata of prior granulomatous infection or pulmonary sarcoidosis. Correlate with clinical history. Assessment & Plan - Diagnosis (1) Acute on chronic respiratory failure Qualifiers: Respiratory failure complication: hypoxia and hypercapnia Qualified Code(s) : J96.21 - Acute and chronic respiratory failure with hypoxia; J96.22 - Acute and chronic respiratory failure with hypercapnia; J96.22 - Acute and chronic respiratory failure with hypercapnia; J96.22 - Acute and chronic respiratory failure with hypercapnia Is this a current diagnosis for this admission?: Yes Plan: BiPAP and oxygen (2) Anemia Qualifiers: Anemia type: unspecified type Qualified Code(s): D64.9 - Anemia, unspecified Is this a current diagnosis for this admission?: Yes Plan: GI bleed (3) HTN (hypertension) Qualifiers: Hypertension type: essential hypertension Qualified Code(s): I10 - Essential (primary) hypertension Is this a current diagnosis for this admission?: Yes Plan: Stable at this time
== END 2018-08-03 20:01 | DRG 190 ==
LOC: ER 10:59 → EH 13:48 → 3W 17:42 → OBSVTOIN 19:45
PROVIDERS: ADMIT Hospitalist; ATTEND Hospitalist
PROC: 3E0F73Z Introduction of Anti-inflammatory into Respiratory Tract, Via Natural or Artificial Opening (ICD-10-PCS; 2018-07-28)
PROC: 5A09557 Assistance with Respiratory Ventilation, Greater than 96 Consecutive Hours, Continuous Positive Airway Pressure (ICD-10-PCS; principal; 2018-07-30)
DX: J43.9 Emphysema, unspecified (principal); J96.22 Acute and chronic respiratory failure with hypercapnia; I50.9 Heart failure, unspecified; I11.0 Hypertensive heart disease with heart failure; I25.10 Atherosclerotic heart disease of native coronary artery without angina pectoris; F41.9 Anxiety disorder, unspecified; R74.8 Abnormal levels of other serum enzymes; E78.5 Hyperlipidemia, unspecified; B96.89 Other specified bacterial agents as the cause of diseases classified elsewhere; D64.9 Anemia, unspecified; I49.3 Ventricular premature depolarization; Z66 Do not resuscitate; Z51.5 Encounter for palliative care; E11.9 Type 2 diabetes mellitus without complications; I25.2 Old myocardial infarction; Z87.891 Personal history of nicotine dependence; Z82.49 Family history of ischemic heart disease and other diseases of the circulatory system; Z80.9 Family history of malignant neoplasm, unspecified; Z79.82 Long term (current) use of aspirin; Z79.51 Long term (current) use of inhaled steroids; Z79.899 Other long term (current) drug therapy; Z88.0 Allergy status to penicillin; Z99.81 Dependence on supplemental oxygen
CPT/HCPCS: 36415; 36600; 71045; 80048; 80053; 82550; 82553; 82803; 83036; 83735; 83880; 84439; 84443; 84481; 84484; 85025; 85027; 87070; 87077; 87205; 93005; 93010; 94640; 94660; 99285; G8978-GP; G8979-GP; J1644; J2920; J3490; J7512; J7620

== ENCOUNTER 2018-08-24 06:53 | Inpatient (IN) | payer MEDICARE, OTHER ==
[2018-08-24] MEDS ORDERED: NORMAL SALINE 1000 ML 1,000 ML IV ONE (07:55)
[2018-08-24 08:14] LABS: HEMATOCRIT 25.5 % (37.9-51.0); HEMOGLOBIN 8.6 g/dL (13.5-17.0); MEAN CORPUSCULAR HEMOGLOBIN 29.3 pg (27.0-33.4); MEAN CORPUSCULAR HGB CONC 33.5 g/dL (32.0-36.0); MEAN CORPUSCULAR VOLUME 88 fl (80-97); PLATELET COUNT 237 10^3/uL (150-450); RED BLOOD COUNT 2.92 10^6/uL (4.35-5.55); RED CELL DISTRIBUTION WIDTH 15.8 % (11.5-14.0); WHITE BLOOD COUNT 10.2 10^3/uL (4.0-10.5)
--- NOTE | 2018-08-24 08:23 | ER Document Report ---
ED General - General Chief Complaint: Breathing Difficulty Stated Complaint: SHORTNESS OF BREATH Time Seen by Provider: 08/24/18 07:14 Mode of Arrival: Medic TRAVEL OUTSIDE OF THE [place] IN LAST 30 DAYS: No - HPI Patient complains to provider of: Short of breath Onset: Other - This is a pleasant demented 88-year-old man that presents for evaluation of some shortness of breath and rapid heart rate while at his nursing facility today. At this time he currently denies any chest pain, headache, abdominal pain, diarrhea conservation dysuria. Rest of history is limited secondary to patient's dementia. Per medical records he does not have a history of heart failure. - Related Data Allergies/Adverse Reactions: Penicillins Adverse Reaction (Mild, Verified 08/02/18 16:09) Generalized rash Past Medical History - General Information source: Patient, [facility] Records, Outside Facility Records Cannot obtain history due to: Dementia - Social History Smoking Status: Unknown if Ever Smoked Family History: CAD, Hyperlipidemia, Hypertension, Malignancy Patient has suicidal ideation: No Patient has homicidal ideation: No - Past Medical History Cardiac Medical History: Reports: Hx Congestive Heart Failure, Hx Coronary Artery Disease, Hx Heart Attack, Hx Hypercholesterolemia, Hx Hypertension Pulmonary Medical History: Reports: Hx Bronchitis, Hx COPD, Hx Pneumonia, Hx Respiratory Failure Denies: Hx Tuberculosis Neurological Medical History: Denies: Hx Seizures Endocrine Medical History: Reports: Hx Diabetes Mellitus Type 2 - DIET CONTROLLED. Denies: Hx Diabetes Mellitus Type 1 Renal/ Medical History: Denies: Hx Peritoneal Dialysis GI Medical History: Reports: Hx Diverticulitis - With lower GI bleed, Hx Hiatal Hernia Musculoskeletal Medical History: Denies Hx Arthritis, Denies Hx Gout Skin Medical History: Denies Hx Eczema, Denies Hx Psoriasis Psychiatric Medical History: Denies: Hx Depression Past Surgical History: Reports: Hx Herniorrhaphy, Other - Colonoscopy Review of Systems - Review of Systems -: Yes All other systems reviewed and negative Physical Exam - Vital signs Vitals: Temp 98.6 F 08/24/18 06:54 - General General appearance: Other - frail elderly man In distress: Mild - HEENT Head: Normocephalic Eyes: Normal Conjunctiva: Normal Cornea: Normal Extraocular movements intact: Yes - Respiratory Respiratory status: No respiratory distress Chest status: Nontender Breath sounds: Rales, Wheezing Chest palpation: Normal - Cardiovascular Rhythm: Irregularly irregular, Tachycardia Heart sounds: Normal auscultation Murmur: No - Abdominal Inspection: Normal Distension: No distension Bowel sounds: Normal Tenderness: Nontender - Back Back: Normal - Extremities General upper extremity: Normal inspection, Nontender, Normal color, Normal ROM , Normal temperature General lower extremity: Normal inspection, Edema - +1 edema bilaterally - Neurological Neuro grossly intact: No Cognition: Confused, Inattentive Orientation: Disoriented to time, Disoriented to events Sun Coma Scale Eye Opening: Spontaneous Miguelito Coma Scale Verbal: Confused Sun Coma Scale Motor: Obeys Commands Miguelito Coma Scale Total: 14 Speech: Normal Cranial nerves: Normal - Psychological Associated symptoms: Other - diminished insight Course - Re-evaluation Re-evalutation: 88 yo male with dimentia that presents for SOB. HE previously has had rate controlling agents, obstructive uropathy and COPD requiring hospitilization. On arrival he is dyspneac and tachycardic. HE is disoriented but at baseline. Will initiate broad workup for possible sepitc causes, cardiac causes or pulmonary causes. Have started with a 500 ML bolus to assess fluid responsiveness. Following administration of IVF patient is more tachypneac. Will initiate diureses, will administer oxygen and plan for administration of metoprolol as his pressure allows, currently am concerned his rate is causing failure. Administred 40 of lasix iv. Administred metoprolol with some response appreciable, do not see obvious pneumonia on CXR. Will defer antibiotics at this moment. Will plan for admission for continuing monitoring, diureses, rate control and reassessment. Current condition is concerning for possible decompensated heart failure, afib with rvr, copd exacerbation or other undiagnosed issue. At the moment with diuretic and rate control agent patient does appear somewhat improved but still short of breath beyond baseline. - Vital Signs Vital signs: Temp Pulse Resp BP Pulse Ox 97.5 F 91 17 145/92 H 94 08/28/18 08:10 08/28/18 08:42 08/28/18 08:42 08/28/18 08:10 08/28/18 08:42 - Laboratory Result Diagrams: 08/27/18 04:33 08/27/18 04:33 Laboratory results interpreted by me: 08/24/18 08/24/18 08/24/18 07:39 07:39 07:39 RBC 2.92 L Hgb 8.6 L Hct 25.5 L RDW 15.8 H Seg Neuts % (Manual) 84 H Band Neutrophils % 1 L Lymphocytes % (Manual) 6 L Metamyelocytes % 1 H Abs Neuts (Manual) 8.8 H VBG pCO2 VBG HCO3 Chloride 93 L Carbon Dioxide 41 H* BUN 33 H Calcium 8.2 L NT-Pro-B Natriuret Pep 2220 H Total Protein 4.9 L Albumin 2.6 L Urine Blood 08/24/18 08/24/18 08/24/18 09:34 10:02 10:02 RBC Hgb Hct RDW Seg Neuts % (Manual) Band Neutrophils % Lymphocytes % (Manual) Metamyelocytes % Abs Neuts (Manual) VBG pCO2 90.9 H* VBG HCO3 46.0 H Chloride Carbon Dioxide BUN Calcium NT-Pro-B Natriuret Pep 2290 H Total Protein Albumin Urine Blood MODERATE H Critical Care Note - Critical Care Note Total time excluding time spent on procedures (mins): 30 Discharge - Discharge Clinical Impression: Hypoxia, Tachycardia, Shortness of breath Condition: Stable Disposition: ADMITTED INPATIENT Admitting Provider: Hospitalist Unit Admitted: IMCU
--- NOTE | 2018-08-24 08:28 | RADIOLOGY REPORT (SQ) ---
EXAM DESCRIPTION: CHEST SINGLE VIEW COMPLETED DATE/TIME: 08/24/2018 8:04 am REASON FOR STUDY: PALPITATIONS COMPARISON: 07/28/2018 EXAM PARAMETERS: NUMBER OF VIEWS: One view. TECHNIQUE: Single frontal radiographic view of the chest acquired. RADIATION DOSE: NA LIMITATIONS: None. FINDINGS: LUNGS AND PLEURA: No opacities, masses or pneumothorax. No pleural effusion. MEDIASTINUM AND HILAR STRUCTURES: No masses. Contour normal. HEART AND VASCULAR STRUCTURES: Calcification of the thoracic aorta. BONES: No acute findings. HARDWARE: None in the chest. OTHER: No other significant finding. IMPRESSION: No acute abnormality of the lungs in AP projection. No focal airspace opacity. TECHNICAL DOCUMENTATION: JOB ID: [id number] [employer]- All Rights Reserved Reading location - IP/workstation name: [email or web address]
[2018-08-24 08:32] LABS: ALANINE AMINOTRANSFERASE 32 U/L (21-72); ALBUMIN 2.6 g/dL (3.5-5.0); ALKALINE PHOSPHATASE 76 U/L (38-126); ASPARTATE AMINO TRANSFERASE 27 U/L (17-59); BILIRUBIN,DIRECT 0.2 mg/dL (0.0-0.4); BILIRUBIN,TOTAL 0.7 mg/dL (0.2-1.3); BLOOD UREA NITROGEN 33 mg/dL (7-20); CALCIUM 8.2 mg/dL (8.4-10.2); CHLORIDE 93 mmol/L (98-107); GLUCOSE 97 mg/dL (75-110); POTASSIUM 3.9 mmol/L (3.6-5.0); TOTAL PROTEIN 4.9 g/dL (6.3-8.2)
[2018-08-24 08:36] LABS: ABSOLUTE LYMPHOCYTES# (MANUAL) 0.6 10^3/uL (0.5-4.7); ABSOLUTE MONOCYTES # (MANUAL) 0.6 10^3/uL (0.1-1.4); ABSOLUTE NEUTROPHILS# (MANUAL) 8.8 10^3/uL (1.7-8.2); BAND NEUTROPHILS % (MANUAL) 1 % (3-5); BASOPHILS % (MANUAL) 0 % (0-2); EOSINOPHILS % (MANUAL) 2 % (0-6); LYMPHOCYTES % (MANUAL) 6 % (13-45); METAMYELOCYTES % (MANUAL) 1 % (0); MONOCYTES % (MANUAL) 6 % (3-13); SEGMENTED NEUTROPHILS % (MAN) 84 % (42-78); TOTAL CELLS COUNTED 100
[2018-08-24 08:38] LABS: OVALOCYTES 1+; PLATELET COMMENT ADEQUATE; POIKILOCYTOSIS 1+; TOXIC GRANULATION 1+; TOXIC VACUOLATION PRESENT
[2018-08-24 08:45] LABS: TROPONIN I 0.083 ng/mL
[2018-08-24 08:49] LABS: SODIUM 139.4 mmol/L (137-145)
[2018-08-24] MEDS ORDERED: FUROSEMIDE INJ/PF 40 MG/4 ML SDV IV ONE (08:59)
[2018-08-24 09:03] LABS: ANION GAP 5 (5-19); CARBON DIOXIDE 41 mmol/L (22-30)
[2018-08-24 10:05] LABS: APPEARANCE,URINE CLEAR; BILIRUBIN,URINE NEGATIVE (NEGATIVE); COLOR,URINE YELLOW; GLUCOSE, URINE NEGATIVE (NEGATIVE); KETONES,URINE NEGATIVE (NEGATIVE); LEUKOCYTE ESTERASE,URINE NEGATIVE (NEGATIVE); NITRITE,URINE NEGATIVE (NEGATIVE); PROTEIN,URINE NEGATIVE (NEGATIVE); URINE SPECIFIC GRAVITY 1.015; UROBILINOGEN,URINE NEGATIVE mg/dL (<2.0)
[2018-08-24] MEDS ORDERED: METOPROLOL TARTRATE PF/INJ 5 MG/5 ML SDV IV ONE (10:22)
[2018-08-24] MEDS ORDERED: METOPROLOL TARTRATE 25 MG TABLET PO ONE (10:22)
[2018-08-24 10:32] LABS: VENOUS BLOOD BASE EXCESS 15.8 mmol/L; VENOUS BLOOD PH 7.32 (7.30-7.42)
[2018-08-24 10:42] LABS: VENOUS BLOOD PCO2 90.9 mmHg (35-63)
[2018-08-24] MEDS ORDERED: ALBUTEROL SULFATE 0.042% NEB (1.25 MG/3 ML) AMPUL NEB PRN (11:59)
--- NOTE | 2018-08-24 12:30 | PDOC H&P ---
History of Present Illness Admission Date/PCP: MONTSE TOM MD Patient complains of: [facility] noticing abnormal heart rhythm by the nursing staff History of Present Illness: RENALDO DAWSON is a 88 year old male with history of COPD on 4 L oxygen, chronic renal insufficiency, urinary retention, dementia, congestive heart failure recently admitted in the hospital here 2 weeks ago for COPD exacerbation and transferred to [facility] for acute rehab sent to the ER after the nursing staff noticed abnormal cardiac rhythm. Family is also reporting and patient is reporting increasing shortness of breath for the last few days. Patient denies any chest pains. Denies any upper respiratory tract symptoms. Denies any nausea vomiting diarrhea. Positive for constipation history. Family is also given the history that patient fell at the jail and he has humeral fracture left side. The emergency room is found to have a heart rate of 120s 130s indicating his atrial tachycardia he was given metoprolol 5 mg IV push on the heart rate was relatively controlled after the 2 troponins were done the borderline -0.017. The ER physician thought patient may be dehydrated and was given a 500 cc normal saline bolus with the patient respiration gotten worse which was compensated by Lasix dose. From the CODE STATUS with the patient and the family that he is DNR/DNI. Past Medical History Cardiac Medical History: Reports: Congestive Heart Failure, Coronary Artery Disease, Myocardial Infarction, Hyperlipidema, Hypertension Pulmonary Medical History: Reports: Bronchitis, Chronic Obstructive Pulmonary Disease (COPD), Pneumonia, Respiratory Failure Denies: Tuberculosis Neurological Medical History: Denies: Seizures Endocrine Medical History: Reports: Diabetes Mellitus Type 2 - DIET CONTROLLED Denies: Diabetes Mellitus Type 1 GI Medical History: Reports: Diverticulitis - With lower GI bleed, Hiatal Hernia Musculoskeltal Medical History: Denies: Arthritis, Gout Skin Medical History: Denies: Eczema, Psoriasis Psychiatric Medical History: Denies: Depression Hematology: Reports: Anemia Denies: Bleeding Tendencies Past Surgical History Past Surgical History: Reports: Herniorrhaphy, Other - Colonoscopy Social History Smoking Status: Unknown if Ever Smoked Frequency of Alcohol Use: Rare Hx Recreational Drug Use: No Drugs: None Hx Prescription Drug Abuse: No - Advance Directive Resuscitation Status: Do Not Resuscitate Family History Family History: CAD, Hyperlipidemia, Hypertension, Malignancy Parental Family History Reviewed: Yes Children Family History Reviewed: Yes Sibling(s) Family History Reviewed.: Yes Medication/Allergy Allergies/Adverse Reactions: Penicillins Adverse Reaction (Mild, Verified 08/02/18 16:09) Generalized rash Review of Systems Constitutional: ABSENT: chills, fever(s), headache(s) Eyes: ABSENT: visual disturbances Ears: ABSENT: hearing changes Cardiovascular: PRESENT: dyspnea on exertion. ABSENT: chest pain Respiratory: PRESENT: other - Patient says he is coughing up occasional phlegm dark in color.. ABSENT: dyspnea Gastrointestinal: PRESENT: constipation Genitourinary: PRESENT: difficulty urinating Musculoskeletal: ABSENT: joint swelling Integumentary: ABSENT: rash, wounds Neurological: ABSENT: abnormal gait, abnormal speech, confusion, dizziness, focal weakness, syncope Psychiatric: ABSENT: anxiety, depression, homidical ideation, suicidal ideation Physical Exam Vital Signs: Temp Pulse Resp BP Pulse Ox 98.6 F 20 117/61 86 L 08/24/18 06:54 08/24/18 10:01 08/24/18 10:01 08/24/18 10:01 Intake & Output 08/23/18 08/24/18 08/25/18 06:59 06:59 06:59 Intake Total 982 Balance 982 Weight 91.1 kg General appearance: PRESENT: mild distress Head exam: PRESENT: atraumatic Eye exam: PRESENT: PERRLA Mouth exam: PRESENT: moist Neck exam: ABSENT: carotid bruit, JVD, lymphadenopathy, thyromegaly Respiratory exam: PRESENT: decreased breath sounds, wheezes Cardiovascular exam: PRESENT: tachycardia GI/Abdominal exam: PRESENT: normal bowel sounds, soft, other - Thompson's catheter in place. ABSENT: distended, guarding, mass, organolmegaly, rebound, tenderness Neurological exam: PRESENT: alert, awake, oriented to person, oriented to place , oriented to time, oriented to situation, CN II-XII grossly intact. ABSENT: motor sensory deficit Psychiatric exam: PRESENT: appropriate affect, normal mood. ABSENT: homicidal ideation, suicidal ideation Results Laboratory Results: 08/24/18 07:39 08/24/18 07:39 08/24/18 08/24/18 08/24/18 07:39 07:39 09:34 WBC 10.2 RBC 2.92 L Hgb 8.6 L Hct 25.5 L MCV 88 MCH 29.3 MCHC 33.5 RDW 15.8 H Plt Count 237 Seg Neutrophils % Not Reportable Lymphocytes % Not Reportable Monocytes % Not Reportable Eosinophils % Not Reportable Basophils % Not Reportable Absolute Neutrophils Not Reportable Absolute Lymphocytes Not Reportable Absolute Monocytes Not Reportable Absolute Eosinophils Not Reportable Absolute Basophils Not Reportable VBG pH VBG pCO2 VBG HCO3 VBG Base Excess Sodium 139.4 Potassium 3.9 Chloride 93 L Carbon Dioxide 41 H* Anion Gap 5 BUN 33 H Creatinine 0.61 Est GFR ( Amer) > 60 Est GFR (Non-Af Amer) > 60 Glucose 97 Calcium 8.2 L Total Bilirubin 0.7 AST 27 ALT 32 Alkaline Phosphatase 76 Total Protein 4.9 L Albumin 2.6 L Urine Color YELLOW Urine Appearance CLEAR Urine pH 6.0 Ur Specific Mason 1.015 Urine Protein NEGATIVE Urine Glucose (UA) NEGATIVE Urine Ketones NEGATIVE Urine Blood MODERATE H Urine Nitrite NEGATIVE Ur Leukocyte Esterase NEGATIVE Urine WBC (Auto) 6 Urine RBC (Auto) 11 08/24/18 10:02 WBC RBC Hgb Hct MCV MCH MCHC RDW Plt Count Seg Neutrophils % Lymphocytes % Monocytes % Eosinophils % Basophils % Absolute Neutrophils Absolute Lymphocytes Absolute Monocytes Absolute Eosinophils Absolute Basophils VBG pH 7.32 VBG pCO2 90.9 H* VBG HCO3 46.0 H VBG Base Excess 15.8 Sodium Potassium Chloride Carbon Dioxide Anion Gap BUN Creatinine Est GFR ( Amer) Est GFR (Non-Af Amer) Glucose Calcium Total Bilirubin AST ALT Alkaline Phosphatase Total Protein Albumin Urine Color Urine Appearance Urine pH Ur Specific Mason Urine Protein Urine Glucose (UA) Urine Ketones Urine Blood Urine Nitrite Ur Leukocyte Esterase Urine WBC (Auto) Urine RBC (Auto) 08/24/18 08/24/18 07:39 10:02 Troponin I 0.083 0.075 NT-Pro-B Natriuret Pep 2220 H Impressions: Chest X-Ray 08/24/18 07:29 IMPRESSION: No acute abnormality of the lungs in AP projection. No focal airspace opacity. Assessment & Plan - Diagnosis (1) Tachycardia Is this a current diagnosis for this admission?: Yes Plan: 08/24/2018-this elderly patient with history of COPD congestive heart failure coronary artery disease referred from jail for abnormal lithium and in the ER the heart rate in the 120s given IV metoprolol 5 mg and rate was relatively controlled. The plan plan is to do the cardiac enzymes x3, echocardiogram, and cardiology consult. I placed patient on metoprolol 25 mg p.o. twice daily. So far 2 sets of troponins are borderline 0.017. She denies any chest pain. Order for the EKG. first EKG shows sinus tachycardia with intermittent PACs. (2) COPD with exacerbation Is this a current diagnosis for this admission?: Yes Plan: 08/24/2018-patient has a long history of COPD came in with COPD exacerbation with increasing shortness of breath. VBG shows PCO2 of 91%. I placed the order for BiPAP as needed, albuterol nebulizations every 6 as needed, Xopenex nebulizations every 8 hours, flutter valve, IV Solu-Medrol 125 mg every 8 hours. Also placed him on prophylactic antibiotics ceftriaxone 1 g daily. (3) BPH (benign prostatic hyperplasia) Qualifiers: Lower urinary tract symptom presence: unspecified whether lower urinary tract symptoms present Qualified Code(s): N40.0 - Benign prostatic hyperplasia without lower urinary tract symptoms Is this a current diagnosis for this admission?: Yes Plan: 08/24/2018-patient has a chronic history of COPD, Thompson's cath was placed in the ER 1800 mL of urine voided. We are going to keep the Thompson for now. (4) Humerus fracture Is this a current diagnosis for this admission?: Yes Plan: 08/24/2018-patient came in with history of left humeral fracture. According to the family it happened more than a week ago. The recommendation from the ortho team as per the family is conservative management at this time. I am going to place a consult for orthopedics (5) Anemia Qualifiers: Anemia type: unspecified type Qualified Code(s): D64.9 - Anemia, unspecified Is this a current diagnosis for this admission?: Yes Plan: 08/24/2018-patient has history of anemia of chronic disease. Hemoglobin is 8.6. Going to follow the CBC on regular basis. - Time Time Spent: 30 to 50 Minutes Medications reviewed and adjusted accordingly: Yes Anticipated discharge: SNF
[2018-08-24] MEDS ORDERED: LEVALBUTEROL HCL NEB 1.25 MG/3 ML AMPUL NEB SCH (14:00)
[2018-08-24] MEDS ORDERED: (PENDING PHARMACY ID) (Ondansetron Hcl [Zofran 4 Mg Tablet] 4 MG) PO PRN (14:38)
[2018-08-24] MEDS ORDERED: ALBUTEROL SULFATE 0.083% NEB 2.5 MG/3 ML AMPUL NEB PRN (14:38)
[2018-08-24] MEDS ORDERED: ACETAMINOPHEN 325 MG TABLET PO PRN (14:38)
[2018-08-24] MEDS ORDERED: POLYETHYLENE GLYCOL 3350 POWDER 17 GM/1 PACKET PO PRN (14:38)
[2018-08-24] MEDS ORDERED: SENNOSIDES/DOCUSATE 8.6-50 MG 1 EACH TABLET PO PRN (14:38)
[2018-08-24] MEDS ORDERED: ONDANSETRON 4 MG TAB.RAPDIS PO PRN (14:52)
[2018-08-24 15:09] LABS: ARTERIAL BLOOD BASE EXCESS 20.8 mmol/L; ARTERIAL BLOOD H2CO3 2.67 mmol/L (1.05-1.35); ARTERIAL BLOOD HCO3 49.2 mmol/L (20-24); ARTERIAL BLOOD O2 SATURATION 96.5 % (94-98); ARTERIAL BLOOD PH 7.36 (7.35-7.45); ARTERIAL BLOOD PO2 94.7 mmHg (80-100); ARTERIAL BLOOD TOTAL CO2 51.9 mmol/L (23-27)
[2018-08-24 15:10] LABS: ARTERIAL BLOOD FIO2 2LPM
[2018-08-24 15:12] LABS: ARTERIAL BLOOD PCO2 88.6 mmHg (35-45)
[2018-08-24] MEDS: LEVALBUTEROL HCL NEB 1.25 MG/3 ML AMPUL NEB SCH ×2 (17:10→23:55)
[2018-08-24] MEDS: FUROSEMIDE 20 MG TABLET PO SCH (17:43)
[2018-08-24] MEDS: DOCUSATE SODIUM 100 MG CAPSULE PO SCH (17:43)
[2018-08-24] MEDS: METHYLPREDNISOLONE INJ 125 MG/2 ML SDV IV SCH ×2 (17:43→21:50)
[2018-08-24] MEDS: PHOSPHORUS #1 250 MG TABLET PO SCH (17:44)
[2018-08-24] MEDS ORDERED: NORMAL SALINE 250 ML IV PRN ×2 (17:56)
[2018-08-24] MEDS ORDERED: METOPROLOL SUCCINATE 25 MG TAB.SR.24H PO SCH (18:00)
[2018-08-24] MEDS ORDERED: SALMETEROL XINAFOATE DISKUS 50 MCG/1 DOSE 28 DOSE IH SCH (18:00)
[2018-08-24] MEDS ORDERED: (PENDING PHARMACY ID) (Guaifenesin [Mucinex] 1,200 MG) PO SCH (18:00)
[2018-08-24] MEDS: IPRATROPIUM/ALBUTEROL 120 PUFF/4 GM MDI IH SCH ×2 (18:24→21:56)
[2018-08-24] MEDS: FAMOTIDINE 20 MG TABLET PO SCH (18:24)
[2018-08-24] MEDS ORDERED: DILTIAZEM HCL 60 MG TABLET PO ONE (19:30)
[2018-08-24] MEDS ORDERED: DILTIAZEM HCL INJ 25 MG/5 ML VIAL IV ONE (20:30)
--- NOTE | 2018-08-24 21:07 | EKG REPORT ---
SEVERITY:- BORDERLINE ECG - SINUS TACHYCARDIA WITH IRREGULAR RATE [id number] : Confirmed by: Domi House MD 24-Aug-2018 21:05:17
--- NOTE | 2018-08-24 21:07 | EKG REPORT ---
SEVERITY:- BORDERLINE ECG - SINUS TACHYCARDIA WITH IRREGULAR RATE [id number] : Confirmed by: Domi House MD 24-Aug-2018 21:05:10
[2018-08-24] MEDS: GUAIFENESIN 600 MG TABLET.SA PO SCH (21:49)
[2018-08-24] MEDS: TAMSULOSIN HCL 0.4 MG CAP.SR.24H PO SCH (21:49)
[2018-08-24] MEDS: ATORVASTATIN CALCIUM 10 MG TABLET PO SCH (21:49)
[2018-08-24] MEDS ORDERED: DILTIAZEM HCL 60 MG TABLET PO SCH ×2 (22:00)
[2018-08-25] MEDS: DILTIAZEM HCL 60 MG TABLET PO SCH ×4 (00:35→21:51)
[2018-08-25] MEDS: METHYLPREDNISOLONE INJ 125 MG/2 ML SDV IV SCH ×2 (05:44→21:51)
[2018-08-25] MEDS ORDERED: (PENDING PHARMACY ID) (Umeclidinium Bromide [Incruse Ellipta] 1 PUFF) IH SCH (08:00)
[2018-08-25] MEDS ORDERED: VITAMIN D3 PO SCH (08:00)
[2018-08-25] MEDS ORDERED: CALCIUM CITRATE PO SCH (08:00)
[2018-08-25] MEDS ORDERED: [UNRECOGNIZED DRUG - OTHER] PO SCH (08:00)
[2018-08-25] MEDS: LEVALBUTEROL HCL NEB 1.25 MG/3 ML AMPUL NEB SCH ×2 (08:09→16:14)
[2018-08-25] MEDS: LANSOPRAZOLE 15 MG TAB.RAP.DR PO SCH (08:59)
[2018-08-25] MEDS: CALCIUM CARBONATE 250 MG/VITAMIN D3 125 UNIT TABLET PO SCH (08:59)
[2018-08-25] MEDS: CETIRIZINE 10 MG TABLET PO SCH (08:59)
[2018-08-25] MEDS: FINASTERIDE 5 MG TABLET PO SCH (08:59)
[2018-08-25] MEDS ORDERED: CEFTRIAXONE 1 GM/D5W RTU 1 GM/50 ML RTUPB IV SCH (10:00)
[2018-08-25] MEDS ORDERED: ENOXAPARIN SODIUM INJ 30 MG/0.3 ML DISP.SYRIN SUBCUT SCH (10:00)
[2018-08-25] MEDS: CEFTRIAXONE SODIUM 1,000 MG in DEXTROSE 5%-WATER 50 ML IV SCH (11:16)
[2018-08-25] MEDS: PHOSPHORUS #1 250 MG TABLET PO SCH ×2 (11:16→17:22)
[2018-08-25] MEDS: GUAIFENESIN 600 MG TABLET.SA PO SCH ×2 (11:16→21:51)
[2018-08-25] MEDS: DOCUSATE SODIUM 100 MG CAPSULE PO SCH ×2 (11:16→17:21)
[2018-08-25] MEDS: SALMETEROL XINAFOATE DISKUS 50 MCG/1 DOSE 28 DOSE IH SCH ×2 (11:17→21:52)
[2018-08-25] MEDS: ENOXAPARIN SODIUM INJ 40 MG/0.4 ML DISP.SYRIN SUBCUT SCH (11:17)
[2018-08-25] MEDS: FAMOTIDINE 20 MG TABLET PO SCH ×2 (11:17→17:21)
[2018-08-25] MEDS: FUROSEMIDE 20 MG TABLET PO SCH ×3 (11:17→17:28)
[2018-08-25] MEDS: IPRATROPIUM/ALBUTEROL 120 PUFF/4 GM MDI IH SCH ×4 (11:18→21:52)
[2018-08-25] MEDS ORDERED: ALPRAZOLAM 0.5 MG TABLET PO PRN (13:16)
--- NOTE | 2018-08-25 13:32 | PDOC PROGRESS REPORT ---
Subjective Progress Note for:: 08/25/18 Subjective:: 88-year-old male referred from the half-way for abnormal rhythm in the emergency room he was found to be in atrial tachycardia and also was in shortness of breath we admitted him for abnormal heart rhythm management. Last night patient was confused he was placed on restraints. Because he is tried to pull off his BiPAP. He refused blood and unit of blood transfusion yesterday. Today he still looks like confused but not agitated. Family members at bedside. His pulse ox is on 3 L is 98%. Afebrile. Reason For Visit: PAROXYSMAL ATRIAL TACHYCARDIA Physical Exam Vital Signs: Temp Pulse Resp BP Pulse Ox 98.1 F 94 21 H 130/86 H 98 08/25/18 12:17 08/25/18 12:17 08/25/18 12:17 08/25/18 12:17 08/25/18 12:17 Intake & Output 08/24/18 08/25/18 08/26/18 06:59 06:59 06:59 Intake Total 255 237 Output Total 700 500 Balance -445 -263 Weight 93.3 kg General appearance: PRESENT: no acute distress, other - Confused Head exam: PRESENT: atraumatic Eye exam: PRESENT: PERRLA Mouth exam: PRESENT: dry mucosa Neck exam: ABSENT: carotid bruit, JVD, lymphadenopathy, thyromegaly Respiratory exam: PRESENT: decreased breath sounds, other - Bilateral entry was decreased but there is no wheezing but few crackles at the bases. Cardiovascular exam: PRESENT: tachycardia GI/Abdominal exam: PRESENT: normal bowel sounds, soft. ABSENT: distended, guarding, mass, organolmegaly, rebound, tenderness Neurological exam: PRESENT: alert, awake, oriented to person, oriented to place , oriented to time, oriented to situation, CN II-XII grossly intact. ABSENT: motor sensory deficit Psychiatric exam: PRESENT: appropriate affect, normal mood. ABSENT: homicidal ideation, suicidal ideation Results Laboratory Results: 08/24/18 08/24/18 14:05 18:25 Carbonic Acid 2.67 H HCO3/H2CO3 Ratio 18:1 ABG pH 7.36 ABG pCO2 88.6 H* ABG pO2 94.7 ABG HCO3 49.2 H ABG O2 Saturation 96.5 ABG Base Excess 20.8 FiO2 2LPM Blood Type O NEGATIVE Antibody Screen NEGATIVE Impressions: Chest X-Ray 08/24/18 07:29 IMPRESSION: No acute abnormality of the lungs in AP projection. No focal airspace opacity. Assessment & Plan - Diagnosis (1) Tachycardia Is this a current diagnosis for this admission?: Yes Plan: 08/24/2018-this elderly patient with history of COPD congestive heart failure coronary artery disease referred from half-way for abnormal lithium and in the ER the heart rate in the 120s given IV metoprolol 5 mg and rate was relatively controlled. The plan plan is to do the cardiac enzymes x3, echocardiogram, and cardiology consult. I placed patient on metoprolol 25 mg p.o. twice daily. So far 2 sets of troponins are borderline 0.017. She denies any chest pain. Order for the EKG. first EKG shows sinus tachycardia with intermittent PACs. 08/25/2018 cardiology consult was placed yesterday I discussed the care with Dr. House he thinks patient has MAT 30 is multi focal atrial tachycardia. Patient was started on Cardizem yesterday. Cardizem 60 mg p.o. every 8 hours. Rate today is 94 he is in sinus tach rhythm. We will continue the present management. (2) COPD with exacerbation Is this a current diagnosis for this admission?: Yes Plan: 08/24/2018-patient has a long history of COPD came in with COPD exacerbation with increasing shortness of breath. VBG shows PCO2 of 91%. I placed the order for BiPAP as needed, albuterol nebulizations every 6 as needed, Xopenex nebulizations every 8 hours, flutter valve, IV Solu-Medrol 125 mg every 8 hours. Also placed him on prophylactic antibiotics ceftriaxone 1 g daily. 08/25/2018-patient has a long history of COPD came in with exacerbation of shortness of breath. He has hypercapnia. VBG shows PCO2 of 91. Yesterday's labs CO2 is 41. To repeat the labs today. (3) BPH (benign prostatic hyperplasia) Qualifiers: Lower urinary tract symptom presence: unspecified whether lower urinary tract symptoms present Qualified Code(s): N40.0 - Benign prostatic hyperplasia without lower urinary tract symptoms Is this a current diagnosis for this admission?: Yes Plan: 08/24/2018-patient has a chronic history of COPD, Thompson's cath was placed in the ER 1800 mL of urine voided. We are going to keep the Thompson for now. 08/25/2018 patient has history of BPH. He was a Thompson's catheter. Plan to keep the Thompson's catheter during this hospital stay. (4) Humerus fracture Is this a current diagnosis for this admission?: Yes Plan: 08/24/2018-patient came in with history of left humeral fracture. According to the family it happened more than a week ago. The recommendation from the ortho team as per the family is conservative management at this time. I am going to place a consult for orthopedics 08/25/2018 patient has a left humeral fracture a few weeks ago he follow-up with orthopedics as an outpatient recommended conservative management requested for Ortho follow-up today here. (5) Anemia Qualifiers: Anemia type: unspecified type Qualified Code(s): D64.9 - Anemia, unspecified Is this a current diagnosis for this admission?: Yes Plan: 08/24/2018-patient has history of anemia of chronic disease. Hemoglobin is 8.6. Going to follow the CBC on regular basis. 08/25/2018 patient refused blood transfusion yesterday. The patient's is okay with it. Be going to hold off on blood transfusion for now. (6) Dementia Is this a current diagnosis for this admission?: Yes Plan: 08/25/2018 patient history of dementia, he was agitated confused since yesterday he was placed on restraints. He was also looks confused this morning but he knows where i asked him specifically where he is at he said he was at [facility]. - Time Time Spent with patient: 15-24 minutes Medications reviewed and adjusted accordingly: Yes Anticipated discharge: SNF
[2018-08-25 15:10] LABS: HEMATOCRIT 24.2 % (37.9-51.0); MEAN CORPUSCULAR HGB CONC 33.2 g/dL (32.0-36.0); MEAN CORPUSCULAR VOLUME 87 fl (80-97); PLATELET COUNT 231 10^3/uL (150-450); RED BLOOD COUNT 2.77 10^6/uL (4.35-5.55); RED CELL DISTRIBUTION WIDTH 15.4 % (11.5-14.0)
[2018-08-25 15:34] LABS: ALANINE AMINOTRANSFERASE 21 U/L (21-72); ALBUMIN 2.6 g/dL (3.5-5.0); ALKALINE PHOSPHATASE 79 U/L (38-126); ASPARTATE AMINO TRANSFERASE 31 U/L (17-59); BILIRUBIN,DIRECT 0.2 mg/dL (0.0-0.4); BILIRUBIN,TOTAL 0.5 mg/dL (0.2-1.3); BLOOD UREA NITROGEN 31 mg/dL (7-20); CALCIUM 8.3 mg/dL (8.4-10.2); CHLORIDE 91 mmol/L (98-107); GLUCOSE 160 mg/dL (75-110); POTASSIUM 3.5 mmol/L (3.6-5.0); SODIUM 139.5 mmol/L (137-145)
[2018-08-25 15:43] LABS: ABSOLUTE LYMPHOCYTES# (MANUAL) 0.3 10^3/uL (0.5-4.7); ABSOLUTE MONOCYTES # (MANUAL) 0.2 10^3/uL (0.1-1.4); ABSOLUTE NEUTROPHILS# (MANUAL) 7.5 10^3/uL (1.7-8.2); BASOPHILS % (MANUAL) 0 % (0-2); EOSINOPHILS % (MANUAL) 0 % (0-6); LYMPHOCYTES % (MANUAL) 4 % (13-45); MONOCYTES % (MANUAL) 2 % (3-13); SEGMENTED NEUTROPHILS % (MAN) 94 % (42-78); TOTAL CELLS COUNTED 100
[2018-08-25 15:45] LABS: ANISOCYTOSIS SLIGHT; PLATELET COMMENT ADEQUATE; TOXIC GRANULATION SLIGHT
[2018-08-25 16:12] LABS: ANION GAP 8 (5-19); CARBON DIOXIDE 41 mmol/L (22-30)
[2018-08-25] MEDS: ATORVASTATIN CALCIUM 10 MG TABLET PO SCH (21:51)
[2018-08-25] MEDS: TAMSULOSIN HCL 0.4 MG CAP.SR.24H PO SCH (21:51)
[2018-08-26] MEDS: LEVALBUTEROL HCL NEB 1.25 MG/3 ML AMPUL NEB SCH ×3 (00:18→16:18)
[2018-08-26] MEDS: DILTIAZEM HCL 60 MG TABLET PO SCH ×3 (05:21→22:16)
[2018-08-26] MEDS: CALCIUM CARBONATE 250 MG/VITAMIN D3 125 UNIT TABLET PO SCH (08:47)
[2018-08-26] MEDS: LANSOPRAZOLE 15 MG TAB.RAP.DR PO SCH (08:47)
[2018-08-26] MEDS: CETIRIZINE 10 MG TABLET PO SCH (08:47)
[2018-08-26] MEDS: FINASTERIDE 5 MG TABLET PO SCH (08:47)
[2018-08-26] MEDS: METHYLPREDNISOLONE INJ 125 MG/2 ML SDV IV SCH (10:06)
[2018-08-26] MEDS: GUAIFENESIN 600 MG TABLET.SA PO SCH ×2 (10:16→22:16)
[2018-08-26] MEDS: SALMETEROL XINAFOATE DISKUS 50 MCG/1 DOSE 28 DOSE IH SCH ×2 (10:16→22:13)
[2018-08-26] MEDS: FAMOTIDINE 20 MG TABLET PO SCH ×2 (10:16→17:09)
[2018-08-26] MEDS: DOCUSATE SODIUM 100 MG CAPSULE PO SCH ×2 (10:16→17:09)
[2018-08-26] MEDS: ENOXAPARIN SODIUM INJ 40 MG/0.4 ML DISP.SYRIN SUBCUT SCH (10:17)
[2018-08-26] MEDS: PHOSPHORUS #1 250 MG TABLET PO SCH ×2 (10:17→17:10)
[2018-08-26] MEDS: IPRATROPIUM/ALBUTEROL 120 PUFF/4 GM MDI IH SCH ×4 (10:18→22:16)
[2018-08-26] MEDS: FUROSEMIDE 20 MG TABLET PO SCH ×2 (10:19→17:09)
[2018-08-26] MEDS: CEFTRIAXONE SODIUM 1,000 MG in DEXTROSE 5%-WATER 50 ML IV SCH (10:20)
--- NOTE | 2018-08-26 11:50 | PDOC PROGRESS REPORT ---
Subjective Progress Note for:: 08/26/18 Subjective:: 88-year-old male referred from the senior living for abnormal rhythm in the emergency room he was found to be in atrial tachycardia and also was in shortness of breath we admitted him for abnormal heart rhythm management. Last night patient was confused he was placed on restraints. Because he is tried to pull off his BiPAP. He refused blood and unit of blood transfusion yesterday. Today he still looks like confused but not agitated. Family members at bedside. His pulse ox is on 3 L is 98%. Afebrile. 08/26/2018 patient is more comfortable in the bed is not in distress is not anxious is not agitated he does not need any BiPAP anymore. Restraints are taken off. Pulse ox is 98% on 2 L. No acute events in the last 24 hours. Reason For Visit: PAROXYSMAL ATRIAL TACHYCARDIA Physical Exam Vital Signs: Temp Pulse Resp BP Pulse Ox 97.5 F 90 20 100/52 L 98 08/26/18 07:47 08/26/18 07:48 08/26/18 07:48 08/26/18 07:47 08/26/18 07:48 Intake & Output 08/25/18 08/26/18 08/27/18 06:59 06:59 06:59 Intake Total 255 872 Output Total 700 1700 Balance -445 -828 Weight 93.3 kg 90.4 kg General appearance: PRESENT: no acute distress Head exam: PRESENT: atraumatic Eye exam: PRESENT: PERRLA Neck exam: ABSENT: carotid bruit, JVD, lymphadenopathy, thyromegaly Respiratory exam: PRESENT: decreased breath sounds Cardiovascular exam: PRESENT: RRR, tachycardia. ABSENT: diastolic murmur, rubs , systolic murmur GI/Abdominal exam: PRESENT: normal bowel sounds, soft. ABSENT: distended, guarding, mass, organolmegaly, rebound, tenderness Neurological exam: PRESENT: alert, awake, oriented to person, oriented to place , oriented to time, oriented to situation, CN II-XII grossly intact. ABSENT: motor sensory deficit Psychiatric exam: PRESENT: appropriate affect, normal mood. ABSENT: homicidal ideation, suicidal ideation Results Laboratory Results: 08/25/18 14:28 08/25/18 14:28 08/25/18 08/25/18 14:28 14:28 WBC 8.0 RBC 2.77 L Hgb 8.0 L Hct 24.2 L MCV 87 MCH 29.0 MCHC 33.2 RDW 15.4 H Plt Count 231 Seg Neutrophils % Not Reportable Lymphocytes % Not Reportable Monocytes % Not Reportable Eosinophils % Not Reportable Basophils % Not Reportable Absolute Neutrophils Not Reportable Absolute Lymphocytes Not Reportable Absolute Monocytes Not Reportable Absolute Eosinophils Not Reportable Absolute Basophils Not Reportable Sodium 139.5 Potassium 3.5 L Chloride 91 L Carbon Dioxide 41 H* Anion Gap 8 BUN 31 H Creatinine 0.61 Est GFR ( Amer) > 60 Est GFR (Non-Af Amer) > 60 Glucose 160 H Calcium 8.3 L Magnesium 1.5 L Total Bilirubin 0.5 AST 31 ALT 21 Alkaline Phosphatase 79 Total Protein 5.0 L Albumin 2.6 L Impressions: Chest X-Ray 08/24/18 07:29 IMPRESSION: No acute abnormality of the lungs in AP projection. No focal airspace opacity. Assessment & Plan - Diagnosis (1) Tachycardia Is this a current diagnosis for this admission?: Yes Plan: 08/24/2018-this elderly patient with history of COPD congestive heart failure coronary artery disease referred from senior living for abnormal lithium and in the ER the heart rate in the 120s given IV metoprolol 5 mg and rate was relatively controlled. The plan plan is to do the cardiac enzymes x3, echocardiogram, and cardiology consult. I placed patient on metoprolol 25 mg p.o. twice daily. So far 2 sets of troponins are borderline 0.017. She denies any chest pain. Order for the EKG. first EKG shows sinus tachycardia with intermittent PACs. 08/25/2018 cardiology consult was placed yesterday I discussed the care with Dr. House he thinks patient has MAT 30 is multi focal atrial tachycardia. Patient was started on Cardizem yesterday. Cardizem 60 mg p.o. every 8 hours. Rate today is 94 he is in sinus tach rhythm. We will continue the present management. 08/26/2018, patient has multifocal atrial tachycardia. May be secondary to underlying COPD. He was on Cardizem 60 mg p.o. every 8 hours. We will continue the present management. (2) COPD with exacerbation Is this a current diagnosis for this admission?: Yes Plan: 08/24/2018-patient has a long history of COPD came in with COPD exacerbation with increasing shortness of breath. VBG shows PCO2 of 91%. I placed the order for BiPAP as needed, albuterol nebulizations every 6 as needed, Xopenex nebulizations every 8 hours, flutter valve, IV Solu-Medrol 125 mg every 8 hours. Also placed him on prophylactic antibiotics ceftriaxone 1 g daily. 08/25/2018-patient has a long history of COPD came in with exacerbation of shortness of breath. He has hypercapnia. VBG shows PCO2 of 91. Yesterday's labs CO2 is 41. To repeat the labs today. 08/26/2018 patient is off the BiPAP since last night. He is on 2 L nasal cannula and pulse ox is 98%. On examination chest bilateral entry was severely decreased with minimal wheezes. He will have a problem with CO2 retention. Requested for ABG today. I decreased IV Solu-Medrol to 40 mg every 12 hours. (3) BPH (benign prostatic hyperplasia) Qualifiers: Lower urinary tract symptom presence: unspecified whether lower urinary tract symptoms present Qualified Code(s): N40.0 - Benign prostatic hyperplasia without lower urinary tract symptoms Is this a current diagnosis for this admission?: Yes Plan: 08/24/2018-patient has a chronic history of COPD, Thompson's cath was placed in the ER 1800 mL of urine voided. We are going to keep the Thompson for now. 08/25/2018 patient has history of BPH. He was a Thompson's catheter. Plan to keep the Thompson's catheter during this hospital stay. 08/26/2018 patient has a Thompson's catheter. No problems. Probably he needs to go back to senior living with Thompson catheter. Because of the persistent urinary retention. (4) Humerus fracture Is this a current diagnosis for this admission?: Yes Plan: 08/24/2018-patient came in with history of left humeral fracture. According to the family it happened more than a week ago. The recommendation from the ortho team as per the family is conservative management at this time. I am going to place a consult for orthopedics 08/25/2018 patient has a left humeral fracture a few weeks ago he follow-up with orthopedics as an outpatient recommended conservative management requested for Ortho follow-up today here. All 2017 patient has history of humaral fracture 1 week prior to hospital arrival going to request for the consult give their opinion. (5) Anemia Qualifiers: Anemia type: unspecified type Qualified Code(s): D64.9 - Anemia, unspecified Is this a current diagnosis for this admission?: Yes Plan: 08/24/2018-patient has history of anemia of chronic disease. Hemoglobin is 8.6. Going to follow the CBC on regular basis. 08/25/2018 patient refused blood transfusion yesterday. The patient's is okay with it. Be going to hold off on blood transfusion for now. 08/26/2018-patient's hemoglobin is 8.6 today. Stable. We will continue to check CBC on daily basis. (6) Dementia Is this a current diagnosis for this admission?: Yes Plan: 08/25/2018 patient history of dementia, he was agitated confused since yesterday he was placed on restraints. He was also looks confused this morning but he knows where i asked him specifically where he is at he said he was at [facility]. 08 30 2018-patient has history of dementia, patient is much more awake and alert and communicating very well today. - Time Time Spent with patient: 15-24 minutes Medications reviewed and adjusted accordingly: Yes Anticipated discharge: SNF
[2018-08-26 14:33] LABS: ARTERIAL BLOOD BASE EXCESS 15.1 mmol/L; ARTERIAL BLOOD H2CO3 1.75 mmol/L (1.05-1.35); ARTERIAL BLOOD HCO3 40.7 mmol/L (20-24); ARTERIAL BLOOD O2 SATURATION 97.6 % (94-98); ARTERIAL BLOOD PH 7.46 (7.35-7.45); ARTERIAL BLOOD PO2 97.5 mmHg (80-100); ARTERIAL BLOOD TOTAL CO2 42.5 mmol/L (23-27)
[2018-08-26 14:34] LABS: ARTERIAL BLOOD FIO2 2NC
[2018-08-26] MEDS: METHYLPREDNISOLONE INJ 40 MG/1 ML SDV IV SCH (22:13)
[2018-08-26] MEDS: ATORVASTATIN CALCIUM 10 MG TABLET PO SCH (22:16)
[2018-08-26] MEDS: TAMSULOSIN HCL 0.4 MG CAP.SR.24H PO SCH (22:16)
[2018-08-27] MEDS: LEVALBUTEROL HCL NEB 1.25 MG/3 ML AMPUL NEB SCH ×3 (00:53→16:37)
[2018-08-27 05:35] LABS: HEMATOCRIT 25.8 % (37.9-51.0); HEMOGLOBIN 8.5 g/dL (13.5-17.0); MEAN CORPUSCULAR HGB CONC 33.2 g/dL (32.0-36.0); MEAN CORPUSCULAR VOLUME 87 fl (80-97); PLATELET COUNT 253 10^3/uL (150-450); RED BLOOD COUNT 2.95 10^6/uL (4.35-5.55); RED CELL DISTRIBUTION WIDTH 15.6 % (11.5-14.0); WHITE BLOOD COUNT 10.5 10^3/uL (4.0-10.5)
[2018-08-27 05:45] LABS: ALANINE AMINOTRANSFERASE 48 U/L (21-72); ALBUMIN 2.7 g/dL (3.5-5.0); ALKALINE PHOSPHATASE 82 U/L (38-126); ASPARTATE AMINO TRANSFERASE 46 U/L (17-59); BILIRUBIN,DIRECT 0.4 mg/dL (0.0-0.4); BILIRUBIN,TOTAL 0.8 mg/dL (0.2-1.3); BLOOD UREA NITROGEN 32 mg/dL (7-20); CALCIUM 8.5 mg/dL (8.4-10.2); CHLORIDE 93 mmol/L (98-107); GLUCOSE 142 mg/dL (75-110); POTASSIUM 4.2 mmol/L (3.6-5.0); SODIUM 138.8 mmol/L (137-145); TOTAL PROTEIN 5.1 g/dL (6.3-8.2)
[2018-08-27 05:59] LABS: ABSOLUTE LYMPHOCYTES# (MANUAL) 0.1 10^3/uL (0.5-4.7); ABSOLUTE MONOCYTES # (MANUAL) 0.2 10^3/uL (0.1-1.4); ABSOLUTE NEUTROPHILS# (MANUAL) 10.2 10^3/uL (1.7-8.2); ANISOCYTOSIS 1+; BAND NEUTROPHILS % (MANUAL) 1 % (3-5); BASOPHILS % (MANUAL) 0 % (0-2); EOSINOPHILS % (MANUAL) 0 % (0-6); LYMPHOCYTES % (MANUAL) 1 % (13-45); MONOCYTES % (MANUAL) 2 % (3-13); SEGMENTED NEUTROPHILS % (MAN) 96 % (42-78); TOTAL CELLS COUNTED 100; TOXIC GRANULATION SLIGHT
[2018-08-27 06:00] LABS: PLATELET COMMENT ADEQUATE
[2018-08-27 06:06] LABS: CARBON DIOXIDE 45 mmol/L (22-30)
[2018-08-27 06:30] LABS: ANION GAP 1 (5-19)
[2018-08-27] MEDS: DILTIAZEM HCL 60 MG TABLET PO SCH ×3 (06:34→22:30)
[2018-08-27] MEDS: CALCIUM CARBONATE 250 MG/VITAMIN D3 125 UNIT TABLET PO SCH (08:55)
[2018-08-27] MEDS: FINASTERIDE 5 MG TABLET PO SCH (08:55)
[2018-08-27] MEDS: CETIRIZINE 10 MG TABLET PO SCH (08:55)
[2018-08-27] MEDS: LANSOPRAZOLE 15 MG TAB.RAP.DR PO SCH (08:55)
[2018-08-27] MEDS: GUAIFENESIN 600 MG TABLET.SA PO SCH ×2 (09:01→22:30)
[2018-08-27] MEDS: DOCUSATE SODIUM 100 MG CAPSULE PO SCH ×2 (09:02→17:37)
[2018-08-27] MEDS: ENOXAPARIN SODIUM INJ 40 MG/0.4 ML DISP.SYRIN SUBCUT SCH (09:03)
[2018-08-27] MEDS: IPRATROPIUM/ALBUTEROL 120 PUFF/4 GM MDI IH SCH ×4 (09:03→22:26)
[2018-08-27] MEDS: PHOSPHORUS #1 250 MG TABLET PO SCH ×2 (09:03→17:37)
[2018-08-27] MEDS: FAMOTIDINE 20 MG TABLET PO SCH ×2 (09:03→17:36)
[2018-08-27] MEDS: FUROSEMIDE 20 MG TABLET PO SCH ×2 (09:03→17:38)
[2018-08-27] MEDS: SALMETEROL XINAFOATE DISKUS 50 MCG/1 DOSE 28 DOSE IH SCH ×2 (09:04→22:29)
[2018-08-27] MEDS: CEFTRIAXONE SODIUM 1,000 MG in DEXTROSE 5%-WATER 50 ML IV SCH (09:05)
[2018-08-27] MEDS: METHYLPREDNISOLONE INJ 40 MG/1 ML SDV IV SCH (09:56)
--- NOTE | 2018-08-27 13:22 | PDOC PROGRESS REPORT ---
Subjective Progress Note for:: 08/27/18 Subjective:: 88-year-old male referred from the long-term for abnormal rhythm in the emergency room he was found to be in atrial tachycardia and also was in shortness of breath we admitted him for abnormal heart rhythm management. Last night patient was confused he was placed on restraints. Because he is tried to pull off his BiPAP. He refused blood and unit of blood transfusion yesterday. Today he still looks like confused but not agitated. Family members at bedside. His pulse ox is on 3 L is 98%. Afebrile. 08/26/2018 patient is more comfortable in the bed is not in distress is not anxious is not agitated he does not need any BiPAP anymore. Restraints are taken off. Pulse ox is 98% on 2 L. No acute events in the last 24 hours. 08/27/2018 patient is comfortably in the bed not in distress but nurse told me patient looks more tired today compared to yesterday. On questioning patient says she is doing fine denies any problems able to tell me where he is yet. Afebrile. Reason For Visit: PAROXYSMAL ATRIAL TACHYCARDIA Physical Exam Vital Signs: Temp Pulse Resp BP Pulse Ox 97.6 F 76 18 122/67 92 08/27/18 12:00 08/27/18 12:00 08/27/18 12:00 08/27/18 12:00 08/27/18 09:08 Intake & Output 08/26/18 08/27/18 08/28/18 06:59 06:59 06:59 Intake Total 872 824 50 Output Total 1700 1900 Balance -828 -1076 50 Weight 90.4 kg 89.6 kg General appearance: PRESENT: no acute distress Head exam: PRESENT: atraumatic Eye exam: PRESENT: PERRLA Mouth exam: PRESENT: dry mucosa Neck exam: ABSENT: carotid bruit, JVD, lymphadenopathy, thyromegaly Respiratory exam: PRESENT: decreased breath sounds Cardiovascular exam: PRESENT: RRR. ABSENT: diastolic murmur, rubs, systolic murmur GI/Abdominal exam: PRESENT: normal bowel sounds, soft. ABSENT: distended, guarding, mass, organolmegaly, rebound, tenderness Extremities exam: PRESENT: full ROM. ABSENT: calf tenderness, clubbing, pedal edema Neurological exam: PRESENT: alert, awake, oriented to person, oriented to place , oriented to time, oriented to situation, CN II-XII grossly intact. ABSENT: motor sensory deficit Psychiatric exam: PRESENT: appropriate affect, normal mood. ABSENT: homicidal ideation, suicidal ideation Results Laboratory Results: 08/27/18 04:33 08/27/18 04:33 08/26/18 08/27/18 08/27/18 14:10 04:33 04:33 WBC 10.5 RBC 2.95 L Hgb 8.5 L Hct 25.8 L MCV 87 MCH 29.0 MCHC 33.2 RDW 15.6 H Plt Count 253 Seg Neutrophils % Not Reportable Lymphocytes % Not Reportable Monocytes % Not Reportable Eosinophils % Not Reportable Basophils % Not Reportable Absolute Neutrophils Not Reportable Absolute Lymphocytes Not Reportable Absolute Monocytes Not Reportable Absolute Eosinophils Not Reportable Absolute Basophils Not Reportable Carbonic Acid 1.75 H HCO3/H2CO3 Ratio 23:1 ABG pH 7.46 H ABG pCO2 58.0 H ABG pO2 97.5 ABG HCO3 40.7 H ABG O2 Saturation 97.6 ABG Base Excess 15.1 FiO2 2NC Sodium 138.8 Potassium 4.2 Chloride 93 L Carbon Dioxide 45 H* Anion Gap 1 L BUN 32 H Creatinine 0.65 Est GFR ( Amer) > 60 Est GFR (Non-Af Amer) > 60 Glucose 142 H Calcium 8.5 Magnesium 1.7 Total Bilirubin 0.8 AST 46 ALT 48 Alkaline Phosphatase 82 Total Protein 5.1 L Albumin 2.7 L Impressions: Chest X-Ray 08/24/18 07:29 IMPRESSION: No acute abnormality of the lungs in AP projection. No focal airspace opacity. Assessment & Plan - Diagnosis (1) Tachycardia Is this a current diagnosis for this admission?: Yes Plan: 08/24/2018-this elderly patient with history of COPD congestive heart failure coronary artery disease referred from long-term for abnormal lithium and in the ER the heart rate in the 120s given IV metoprolol 5 mg and rate was relatively controlled. The plan plan is to do the cardiac enzymes x3, echocardiogram, and cardiology consult. I placed patient on metoprolol 25 mg p.o. twice daily. So far 2 sets of troponins are borderline 0.017. She denies any chest pain. Order for the EKG. first EKG shows sinus tachycardia with intermittent PACs. 08/25/2018 cardiology consult was placed yesterday I discussed the care with Dr. House he thinks patient has MAT 30 is multi focal atrial tachycardia. Patient was started on Cardizem yesterday. Cardizem 60 mg p.o. every 8 hours. Rate today is 94 he is in sinus tach rhythm. We will continue the present management. 08/26/2018, patient has multifocal atrial tachycardia. May be secondary to underlying COPD. He was on Cardizem 60 mg p.o. every 8 hours. We will continue the present management. 08/27/2018 patient's heart rate is in sinus rhythm right now heart rate is 72. He is on Cardizem 60 mg subcu p.o. every 8 hours. At the time of admission he has multifocal atrial tachycardia. Plan is to continue the present management. (2) COPD with exacerbation Is this a current diagnosis for this admission?: Yes Plan: 08/24/2018-patient has a long history of COPD came in with COPD exacerbation with increasing shortness of breath. VBG shows PCO2 of 91%. I placed the order for BiPAP as needed, albuterol nebulizations every 6 as needed, Xopenex nebulizations every 8 hours, flutter valve, IV Solu-Medrol 125 mg every 8 hours. Also placed him on prophylactic antibiotics ceftriaxone 1 g daily. 08/25/2018-patient has a long history of COPD came in with exacerbation of shortness of breath. He has hypercapnia. VBG shows PCO2 of 91. Yesterday's labs CO2 is 41. To repeat the labs today. 08/26/2018 patient is off the BiPAP since last night. He is on 2 L nasal cannula and pulse ox is 98%. On examination chest bilateral entry was severely decreased with minimal wheezes. He will have a problem with CO2 retention. Requested for ABG today. I decreased IV Solu-Medrol to 40 mg every 12 hours. 08/27/2018-pulse ox on 2 L is 93%. Patient using the BiPAP in the night. Examination chest bilateral decreased symmetrically. But no wheezing no crepitations. He is on Solu-Medrol 40 mg daily. Latest ABG pH is 7.46, PCO2 58 , PO2 97, bicarb is 40. Hypercapnia is resolving. (3) BPH (benign prostatic hyperplasia) Qualifiers: Lower urinary tract symptom presence: unspecified whether lower urinary tract symptoms present Qualified Code(s): N40.0 - Benign prostatic hyperplasia without lower urinary tract symptoms Is this a current diagnosis for this admission?: Yes Plan: 08/24/2018-patient has a chronic history of COPD, Thompson's cath was placed in the ER 1800 mL of urine voided. We are going to keep the Thompson for now. 08/25/2018 patient has history of BPH. He was a Thompson's catheter. Plan to keep the Thompson's catheter during this hospital stay. 08/26/2018 patient has a Thompson's catheter. No problems. Probably he needs to go back to long-term with Thompson catheter. Because of the persistent urinary retention. 08/27/2018-patient has a problem with urinary retention secondary to BPH. We are going to keep the Thompson's catheter for now. (4) Humerus fracture Is this a current diagnosis for this admission?: Yes Plan: 08/24/2018-patient came in with history of left humeral fracture. According to the family it happened more than a week ago. The recommendation from the ortho team as per the family is conservative management at this time. I am going to place a consult for orthopedics 08/25/2018 patient has a left humeral fracture a few weeks ago he follow-up with orthopedics as an outpatient recommended conservative management requested for Ortho follow-up today here. All 2017 patient has history of humaral fracture 1 week prior to hospital arrival going to request for the consult give their opinion. (5) Anemia Qualifiers: Anemia type: unspecified type Qualified Code(s): D64.9 - Anemia, unspecified Is this a current diagnosis for this admission?: Yes Plan: 08/24/2018-patient has history of anemia of chronic disease. Hemoglobin is 8.6. Going to follow the CBC on regular basis. 08/25/2018 patient refused blood transfusion yesterday. The patient's is okay with it. Be going to hold off on blood transfusion for now. 08/26/2018-patient's hemoglobin is 8.6 today. Stable. We will continue to check CBC on daily basis. 08/27 2018 hemoglobin is 8.5 stable. (6) Dementia Is this a current diagnosis for this admission?: Yes Plan: 08/25/2018 patient history of dementia, he was agitated confused since yesterday he was placed on restraints. He was also looks confused this morning but he knows where i asked him specifically where he is at he said he was at [facility]. 08 27 2018-patient has history of dementia, patient is much more awake and alert and communicating very well today. 08/27/2018-patient has history of dementia, he is less alert left-sided awake compared to yesterday. We will continue to follow him on a regular basis. - Time Time Spent with patient: 15-24 minutes Medications reviewed and adjusted accordingly: Yes Anticipated discharge: SNF
[2018-08-27] MEDS: ATORVASTATIN CALCIUM 10 MG TABLET PO SCH (22:30)
[2018-08-27] MEDS: TAMSULOSIN HCL 0.4 MG CAP.SR.24H PO SCH (22:30)
[2018-08-28] MEDS: LEVALBUTEROL HCL NEB 1.25 MG/3 ML AMPUL NEB SCH ×3 (00:16→15:44)
[2018-08-28] MEDS: DILTIAZEM HCL 60 MG TABLET PO SCH ×3 (06:39→21:41)
[2018-08-28] MEDS: PHOSPHORUS #1 250 MG TABLET PO SCH ×2 (09:16→17:00)
[2018-08-28] MEDS: SALMETEROL XINAFOATE DISKUS 50 MCG/1 DOSE 28 DOSE IH SCH ×2 (09:17→21:40)
[2018-08-28] MEDS: IPRATROPIUM/ALBUTEROL 120 PUFF/4 GM MDI IH SCH ×4 (09:17→21:40)
[2018-08-28] MEDS: CEFTRIAXONE SODIUM 1,000 MG in DEXTROSE 5%-WATER 50 ML IV SCH (09:19)
[2018-08-28] MEDS: ENOXAPARIN SODIUM INJ 40 MG/0.4 ML DISP.SYRIN SUBCUT SCH (09:23)
[2018-08-28] MEDS: LANSOPRAZOLE 15 MG TAB.RAP.DR PO SCH (09:24)
[2018-08-28] MEDS: FAMOTIDINE 20 MG TABLET PO SCH ×2 (09:24→17:01)
[2018-08-28] MEDS: FUROSEMIDE 20 MG TABLET PO SCH ×2 (09:24→17:00)
[2018-08-28] MEDS: GUAIFENESIN 600 MG TABLET.SA PO SCH ×2 (09:24→21:40)
[2018-08-28] MEDS: DOCUSATE SODIUM 100 MG CAPSULE PO SCH ×2 (09:24→17:00)
[2018-08-28] MEDS: CETIRIZINE 10 MG TABLET PO SCH (09:25)
[2018-08-28] MEDS: FINASTERIDE 5 MG TABLET PO SCH (09:25)
[2018-08-28] MEDS: METHYLPREDNISOLONE INJ 40 MG/1 ML SDV IV SCH (09:25)
[2018-08-28] MEDS: CALCIUM CARBONATE 250 MG/VITAMIN D3 125 UNIT TABLET PO SCH (09:25)
--- NOTE | 2018-08-28 14:50 | PDOC PROGRESS REPORT ---
Subjective Progress Note for:: 08/28/18 Subjective:: 88-year-old male referred from the shelter for abnormal rhythm in the emergency room he was found to be in atrial tachycardia and also was in shortness of breath we admitted him for abnormal heart rhythm management. Last night patient was confused he was placed on restraints. Because he is tried to pull off his BiPAP. He refused blood and unit of blood transfusion yesterday. Today he still looks like confused but not agitated. Family members at bedside. His pulse ox is on 3 L is 98%. Afebrile. 08/26/2018 patient is more comfortable in the bed is not in distress is not anxious is not agitated he does not need any BiPAP anymore. Restraints are taken off. Pulse ox is 98% on 2 L. No acute events in the last 24 hours. 08/27/2018 patient is comfortably in the bed not in distress but nurse told me patient looks more tired today compared to yesterday. On questioning patient says she is doing fine denies any problems able to tell me where he is yet. Afebrile. 08/28/2018 patient is comfortably in the bed not in distress no acute events in the last 24 hours. He is afebrile. He has history of dementia but able to tell me the location of these now his name but is unable to give his date of . Reason For Visit: PAROXYSMAL ATRIAL TACHYCARDIA Physical Exam Vital Signs: Temp Pulse Resp BP Pulse Ox 97.5 F 91 17 145/92 H 94 08/28/18 08:10 08/28/18 08:42 08/28/18 08:42 08/28/18 08:10 08/28/18 08:42 Intake & Output 08/27/18 08/28/18 08/29/18 06:59 06:59 06:59 Intake Total 824 410 Output Total 1900 750 Balance -1076 -340 Weight 89.6 kg 90.2 kg General appearance: PRESENT: no acute distress Head exam: PRESENT: atraumatic Eye exam: PRESENT: PERRLA Mouth exam: PRESENT: moist Neck exam: ABSENT: carotid bruit, JVD, lymphadenopathy, thyromegaly Respiratory exam: PRESENT: decreased breath sounds Cardiovascular exam: PRESENT: RRR. ABSENT: diastolic murmur, rubs, systolic murmur GI/Abdominal exam: PRESENT: normal bowel sounds, soft. ABSENT: distended, guarding, mass, organolmegaly, rebound, tenderness Neurological exam: PRESENT: alert, awake, oriented to person, oriented to place , oriented to time, oriented to situation, CN II-XII grossly intact. ABSENT: motor sensory deficit Psychiatric exam: PRESENT: appropriate affect, normal mood. ABSENT: homicidal ideation, suicidal ideation Results Laboratory Results: 08/27/18 04:33 08/27/18 04:33 Impressions: Chest X-Ray 08/24/18 07:29 IMPRESSION: No acute abnormality of the lungs in AP projection. No focal airspace opacity. Assessment & Plan - Diagnosis (1) Tachycardia Is this a current diagnosis for this admission?: Yes Plan: 08/24/2018-this elderly patient with history of COPD congestive heart failure coronary artery disease referred from shelter for abnormal lithium and in the ER the heart rate in the 120s given IV metoprolol 5 mg and rate was relatively controlled. The plan plan is to do the cardiac enzymes x3, echocardiogram, and cardiology consult. I placed patient on metoprolol 25 mg p.o. twice daily. So far 2 sets of troponins are borderline 0.017. She denies any chest pain. Order for the EKG. first EKG shows sinus tachycardia with intermittent PACs. 08/25/2018 cardiology consult was placed yesterday I discussed the care with Dr. House he thinks patient has MAT 30 is multi focal atrial tachycardia. Patient was started on Cardizem yesterday. Cardizem 60 mg p.o. every 8 hours. Rate today is 94 he is in sinus tach rhythm. We will continue the present management. 08/26/2018, patient has multifocal atrial tachycardia. May be secondary to underlying COPD. He was on Cardizem 60 mg p.o. every 8 hours. We will continue the present management. 08/27/2018 patient's heart rate is in sinus rhythm right now heart rate is 72. He is on Cardizem 60 mg subcu p.o. every 8 hours. At the time of admission he has multifocal atrial tachycardia. Plan is to continue the present management. 08/28/2018 patient has multifocal atrial tachycardia he was started on Cardizem 60 mg p.o. every 8 hours his heart rate today 91 sinus rhythm. (2) COPD with exacerbation Is this a current diagnosis for this admission?: Yes Plan: 08/24/2018-patient has a long history of COPD came in with COPD exacerbation with increasing shortness of breath. VBG shows PCO2 of 91%. I placed the order for BiPAP as needed, albuterol nebulizations every 6 as needed, Xopenex nebulizations every 8 hours, flutter valve, IV Solu-Medrol 125 mg every 8 hours. Also placed him on prophylactic antibiotics ceftriaxone 1 g daily. 08/25/2018-patient has a long history of COPD came in with exacerbation of shortness of breath. He has hypercapnia. VBG shows PCO2 of 91. Yesterday's labs CO2 is 41. To repeat the labs today. 08/26/2018 patient is off the BiPAP since last night. He is on 2 L nasal cannula and pulse ox is 98%. On examination chest bilateral entry was severely decreased with minimal wheezes. He will have a problem with CO2 retention. Requested for ABG today. I decreased IV Solu-Medrol to 40 mg every 12 hours. 08/27/2018-pulse ox on 2 L is 93%. Patient using the BiPAP in the night. Examination chest bilateral decreased symmetrically. But no wheezing no crepitations. He is on Solu-Medrol 40 mg daily. Latest ABG pH is 7.46, PCO2 58 , PO2 97, bicarb is 40. Hypercapnia is resolving. 08/28/2018 patient is comfortably in the bed on 2 L oxygen Socks is 94%. Chest examination bilaterality was decreased but no wheezing no crepitations. Nebulizations as a as needed basis. Patient's pulse ox is stable so he was not placed on BiPAP last night (3) BPH (benign prostatic hyperplasia) Qualifiers: Lower urinary tract symptom presence: unspecified whether lower urinary tract symptoms present Qualified Code(s): N40.0 - Benign prostatic hyperplasia without lower urinary tract symptoms Is this a current diagnosis for this admission?: Yes Plan: 08/24/2018-patient has a chronic history of COPD, Thompson's cath was placed in the ER 1800 mL of urine voided. We are going to keep the Thompson for now. 08/25/2018 patient has history of BPH. He was a Thompson's catheter. Plan to keep the Thompson's catheter during this hospital stay. 08/26/2018 patient has a Thompson's catheter. No problems. Probably he needs to go back to shelter with Thompson catheter. Because of the persistent urinary retention. 08/27/2018-patient has a problem with urinary retention secondary to BPH. We are going to keep the Thompson's catheter for now. 08/28/2018-patient has a Thompson's catheter because of the urinary retention probably he will go back to shelter with it. (4) Humerus fracture Is this a current diagnosis for this admission?: Yes (5) Anemia Qualifiers: Anemia type: unspecified type Qualified Code(s): D64.9 - Anemia, unspecified Is this a current diagnosis for this admission?: Yes Plan: 08/24/2018-patient has history of anemia of chronic disease. Hemoglobin is 8.6. Going to follow the CBC on regular basis. 08/25/2018 patient refused blood transfusion yesterday. The patient's is okay with it. Be going to hold off on blood transfusion for now. 08/26/2018-patient's hemoglobin is 8.6 today. Stable. We will continue to check CBC on daily basis. 08/27 2018 hemoglobin is 8.5 stable. 2017 patient's hemoglobin is 8.5 stable he refused blood transfusion during the hospital stay. (6) Dementia Qualifiers: Dementia type: unspecified type Is this a current diagnosis for this admission?: Yes Plan: 08/25/2018 patient history of dementia, he was agitated confused since yesterday he was placed on restraints. He was also looks confused this morning but he knows where i asked him specifically where he is at he said he was at [facility]. 08 27 2018-patient has history of dementia, patient is much more awake and alert and communicating very well today. 08/27/2018-patient has history of dementia, he is less alert and is and awake compared to yesterday. We will continue to follow him on a regular basis. 08/28/2018 patient has history of dementia patient is alert and awake. Able to tell me the location of this place his name but unable to give the date of . - Time Time Spent with patient: Less than 15 minutes Medications reviewed and adjusted accordingly: Yes Anticipated discharge: SNF
[2018-08-28] MEDS: TAMSULOSIN HCL 0.4 MG CAP.SR.24H PO SCH (21:40)
[2018-08-28] MEDS: ATORVASTATIN CALCIUM 10 MG TABLET PO SCH (21:40)
[2018-08-29] MEDS: LEVALBUTEROL HCL NEB 1.25 MG/3 ML AMPUL NEB SCH ×3 (00:13→15:59)
[2018-08-29] MEDS: DILTIAZEM HCL 60 MG TABLET PO SCH ×2 (06:20→14:12)
[2018-08-29] MEDS: FUROSEMIDE 20 MG TABLET PO SCH ×2 (10:06→18:05)
[2018-08-29] MEDS: CETIRIZINE 10 MG TABLET PO SCH (10:06)
[2018-08-29] MEDS: FINASTERIDE 5 MG TABLET PO SCH (10:06)
[2018-08-29] MEDS: GUAIFENESIN 600 MG TABLET.SA PO SCH (10:06)
[2018-08-29] MEDS: CEFTRIAXONE SODIUM 1,000 MG in DEXTROSE 5%-WATER 50 ML IV SCH (10:07)
[2018-08-29] MEDS: LANSOPRAZOLE 15 MG TAB.RAP.DR PO SCH (10:07)
[2018-08-29] MEDS: SALMETEROL XINAFOATE DISKUS 50 MCG/1 DOSE 28 DOSE IH SCH (10:07)
[2018-08-29] MEDS: IPRATROPIUM/ALBUTEROL 120 PUFF/4 GM MDI IH SCH ×3 (10:07→18:05)
[2018-08-29] MEDS: PHOSPHORUS #1 250 MG TABLET PO SCH ×2 (10:07→18:05)
[2018-08-29] MEDS: CALCIUM CARBONATE 250 MG/VITAMIN D3 125 UNIT TABLET PO SCH (10:07)
[2018-08-29] MEDS: METHYLPREDNISOLONE INJ 40 MG/1 ML SDV IV SCH (10:07)
[2018-08-29] MEDS: DOCUSATE SODIUM 100 MG CAPSULE PO SCH ×2 (10:07→18:05)
[2018-08-29] MEDS: FAMOTIDINE 20 MG TABLET PO SCH ×2 (10:08→18:05)
[2018-08-29] MEDS: ENOXAPARIN SODIUM INJ 40 MG/0.4 ML DISP.SYRIN SUBCUT SCH (10:08)
--- NOTE | 2018-08-29 15:01 | PDOC DISCHARGE SUMMARY ---
General - Admit/Disc Date/PCP Admission Date/Primary Care Provider: 08/24/18 12:25 MONTSE TOM MD Discharge Date: 08/29/18 - Discharge Diagnosis (1) Tachycardia Is this a current diagnosis for this admission?: Yes Summary: 08/24/2018-this elderly patient with history of COPD congestive heart failure coronary artery disease referred from assisted for abnormal lithium and in the ER the heart rate in the 120s given IV metoprolol 5 mg and rate was relatively controlled. The plan plan is to do the cardiac enzymes x3, echocardiogram, and cardiology consult. I placed patient on metoprolol 25 mg p.o. twice daily. So far 2 sets of troponins are borderline 0.017. She denies any chest pain. Order for the EKG. first EKG shows sinus tachycardia with intermittent PACs. 08/25/2018 cardiology consult was placed yesterday I discussed the care with Dr. House he thinks patient has MAT 30 is multi focal atrial tachycardia. Patient was started on Cardizem yesterday. Cardizem 60 mg p.o. every 8 hours. Rate today is 94 he is in sinus tach rhythm. We will continue the present management. 08/26/2018, patient has multifocal atrial tachycardia. May be secondary to underlying COPD. He was on Cardizem 60 mg p.o. every 8 hours. We will continue the present management. 08/27/2018 patient's heart rate is in sinus rhythm right now heart rate is 72. He is on Cardizem 60 mg subcu p.o. every 8 hours. At the time of admission he has multifocal atrial tachycardia. Plan is to continue the present management. 08/28/2018 patient has multifocal atrial tachycardia he was started on Cardizem 60 mg p.o. every 8 hours his heart rate today 91 sinus rhythm. 08/29/2018 patient has multifocal atrial tachycardia on Cardizem 60 mg p.o. every 8 hours he is in sinus rhythm. Cardiology evaluation was done while he was in the hospital. (2) COPD with exacerbation Is this a current diagnosis for this admission?: Yes Summary: 08/24/2018-patient has a long history of COPD came in with COPD exacerbation with increasing shortness of breath. VBG shows PCO2 of 91%. I placed the order for BiPAP as needed, albuterol nebulizations every 6 as needed, Xopenex nebulizations every 8 hours, flutter valve, IV Solu-Medrol 125 mg every 8 hours. Also placed him on prophylactic antibiotics ceftriaxone 1 g daily. 08/25/2018-patient has a long history of COPD came in with exacerbation of shortness of breath. He has hypercapnia. VBG shows PCO2 of 91. Yesterday's labs CO2 is 41. To repeat the labs today. 08/26/2018 patient is off the BiPAP since last night. He is on 2 L nasal cannula and pulse ox is 98%. On examination chest bilateral entry was severely decreased with minimal wheezes. He will have a problem with CO2 retention. Requested for ABG today. I decreased IV Solu-Medrol to 40 mg every 12 hours. 08/27/2018-pulse ox on 2 L is 93%. Patient using the BiPAP in the night. Examination chest bilateral decreased symmetrically. But no wheezing no crepitations. He is on Solu-Medrol 40 mg daily. Latest ABG pH is 7.46, PCO2 58 , PO2 97, bicarb is 40. Hypercapnia is resolving. 08/28/2018 patient is comfortably in the bed on 2 L oxygen Socks is 94%. Chest examination bilaterality was decreased but no wheezing no crepitations. Nebulizations as a as needed basis. Patient's pulse ox is stable so he was not placed on BiPAP last night 08/29/2018 patient is on 2 L oxygen via nasal cannula pulse ox is 96% today. Is not on BiPAP in the last 48 hours. He is going back to assisted on a 2 L nasal cannula. (3) BPH (benign prostatic hyperplasia) Is this a current diagnosis for this admission?: Yes Summary: 08/24/2018-patient has a chronic history of COPD, Thompson's cath was placed in the ER 1800 mL of urine voided. We are going to keep the Thompson for now. 08/25/2018 patient has history of BPH. He was a Thompson's catheter. Plan to keep the Thompson's catheter during this hospital stay. 08/26/2018 patient has a Thompson's catheter. No problems. Probably he needs to go back to assisted with Thompson catheter. Because of the persistent urinary retention. 08/27/2018-patient has a problem with urinary retention secondary to BPH. We are going to keep the Thompson's catheter for now. 08/28/2018-patient has a Thompson's catheter because of the urinary retention probably he will go back to assisted with it. 08/29/2018 patient has chronic urinary retention patient is on Thompson catheter during the hospital stay. Is going to go back to assisted with Thompson's catheter until further evaluation by the urologist. (4) Humerus fracture Is this a current diagnosis for this admission?: Yes Summary: patient came in with history of left humeral fracture. According to the family it happened more than a week ago. The recommendation from the ortho team as per the family is conservative management at this time. I am going to place a consult for orthopedics 08/29/2018 patient came in with history of left humeral fracture it happen several days prior to hospital admission he followed up with outpatient orthopedic [place]. No complications during the hospital stay. Patient is to follow-up with out the position as an outpatient. (5) Anemia Is this a current diagnosis for this admission?: Yes Summary: 08/24/2018-patient has history of anemia of chronic disease. Hemoglobin is 8.6. Going to follow the CBC on regular basis. 08/29/2018 patient has history of anemia chronic disease. His hemoglobin is stable around 8.5. (6) Dementia Is this a current diagnosis for this admission?: Yes - Additional Information Resuscitation Status: Do Not Resuscitate Discharge Diet: Cardiac Discharge Activity: Activity As Tolerated Prescriptions: Furosemide [Lasix 20 mg Tablet] 20 mg PO BID #60 tablet Furosemide [Lasix 20 mg Tablet] 20 mg PO BID #60 tablet Home Medications: Acetaminophen [Tylenol 325 mg Tablet] 650 mg PO Q6HP PRN 08/24/18 Albuterol Sulfate [Ventolin 0.083% Neb 2.5 mg/3 mL Ampul] 2.5 mg NEB Q6HP PRN Aspirin [Adult Low Dose Aspirin EC] 81 mg PO QAM 08/24/18 Atorvastatin Calcium [Lipitor 10 mg Tablet] 10 mg PO QHS 08/24/18 Calcium Citrate/Vitamin D3 [Citracal-Vit D3 200 mg-250 Tab] 2 tab PO QAM Cetirizine HCl [Zyrtec 10 mg Tablet] 10 mg PO QAM 08/24/18 Docusate Sodium [Colace 100 mg Capsule] 100 mg PO BID MDD HOLD FOR DIARRHEA 08/30 Finasteride [Proscar 5 mg Tablet] 5 mg PO QAM 08/24/18 Guaifenesin [Mucinex] 1,200 mg PO BID 08/24/18 Ipratropium/Albuterol Sulfate [Combivent Respimat 4 gm Mdi] 1 puff IH QID Omeprazole 20 mg PO [id number] 08/24/18 Ondansetron HCl [Zofran 4 mg Tablet] 4 mg PO Q6HP PRN 08/24/18 Polyethylene Glycol 3350 [Miralax Powder 17 gm/Packet] 17 gm PO DAILYP PRN 08/24 Salmeterol Xinafoate [Serevent Diskus 50 Mcg/Dose 28 Dose/Diskus] 1 puff IH BID 08/24/18 Sennosides/Docusate 8.6-50 mg [Senna Plus Tablet] 1 tab PO BIDP PRN 08/24/18 Sod Phos Di, Gregory/K Phos Gregory [Phosphorous 250 mg Tablet] 750 mg PO BID Tamsulosin HCl [Flomax 0.4 mg Cap.sr] 0.4 mg PO QHS 08/24/18 Umeclidinium Reinbeck [Incruse Ellipta] 1 puff IH QAM 08/24/18 Diltiazem HCl [Cardizem 60 mg Tablet] 60 mg PO TID #90 tablet 08/29/18 Famotidine [Pepcid 20 mg Tablet] 20 mg PO BID tablet 08/29/18 Furosemide [Lasix 20 mg Tablet] 20 mg PO BID #60 tablet 08/29/18 Furosemide [Lasix 20 mg Tablet] 20 mg PO BID #60 tablet 08/29/18 History of Present Illness History of Present Illness: RENALDO DAWSON is a 88 year old male with history of COPD on 4 L oxygen, chronic renal insufficiency, urinary retention, dementia, congestive heart failure recently admitted in the hospital here 2 weeks ago for COPD exacerbation and transferred to [facility] for acute rehab sent to the ER after the nursing staff noticed abnormal cardiac rhythm. Family is also reporting and patient is reporting increasing shortness of breath for the last few days. Patient denies any chest pains. Denies any upper respiratory tract symptoms. Denies any nausea vomiting diarrhea. Positive for constipation history. Family is also given the history that patient fell at the assisted and he has humeral fracture left side. The emergency room is found to have a heart rate of 120s 130s indicating his atrial tachycardia he was given metoprolol 5 mg IV push on the heart rate was relatively controlled after the 2 troponins were done the borderline -0.017. The ER physician thought patient may be dehydrated and was given a 500 cc normal saline bolus with the patient respiration gotten worse which was compensated by Lasix dose. From the CODE STATUS with the patient and the family that he is DNR/DNI. Hospital Course Hospital Course: 08/29/2018 this elderly male came in with shortness of breath in the ER found to have atrial tachycardia cardiology consult was done started on Cardizem he converted to sinus rhythm is going to go back to assisted on Cardizem p.o. every 8 hours. 1.shortness of breath was resolved he is on oxygen 2 L nasal cannula initially was placed on BiPAP now he does not need any BiPAP anymore. Complications during the hospital stay. Physical Exam Vital Signs: Temp Pulse Resp BP Pulse Ox 97.7 F 97 20 154/66 H 100 08/29/18 12:00 08/29/18 12:00 08/29/18 12:00 08/29/18 12:00 08/29/18 12:00 Intake & Output 08/28/18 08/29/18 08/30/18 06:59 06:59 06:59 Intake Total 410 1165 650 Output Total 750 1530 800 Balance -340 -365 -150 Weight 90.2 kg 91.2 kg General appearance: PRESENT: no acute distress Head exam: PRESENT: atraumatic Eye exam: PRESENT: PERRLA Respiratory exam: PRESENT: decreased breath sounds Cardiovascular exam: PRESENT: RRR. ABSENT: diastolic murmur, rubs, systolic murmur GI/Abdominal exam: PRESENT: normal bowel sounds, soft. ABSENT: distended, guarding, mass, organolmegaly, rebound, tenderness Neurological exam: PRESENT: alert, awake, oriented to person, oriented to place , oriented to time, oriented to situation, CN II-XII grossly intact. ABSENT: motor sensory deficit Psychiatric exam: PRESENT: appropriate affect, normal mood. ABSENT: homicidal ideation, suicidal ideation Results Laboratory Results: 08/27/18 04:33 08/27/18 04:33 Impressions: Chest X-Ray 08/24/18 07:29 IMPRESSION: No acute abnormality of the lungs in AP projection. No focal airspace opacity. Qualifiers - * PATIENT BEING DISCHARGED WITH ANY OF THE FOLLOWING DIAGNOSIS: No VTE patient discharged on overlapping Therapy?: Yes
--- NOTE | 2018-08-29 15:12 | PDOC TRANSFER SUMMARY ---
General - Admit/Disc Date/PCP Admission Date/Primary Care Provider: 08/24/18 12:25 MONTSE TOM MD Discharge Date: 08/29/18 - Discharge Diagnosis (1) Tachycardia Is this a current diagnosis for this admission?: Yes Summary: 08/24/2018-this elderly patient with history of COPD congestive heart failure coronary artery disease [facility] abnormal lithium and in the ER the heart rate in the 120s given IV metoprolol 5 mg and rate was relatively controlled. The plan plan is to do the cardiac enzymes x3, echocardiogram, and cardiology consult. I placed patient on metoprolol 25 mg p.o. twice daily. So far 2 sets of troponins are borderline 0.017. She denies any chest pain. Order for the EKG. first EKG shows sinus tachycardia with intermittent PACs. 08/25/2018 cardiology consult was placed yesterday I discussed the care with Dr. House he thinks patient has MAT 30 is multi focal atrial tachycardia. Patient was started on Cardizem yesterday. Cardizem 60 mg p.o. every 8 hours. Rate today is 94 he is in sinus tach rhythm. We will continue the present management. 08/26/2018, patient has multifocal atrial tachycardia. May be secondary to underlying COPD. He was on Cardizem 60 mg p.o. every 8 hours. We will continue the present management. 08/27/2018 patient's heart rate is in sinus rhythm right now heart rate is 72. He is on Cardizem 60 mg subcu p.o. every 8 hours. At the time of admission he has multifocal atrial tachycardia. Plan is to continue the present management. 08/28/2018 patient has multifocal atrial tachycardia he was started on Cardizem 60 mg p.o. every 8 hours his heart rate today 91 sinus rhythm. 08/29/2018 patient has multifocal atrial tachycardia on Cardizem 60 mg p.o. every 8 hours he is in sinus rhythm. Cardiology evaluation was done while he was in the hospital. (2) COPD with exacerbation Is this a current diagnosis for this admission?: Yes Summary: 08/24/2018-patient has a long history of COPD came in with COPD exacerbation with increasing shortness of breath. VBG shows PCO2 of 91%. I placed the order for BiPAP as needed, albuterol nebulizations every 6 as needed, Xopenex nebulizations every 8 hours, flutter valve, IV Solu-Medrol 125 mg every 8 hours. Also placed him on prophylactic antibiotics ceftriaxone 1 g daily. 08/25/2018-patient has a long history of COPD came in with exacerbation of shortness of breath. He has hypercapnia. VBG shows PCO2 of 91. Yesterday's labs CO2 is 41. To repeat the labs today. 08/26/2018 patient is off the BiPAP since last night. He is on 2 L nasal cannula and pulse ox is 98%. On examination chest bilateral entry was severely decreased with minimal wheezes. He will have a problem with CO2 retention. Requested for ABG today. I decreased IV Solu-Medrol to 40 mg every 12 hours. 08/27/2018-pulse ox on 2 L is 93%. Patient using the BiPAP in the night. Examination chest bilateral decreased symmetrically. But no wheezing no crepitations. He is on Solu-Medrol 40 mg daily. Latest ABG pH is 7.46, PCO2 58 , PO2 97, bicarb is 40. Hypercapnia is resolving. 08/28/2018 patient is comfortably in the bed on 2 L oxygen Socks is 94%. Chest examination bilaterality was decreased but no wheezing no crepitations. Nebulizations as a as needed basis. Patient's pulse ox is stable so he was not placed on BiPAP last night 08/29/2018 patient is on 2 L oxygen via nasal cannula pulse ox is 96% today. Is not on BiPAP in the last 48 hours. He is [facility] on a 2 L nasal cannula. (3) BPH (benign prostatic hyperplasia) Is this a current diagnosis for this admission?: Yes Summary: 08/24/2018-patient has a chronic history of COPD, Thompson's cath was placed in the ER 1800 mL of urine voided. We are going to keep the Thompson for now. 08/25/2018 patient has history of BPH. He was a Thompson's catheter. Plan to keep the Thompson's catheter during this hospital stay. 08/26/2018 patient has a Thompson's catheter. No problems. Probably he needs to go back to [facility] with Thompson catheter. Because of the persistent urinary retention. 08/27/2018-patient has a problem with urinary retention secondary to BPH. We are going to keep the Thompson's catheter for now. 08/28/2018-patient has a Thompson's catheter because of the urinary retention probably he will go back to [facility] with it. 08/29/2018 patient has chronic urinary retention patient is on Thompson catheter during the hospital stay. Is going to go back to [facility] with Thompson's catheter until further evaluation by the urologist. (4) Humerus fracture Is this a current diagnosis for this admission?: Yes Summary: patient came in with history of left humeral fracture. According to the family it happened more than a week ago. The recommendation from the ortho team as per the family is conservative management at this time. I am going to place a consult for orthopedics 08/29/2018 patient came in with history of left humeral fracture it happen several days prior to hospital admission he followed up with outpatient orthopedic [place]. No complications during the hospital stay. Patient is to follow-up with out the position as an outpatient. (5) Anemia Is this a current diagnosis for this admission?: Yes Summary: 08/24/2018-patient has history of anemia of chronic disease. Hemoglobin is 8.6. Going to follow the CBC on regular basis. 08/29/2018 patient has history of anemia chronic disease. His hemoglobin is stable around 8.5. (6) Dementia Is this a current diagnosis for this admission?: Yes - Additional Information Resuscitation Status: Do Not Resuscitate Discharge Diet: Cardiac Discharge Activity: Activity As Tolerated Prescriptions: Diltiazem HCl [Cardizem 60 mg Tablet] 60 mg PO TID #90 tablet Furosemide [Lasix 20 mg Tablet] 20 mg PO BID #60 tablet Furosemide [Lasix 20 mg Tablet] 20 mg PO BID #60 tablet Home Medications: Acetaminophen [Tylenol 325 mg Tablet] 650 mg PO Q6HP PRN 08/24/18 Albuterol Sulfate [Ventolin 0.083% Neb 2.5 mg/3 mL Ampul] 2.5 mg NEB Q6HP PRN Aspirin [Adult Low Dose Aspirin EC] 81 mg PO QAM 08/24/18 Atorvastatin Calcium [Lipitor 10 mg Tablet] 10 mg PO QHS 08/24/18 Calcium Citrate/Vitamin D3 [Citracal-Vit D3 200 mg-250 Tab] 2 tab PO QAM Cetirizine HCl [Zyrtec 10 mg Tablet] 10 mg PO QAM 08/24/18 Docusate Sodium [Colace 100 mg Capsule] 100 mg PO BID MDD HOLD FOR DIARRHEA 08/30 Finasteride [Proscar 5 mg Tablet] 5 mg PO QAM 08/24/18 Guaifenesin [Mucinex] 1,200 mg PO BID 08/24/18 Ipratropium/Albuterol Sulfate [Combivent Respimat 4 gm Mdi] 1 puff IH QID Omeprazole 20 mg PO ACBRKFST 08/24/18 Ondansetron HCl [Zofran 4 mg Tablet] 4 mg PO Q6HP PRN 08/24/18 Polyethylene Glycol 3350 [Miralax Powder 17 gm/Packet] 17 gm PO DAILYP PRN 08/24 Salmeterol Xinafoate [Serevent Diskus 50 Mcg/Dose 28 Dose/Diskus] 1 puff IH BID 08/24/18 Sennosides/Docusate 8.6-50 mg [Senna Plus Tablet] 1 tab PO BIDP PRN 08/24/18 Sod Phos Di, Griggs/K Phos Griggs [Phosphorous 250 mg Tablet] 750 mg PO BID Tamsulosin HCl [Flomax 0.4 mg Cap.sr] 0.4 mg PO QHS 08/24/18 Umeclidinium [place] [Incruse Ellipta] 1 puff IH QAM 08/24/18 Diltiazem HCl [Cardizem 60 mg Tablet] 60 mg PO TID #90 tablet 08/29/18 Famotidine [Pepcid 20 mg Tablet] 20 mg PO BID tablet 08/29/18 Furosemide [Lasix 20 mg Tablet] 20 mg PO BID #60 tablet 08/29/18 Furosemide [Lasix 20 mg Tablet] 20 mg PO BID #60 tablet 08/29/18 History of Present Illness Admission Date/PCP: 08/24/18 12:25 MONTSE TOM MD History of Present Illness: RENALDO DAWSON is a 88 year old male with history of COPD on 4 L oxygen, chronic renal insufficiency, urinary retention, dementia, congestive heart failure recently admitted in the hospital here 2 weeks ago for COPD exacerbation and transferred to [facility] for acute rehab sent to the ER after the nursing staff noticed abnormal cardiac rhythm. Family is also reporting and patient is reporting increasing shortness of breath for the last few days. Patient denies any chest pains. Denies any upper respiratory tract symptoms. Denies any nausea vomiting diarrhea. Positive for constipation history. Family is also given the history that patient [facility] the [facility] and he has humeral fracture left side. The emergency room is found to have a heart rate of 120s 130s indicating his atrial tachycardia he was given metoprolol 5 mg IV push on the heart rate was relatively controlled after the 2 troponins were done the borderline -0.017. The ER physician thought patient may be dehydrated and was given a 500 cc normal saline bolus with the patient respiration gotten worse which was compensated by Lasix dose. From the CODE STATUS with the patient and the family that he is DNR/DNI. Hospital Course Hospital Course: 08/29/2018 this elderly male came in with shortness of breath in the ER found to have atrial tachycardia cardiology consult was done started on Cardizem he converted to sinus rhythm is going to go back to penitentiary on Cardizem p.o. every 8 hours. 1.shortness of breath was resolved he is on oxygen 2 L nasal cannula initially was placed on BiPAP now he does not need any BiPAP anymore. Complications during the hospital stay. Physical Exam Vital Signs: Temp Pulse Resp BP Pulse Ox 97.7 F 97 20 154/66 H 100 08/29/18 12:00 08/29/18 12:00 08/29/18 12:00 08/29/18 12:00 08/29/18 12:00 Intake & Output 08/28/18 08/29/18 08/30/18 06:59 06:59 06:59 Intake Total 410 1165 650 Output Total 750 1530 800 Balance -340 -365 -150 Weight 90.2 kg 91.2 kg General appearance: PRESENT: no acute distress Head exam: PRESENT: atraumatic Eye exam: PRESENT: PERRLA Neck exam: ABSENT: carotid bruit, JVD, lymphadenopathy, thyromegaly Respiratory exam: PRESENT: decreased breath sounds Cardiovascular exam: PRESENT: RRR. ABSENT: diastolic murmur, rubs, systolic murmur GI/Abdominal exam: PRESENT: normal bowel sounds, soft. ABSENT: distended, guarding, mass, organolmegaly, rebound, tenderness Neurological exam: PRESENT: alert, awake, oriented to person, oriented to place , oriented to time, oriented to situation, CN II-XII grossly intact. ABSENT: motor sensory deficit Psychiatric exam: PRESENT: appropriate affect, normal mood. ABSENT: homicidal ideation, suicidal ideation Results Laboratory Results: 08/27/18 04:33 08/27/18 04:33 Impressions: Chest X-Ray 08/24/18 07:29 IMPRESSION: No acute abnormality of the lungs in AP projection. No focal airspace opacity. Qualifiers - * PATIENT BEING DISCHARGED WITH ANY OF THE FOLLOWING DIAGNOSIS: No VTE patient discharged on overlapping Therapy?: Yes
[2018-08-29 16:51] VITALS: BP 125/57
== END 2018-08-29 19:54 | DRG 309 ==
LOC: ER 06:53 → EH 12:25 → 4N 14:32
PROVIDERS: ADMIT Family Medicine; ATTEND Family Medicine
PROC: 5A09457 Assistance with Respiratory Ventilation, 24-96 Consecutive Hours, Continuous Positive Airway Pressure (ICD-10-PCS; principal; 2018-08-24)
DX: I47.1 Supraventricular tachycardia (principal); J96.10 Chronic respiratory failure, unspecified whether with hypoxia or hypercapnia; J44.1 Chronic obstructive pulmonary disease with (acute) exacerbation; F03.90 Unspecified dementia, unspecified severity, without behavioral disturbance, psychotic disturbance, mood disturbance, and anxiety; I25.10 Atherosclerotic heart disease of native coronary artery without angina pectoris; I11.0 Hypertensive heart disease with heart failure; I50.9 Heart failure, unspecified; E11.9 Type 2 diabetes mellitus without complications; Z99.81 Dependence on supplemental oxygen; N28.9 Disorder of kidney and ureter, unspecified; Z66 Do not resuscitate; Z88.0 Allergy status to penicillin; Z82.49 Family history of ischemic heart disease and other diseases of the circulatory system; Z83.438 Family history of other disorder of lipoprotein metabolism and other lipidemia; I25.2 Old myocardial infarction; D64.9 Anemia, unspecified; Z78.1 Physical restraint status; S42.302D Unspecified fracture of shaft of humerus, left arm, subsequent encounter for fracture with routine healing; W19.XXXD Unspecified fall, subsequent encounter; N40.1 Benign prostatic hyperplasia with lower urinary tract symptoms; R33.8 Other retention of urine; Z79.899 Other long term (current) drug therapy; Z79.51 Long term (current) use of inhaled steroids; Z53.29 Procedure and treatment not carried out because of patient's decision for other reasons
CPT/HCPCS: 36415; 36600; 51702; 71045; 80053; 81001; 82803; 83735; 83880; 84484; 85025; 86850; 86900; 86901; 86920; 87040; 93005; 93010; 93306; 94660; 94667; 94668; 96361; 96374; 96375; 99285; J0696; J1650; J1940; J2920; J2930; J3490; J7030

== ENCOUNTER 2018-11-07 18:34 | Emergency (ER) | payer MEDICARE, OTHER ==
[2018-11-07 18:59] LABS: ABSOLUTE EOSINOPHILS # (AUTO) 0.3 10^3/uL (0.0-0.6); ABSOLUTE LYMPHOCYTES (AUTO) 0.8 10^3/uL (0.5-4.7); ABSOLUTE MONOCYTES (AUTO) 0.7 10^3/uL (0.1-1.4); BASOPHILS % (AUTO) 0.5 % (0-2); EOSINOPHILS % (AUTO) 3.3 % (0-6); HEMATOCRIT 33.3 % (37.9-51.0); HEMOGLOBIN 10.9 g/dL (13.5-17.0); LYMPHOCYTES % (AUTO) 9.8 % (13-45); MEAN CORPUSCULAR HGB CONC 32.8 g/dL (32.0-36.0); MEAN CORPUSCULAR VOLUME 85 fl (80-97); MONOCYTES % (AUTO) 9.3 % (3-13); PLATELET COUNT 311 10^3/uL (150-450); RED CELL DISTRIBUTION WIDTH 15.3 % (11.5-14.0); SEGMENTED NEUTROPHILS % (AUTO) 77.1 % (42-78); TOTAL CELLS COUNTED % (AUTO) 100 %; VENOUS BLOOD BASE EXCESS 12.1 mmol/L; VENOUS BLOOD HCO3 38.9 mmol/L (20-32); VENOUS BLOOD PCO2 62.7 mmHg (35-63); VENOUS BLOOD PH 7.41 (7.30-7.42); WHITE BLOOD COUNT 7.7 10^3/uL (4.0-10.5)
[2018-11-07 19:09] LABS: INTERNATIONAL RATION (INR) 0.99; PROTHROMBIN TIME 13.6 SEC (11.4-15.4)
--- NOTE | 2018-11-07 19:16 | RADIOLOGY REPORT (SQ) ---
EXAM DESCRIPTION: CHEST SINGLE VIEW COMPLETED DATE/TIME: 11/07/2018 7:01 pm REASON FOR STUDY: continuous O2, SOB COMPARISON: 08/24/2018 TECHNIQUE: Single frontal radiographic view of the chest acquired. NUMBER OF VIEWS: One view. LIMITATIONS: None. FINDINGS: LUNGS AND PLEURA: No pneumothorax. No consolidation or pleural effusion. MEDIASTINUM AND HILAR STRUCTURES: Stable. HEART AND VASCULAR STRUCTURES: Stable. BONES: No acute findings. HARDWARE: None in the chest. OTHER: No other significant finding. IMPRESSION: NO ACUTE FINDINGS. TECHNICAL DOCUMENTATION: JOB ID: [id number] [employer]- All Rights Reserved Reading location - IP/workstation name: [email or web address]
[2018-11-07 19:18] LABS: ALANINE AMINOTRANSFERASE < 6 U/L (21-72); ALBUMIN 3.6 g/dL (3.5-5.0); ALKALINE PHOSPHATASE 63 U/L (38-126); ANION GAP 7 (5-19); ASPARTATE AMINO TRANSFERASE 22 U/L (17-59); BILIRUBIN,DIRECT 0.3 mg/dL (0.0-0.4); BILIRUBIN,TOTAL 0.4 mg/dL (0.2-1.3); BLOOD UREA NITROGEN 15 mg/dL (7-20); CALCIUM 8.6 mg/dL (8.4-10.2); CARBON DIOXIDE 39 mmol/L (22-30); CHLORIDE 93 mmol/L (98-107); GLUCOSE 154 mg/dL (75-110); POTASSIUM 4.4 mmol/L (3.6-5.0); SODIUM 138.5 mmol/L (137-145); TOTAL PROTEIN 6.6 g/dL (6.3-8.2)
[2018-11-07 21:12] LABS: AMORPHOUS SEDIMENT,URINE TRACE /HPF; APPEARANCE,URINE CLOUDY; BILIRUBIN,URINE NEGATIVE (NEGATIVE); COLOR,URINE YELLOW; GLUCOSE, URINE NEGATIVE (NEGATIVE); KETONES,URINE NEGATIVE (NEGATIVE); LEUKOCYTE ESTERASE,URINE LARGE (NEGATIVE); NITRITE,URINE NEGATIVE (NEGATIVE); PROTEIN,URINE 100 mg/dL (NEGATIVE); URINE SPECIFIC GRAVITY 1.018
--- NOTE | 2018-11-07 22:12 | ER Document Report ---
ED General - General Chief Complaint: Shortness Of Breath Stated Complaint: SHORTNESS OF BREATH Time Seen by Provider: 11/07/18 22:09 Primary Care Provider: STEFFEN HERNANDEZ MD [Primary Care Provider] - Follow up in 3-5 days Notes: A 88-year-old male to the emergency department chief complaint of fever. Patient has had protracted stay in and out of hospital and nursing facility. Currently on home health. Has been home for a week. Home health was concerned because he had an ugly cough. Patient denies any significant shortness of breath but did feel a little bit febrile today. Has an indwelling Thompson cathete r. Denies any shortness of breath at this time. TRAVEL OUTSIDE OF THE [place] IN LAST 30 DAYS: No - Related Data Allergies/Adverse Reactions: Penicillins Adverse Reaction (Mild, Verified 08/02/18 16:09) Generalized rash Past Medical History - General Information source: Patient, [facility] Records - Social History Smoking Status: Unknown if Ever Smoked Frequency of alcohol use: None Drug Abuse: None Lives with: Spouse/Significant other Family History: CAD, Hyperlipidemia, Hypertension, Malignancy - Past Medical History Cardiac Medical History: Reports: Hx Atrial Fibrillation, Hx Congestive Heart Failure, Hx Coronary Artery Disease, Hx Heart Attack, Hx Hypercholesterolemia, Hx Hypertension Pulmonary Medical History: Reports: Hx Bronchitis, Hx COPD, Hx Pneumonia, Hx Respiratory Failure Denies: Hx Tuberculosis Neurological Medical History: Denies: Hx Seizures Endocrine Medical History: Reports: Hx Diabetes Mellitus Type 2 - DIET CONTROLLED. Denies: Hx Diabetes Mellitus Type 1 Renal/ Medical History: Denies: Hx Peritoneal Dialysis GI Medical History: Reports: Hx Diverticulitis - With lower GI bleed, Hx Hiatal Hernia Musculoskeletal Medical History: Denies Hx Arthritis, Denies Hx Gout Skin Medical History: Denies Hx Eczema, Denies Hx Psoriasis Psychiatric Medical History: Denies: Hx Depression Past Surgical History: Reports: Hx Herniorrhaphy, Hx Orthopedic Surgery - left arm, back, Other - Colonoscopy - Immunizations Hx Pneumococcal Vaccination: 08/24/18 Review of Systems - Review of Systems Notes: Constitutional: denies: Chills, Diaphoresis, +Fever,+Malaise, +Weakness EENT: denies: Eye discharge, Blurred vision, Tearing, Double vision, Nose congestion, Nose discharge, Throat swelling, Mouth pain Cardiovascular: denies: Palpitations, Heart racing, Orthopnea, Dyspnea, Chest pain Respiratory: Planing of COPD, chronic cough, intermittent shortness of breath but none at this time. Gastrointestinal: denies: Abdominal pain, Diarrhea, Nausea, Vomiting, Black stools, bright red blood in stool Genitourinary: Does complain of burning. Has an indwelling Thompson catheter. Musculoskeletal: denies: Joint pain, Joint swelling, Muscle pain, Muscle stiffness, back pain Hematologic/Lymphatic: denies: Anemia, Easy bleeding, Easy bruising, Blood clots Neurological/Psychological: denies: Confusion, Dementia, Depression, Loss of con sciousness Skin: No lesions, no masses, no skin breakdown, no abscesses Physical Exam - Vital signs Vitals: Resp 27 H 11/07/18 18:38 Interpretation: Normal - General General appearance: Appears well, Alert - HEENT Head: Normocephalic, Atraumatic Eyes: Normal Pupils: PERRL - Respiratory Respiratory status: No respiratory distress Chest status: Nontender Breath sounds: Normal Chest palpation: Normal - Cardiovascular Rhythm: Regular Heart sounds: Normal auscultation Murmur: No - Abdominal Inspection: Normal Distension: No distension Bowel sounds: Normal Tenderness: Nontender Organomegaly: No organomegaly - Back Back: Normal, Nontender - Extremities General upper extremity: Normal inspection, Nontender, Normal color, Normal ROM, Normal temperature General lower extremity: Normal inspection, Nontender, Normal color, Normal ROM, Normal temperature, Normal weight bearing. No: Edema, Jossie's sign - Neurological Neuro grossly intact: Yes Cognition: Normal Orientation: AAOx4 [place] Coma Scale Eye Opening: Spontaneous [place] Coma Scale Verbal: Oriented [place] Coma Scale Motor: Obeys Commands [place] Coma Scale Total: 15 Speech: Normal Motor strength normal: LUE, RUE, LLE, RLE Sensory: Normal - Psychological Associated symptoms: Normal affect, Normal mood - Skin Skin Temperature: Warm Skin Moisture: Dry Skin Color: Normal Course - Re-evaluation Re-evalutation: 11/07/18 23:06 There is no evidence patient is septic at this time. Blood work is fairly unremarkable. Urinalysis shows evidence of UTI. Previous culture results show multiple resistance. At this time I have an IV so we will give him an initial dose of meropenem. Will remove the catheter replaced with new catheter. Has home health follow-up. Culture results show that sensitive to a few antibiotics that we can try as an outpatient. 11/07/18 23:11 Laboratory 11/07/18 11/07/18 11/07/18 18:39 18:39 18:39 WBC 7.7 RBC 3.90 L Hgb 10.9 L Hct 33.3 L MCV 85 MCH 28.0 MCHC 32.8 RDW 15.3 H Plt Count 311 Seg Neutrophils % 77.1 Lymphocytes % 9.8 L Monocytes % 9.3 Eosinophils % 3.3 Basophils % 0.5 Absolute Neutrophils 6.0 Absolute Lymphocytes 0.8 Absolute Monocytes 0.7 Absolute Eosinophils 0.3 Absolute Basophils 0.0 PT 13.6 INR 0.99 VBG pH VBG pCO2 VBG HCO3 VBG Base Excess Sodium 138.5 Potassium 4.4 Chloride 93 L Carbon Dioxide 39 H Anion Gap 7 BUN 15 Creatinine 0.98 Est GFR ( Amer) > 60 Est GFR (Non-Af Amer) > 60 Glucose 154 H Lactic Acid Calcium 8.6 Total Bilirubin 0.4 Direct Bilirubin 0.3 Neonat Total Bilirubin Not Reportable Neonat Direct Bilirubin Not Reportable Neonat Indirect Bili Not Reportable AST 22 ALT < 6 L Alkaline Phosphatase 63 Total Protein 6.6 Albumin 3.6 Urine Color Urine Appearance Urine pH Ur Specific [place] Urine Protein Urine Glucose (UA) Urine Ketones Urine Blood Urine Nitrite Urine Bilirubin Urine Urobilinogen Ur Leukocyte Esterase Urine WBC (Auto) Urine RBC (Auto) Urine Bacteria (Auto) Urine WBC Clumps Amorphous Sediment Auto Urine Mucus (Auto) Urine Ascorbic Acid 11/07/18 11/07/18 11/07/18 18:39 18:39 20:40 WBC RBC Hgb Hct MCV MCH MCHC RDW Plt Count Seg Neutrophils % Lymphocytes % Monocytes % Eosinophils % Basophils % Absolute Neutrophils Absolute Lymphocytes Absolute Monocytes Absolute Eosinophils Absolute Basophils PT INR VBG pH 7.41 VBG pCO2 62.7 VBG HCO3 38.9 H VBG Base Excess 12.1 Sodium Potassium Chloride Carbon Dioxide Anion Gap BUN Creatinine Est GFR ( Amer) Est GFR (Non-Af Amer) Glucose Lactic Acid 1.5 Calcium Total Bilirubin Direct Bilirubin Neonat Total Bilirubin Neonat Direct Bilirubin Neonat Indirect Bili AST ALT Alkaline Phosphatase Total Protein Albumin Urine Color YELLOW Urine Appearance CLOUDY Urine pH 7.0 Ur Specific [place] 1.018 Urine Protein 100 H Urine Glucose (UA) NEGATIVE Urine Ketones NEGATIVE Urine Blood SMALL H Urine Nitrite NEGATIVE Urine Bilirubin NEGATIVE Urine Urobilinogen 4.0 H Ur Leukocyte Esterase LARGE H Urine WBC (Auto) >182 Urine RBC (Auto) 71 Urine Bacteria (Auto) TRACE Urine WBC Clumps FEW Amorphous Sediment Auto TRACE Urine Mucus (Auto) OCC Urine Ascorbic Acid NEGATIVE Chest X-Ray 11/07/18 18:44 IMPRESSION: NO ACUTE FINDINGS. Patient denies any significant shortness of breath. Vital signs are within normal limits. Lungs actually sound clear. Chest x-ray unremarkable. Urine consistent with UTI. Will base treatment on prior culture results. Before discharge after initial dose of IV antibiotics and Thompson change out. - Vital Signs Vital signs: Temp Pulse Resp BP Pulse Ox 98.4 F 23 H 102/68 98 11/07/18 22:01 11/07/18 22:01 11/07/18 22:01 11/07/18 22:01 - Laboratory Result Diagrams: 11/07/18 18:39 11/07/18 18:39 Laboratory results interpreted by me: 11/07/18 11/07/18 11/07/18 18:39 18:39 18:39 RBC 3.90 L Hgb 10.9 L Hct 33.3 L RDW 15.3 H Lymphocytes % 9.8 L VBG HCO3 38.9 H Chloride 93 L Carbon Dioxide 39 H Glucose 154 H ALT < 6 L Urine Protein Urine Blood Urine Urobilinogen Ur Leukocyte Esterase 11/07/18 20:40 RBC Hgb Hct RDW Lymphocytes % VBG HCO3 Chloride Carbon Dioxide Glucose ALT Urine Protein 100 H Urine Blood SMALL H Urine Urobilinogen 4.0 H Ur Leukocyte Esterase LARGE H Discharge - Discharge Clinical Impression: Indwelling Thompson catheter present Urinary tract infection Qualifiers: Urinary tract infection type: site unspecified Hematuria presence: without hematuria Qualified Code(s): N39.0 - Urinary tract infection, site not specified Condition: Good Disposition: HOME, SELF-CARE Instructions: Ciprofloxacin ([facility]), Thompson Catheter Care ([facility]), Nitrofurantoin ([facility]), Urinary Tract Infection ([facility]) Prescriptions: Ciprofloxacin HCl [Cipro 500 mg Tablet] 500 mg PO BID 7 Days #14 tablet Nitrofurantoin/Nitrofuran Mac [Macrobid 100 mg Capsule] 1 tab PO BID 10 Days #20 capsule Referrals: STEFFEN HERNANDEZ MD [Primary Care Provider] - Follow up in 3-5 days
[2018-11-07] MEDS ORDERED: MEROPENEM 1 GM VIAL IV ONE (22:23)
[2018-11-07 23:50] VITALS: BP 136/84
--- NOTE | 2018-11-09 10:25 | EKG REPORT ---
SEVERITY:- NORMAL ECG - SINUS RHYTHM : Confirmed by: Luz Rae 09-Nov-2018 10:24:34
== END 2018-11-08 00:26 | disposition home or self-care (01) ==
LOC: ER 18:34
DX: N39.0 Urinary tract infection, site not specified (principal); R50.9 Fever, unspecified; R06.02 Shortness of breath; R05 Cough; Z88.0 Allergy status to penicillin; Z46.6 Encounter for fitting and adjustment of urinary device
CPT/HCPCS: 93005; 99285; 96365; 36415; 87040; 87086; 85025; 85610; 87088; 80053; 81001; 87186; 82803; 83605; 71045; 93010; J2185

== ENCOUNTER 2018-12-12 15:01 | Inpatient (IN) | payer MEDICARE, OTHER ==
[2018-12-12] MEDS ORDERED: METHYLPREDNISOLONE INJ 125 MG/2 ML SDV IV ONE (15:18)
[2018-12-12] MEDS ORDERED: IPRATROPIUM/ALBUTEROL 0.5-2.5 MG/3 ML AMPUL NEB ONE ×3 (15:18→16:07)
--- NOTE | 2018-12-12 15:23 | RADIOLOGY REPORT (SQ) ---
EXAM DESCRIPTION: CHEST SINGLE VIEW COMPLETED DATE/TIME: 12/12/2018 3:16 pm REASON FOR STUDY: bed 18 sepsis protocol COMPARISON: Chest films 07/26/2009, 08/24/2018, 11/07/2018 EXAM PARAMETERS: NUMBER OF VIEWS: One view. TECHNIQUE: Single frontal radiographic view of the chest acquired. RADIATION DOSE: NA LIMITATIONS: None. FINDINGS: LUNGS AND PLEURA: Few Rohan lines are present at the right and left lateral costophrenic sulci, question interstitial edema. No pleural effusions. No pneumothorax. No dense consolidation worrisome for pneumonia. MEDIASTINUM AND HILAR STRUCTURES: No masses. Contour normal. HEART AND VASCULAR STRUCTURES: No cardiomegaly BONES: No acute findings. HARDWARE: None in the chest. OTHER: No other significant finding. IMPRESSION: Few Rohan lines at both bases, question mild interstitial edema. TECHNICAL DOCUMENTATION: JOB ID: [id number] [employer]- All Rights Reserved Reading location - IP/workstation name: [email or web address]
[2018-12-12 15:32] LABS: HEMATOCRIT 33.2 % (37.9-51.0); HEMOGLOBIN 10.9 g/dL (13.5-17.0); MEAN CORPUSCULAR HEMOGLOBIN 27.4 pg (27.0-33.4); MEAN CORPUSCULAR HGB CONC 32.7 g/dL (32.0-36.0); MEAN CORPUSCULAR VOLUME 84 fl (80-97); PLATELET COUNT 278 10^3/uL (150-450); RED BLOOD COUNT 3.97 10^6/uL (4.35-5.55); RED CELL DISTRIBUTION WIDTH 15.4 % (11.5-14.0); WHITE BLOOD COUNT 16.3 10^3/uL (4.0-10.5)
[2018-12-12 15:35] LABS: INTERNATIONAL RATION (INR) 1.02; PROTHROMBIN TIME 13.9 SEC (11.4-15.4)
[2018-12-12 15:48] LABS: ALANINE AMINOTRANSFERASE 15 U/L (21-72); ALBUMIN 3.5 g/dL (3.5-5.0); ALKALINE PHOSPHATASE 76 U/L (38-126); ASPARTATE AMINO TRANSFERASE 26 U/L (17-59); BILIRUBIN,DIRECT 0.4 mg/dL (0.0-0.4); BILIRUBIN,TOTAL 0.6 mg/dL (0.2-1.3); BLOOD UREA NITROGEN 43 mg/dL (7-20); CALCIUM 9.5 mg/dL (8.4-10.2); CHLORIDE 87 mmol/L (98-107); CREATINE KINASE 28 U/L (55-170); GLUCOSE 168 mg/dL (75-110); POTASSIUM 4.4 mmol/L (3.6-5.0); TOTAL PROTEIN 7.3 g/dL (6.3-8.2)
[2018-12-12 15:48] LABS: ARTERIAL BLOOD BASE EXCESS 6.2 mmol/L; ARTERIAL BLOOD H2CO3 3.01 mmol/L (1.05-1.35); ARTERIAL BLOOD HCO3 37.7 mmol/L (20-24); ARTERIAL BLOOD O2 SATURATION 89.3 % (94-98); ARTERIAL BLOOD PO2 71.9 mmHg (80-100); ARTERIAL BLOOD TOTAL CO2 40.8 mmol/L (23-27)
[2018-12-12 15:49] LABS: ARTERIAL BLOOD FIO2 50%
[2018-12-12 15:53] LABS: ABSOLUTE LYMPHOCYTES# (MANUAL) 0.7 10^3/uL (0.5-4.7); ABSOLUTE MONOCYTES # (MANUAL) 0.8 10^3/uL (0.1-1.4); ABSOLUTE NEUTROPHILS# (MANUAL) 14.8 10^3/uL (1.7-8.2); BAND NEUTROPHILS % (MANUAL) 6 % (3-5); BASOPHILS % (MANUAL) 0 % (0-2); EOSINOPHILS % (MANUAL) 0 % (0-6); LYMPHOCYTES % (MANUAL) 4 % (13-45); MONOCYTES % (MANUAL) 5 % (3-13); SEGMENTED NEUTROPHILS % (MAN) 85 % (42-78); TOTAL CELLS COUNTED 100
[2018-12-12 15:53] LABS: ARTERIAL BLOOD PCO2 99.9 mmHg (35-45)
[2018-12-12 15:54] LABS: ANISOCYTOSIS SLIGHT; OVALOCYTES SLIGHT; PLATELET COMMENT ADEQUATE; POIKILOCYTOSIS SLIGHT; TOXIC GRANULATION SLIGHT
[2018-12-12 16:00] LABS: CREATINE KINASE MB 2.78 ng/mL (<4.55)
[2018-12-12 16:01] LABS: ANION GAP 6 (5-19); CARBON DIOXIDE 38 mmol/L (22-30)
[2018-12-12 16:02] LABS: TROPONIN I 0.057 ng/mL
[2018-12-12] MEDS ORDERED: METHYLPREDNISOLONE INJ 125 MG/2 ML SDV ONE (16:12)
[2018-12-12] MEDS ORDERED: VANCOMYCIN HCL INJ 1000 MG VIAL IV ONE (16:12)
--- NOTE | 2018-12-12 16:12 | ER Document Report ---
ED General - General Chief Complaint: Respiratory Distress Stated Complaint: SHORTNESS OF BREATH Time Seen by Provider: 12/12/18 15:18 Mode of Arrival: Medic Information source: Relative, Outside Facility Records Notes: This is an 88-year-old man with a history of CHF and COPD that is brought into the emergency room with respiratory distress. Patient's states that he has had a long history of COPD and that he was worse over the weekend. TRAVEL OUTSIDE OF THE [place] IN LAST 30 DAYS: No - HPI Onset: Last week Onset/Duration: Gradual Quality of pain: No pain Severity: None Pain Level: Denies Associated symptoms: Shortness of breath. denies: Chest pain, Fever Exacerbated by: Denies Relieved by: Denies Similar symptoms previously: Yes Recently seen / treated by doctor: Yes - Related Data Allergies/Adverse Reactions: Penicillins Adverse Reaction (Mild, Verified 12/12/18 15:15) Generalized rash Past Medical History - General Information source: Relative - Patient's - Social History Smoking Status: Former Smoker Cigarette use (# per day): No Chew tobacco use (# tins/day): No Frequency of alcohol use: None Drug Abuse: None Lives with: Family Family History: CAD, Hyperlipidemia, Hypertension, Malignancy Patient has suicidal ideation: No Patient has homicidal ideation: No - Past Medical History Cardiac Medical History: Reports: Hx Atrial Fibrillation, Hx Congestive Heart Failure, Hx Coronary Artery Disease, Hx Heart Attack, Hx Hypercholesterolemia, Hx Hypertension Pulmonary Medical History: Reports: Hx Bronchitis, Hx COPD, Hx Pneumonia, Hx Respiratory Failure Denies: Hx Tuberculosis Neurological Medical History: Denies: Hx Seizures Endocrine Medical History: Reports: Hx Diabetes Mellitus Type 2 - DIET CONTROLLE D. Denies: Hx Diabetes Mellitus Type 1 Renal/ Medical History: Denies: Hx Peritoneal Dialysis GI Medical History: Reports: Hx Diverticulitis - With lower GI bleed, Hx Hiatal Hernia Musculoskeletal Medical History: Denies Hx Arthritis, Denies Hx Gout Skin Medical History: Denies Hx Eczema, Denies Hx Psoriasis Psychiatric Medical History: Denies: Hx Depression Past Surgical History: Reports: Hx Herniorrhaphy, Hx Orthopedic Surgery - left arm, back, Other - Colonoscopy - Immunizations Hx Pneumococcal Vaccination: 08/24/18 Review of Systems - Review of Systems Constitutional: denies: Chills, Fever EENT: No symptoms reported Cardiovascular: Orthopnea. denies: Chest pain, Palpitations, Heart racing Respiratory: Cough, Short of breath Gastrointestinal: No symptoms reported Genitourinary: No symptoms reported Male Genitourinary: No symptoms reported Musculoskeletal: No symptoms reported Skin: No symptoms reported Hematologic/Lymphatic: No symptoms reported Neurological/Psychological: Confusion, Other - Decreased mental status Physical Exam - Vital signs Vitals: Temp Pulse Resp BP Pulse Ox 97.9 F 88 23 H 113/59 L 90 L 12/12/18 15:04 12/12/18 15:04 12/12/18 15:04 12/12/18 15:04 12/12/18 15:04 Notes: Physical exam: GENERAL: Is an 88-year-old man. He is lethargic and short of breath. He is not hypoxic. HEAD: Atraumatic, normocephalic. EYES: Pupils equal round and reactive to light, extraocular movements intact, sclera anicteric, conjunctiva are normal. ENT: TMs normal, nares patent, oropharynx clear without exudates. Moist mucous membranes. NECK: Normal range of motion, supple without obvious mass or JVD. LUNGS: Lateral wheezing. HEART: Regular rate and rhythm without murmurs, rubs or gallops. ABDOMEN: Soft, normoactive bowel sounds. No tenderness to palpation. No guarding, no rebound. No masses appreciated. EXTREMITIES: Normal range of motion, no pitting or edema. No clubbing or cyanosis. NEUROLOGICAL: Cranial nerves II through XII grossly intact. Normal speech, moving all extremities. PSYCH: Normal mood, normal affect. SKIN: Warm, Dry, normal turgor, no rashes or lesions noted. Course - Re-evaluation Re-evalutation: 12/12/18 16:10 Treatment has included BiPAP, albuterol and ipratropium nebulizers, IV Solu- Medrol. I have had a long discussion with the patient's who states that he is a DNR and he does not wish to be on a ventilator. I have just with her that he is in respiratory failure and at this point, I would normally recommend being placed on a ventilator for the respiratory failure. His mental status has not improved on the BiPAP. He has been treated with nebulizers. Antibiotics are written for. His oxygen saturation at this time is 92% on an FiO2 of 50%. He has on a IPAP of 16 and EPAP of 6 12/12/18 21:01 - Vital Signs Vital signs: Temp Pulse Resp BP Pulse Ox 97.7 F 96 24 H 102/77 97 12/12/18 18:28 12/12/18 18:28 12/12/18 18:28 12/12/18 18:28 12/12/18 18:28 - Laboratory Result Diagrams: 12/12/18 15:11 12/12/18 15:11 Laboratory results interpreted by me: 12/12/18 12/12/18 12/12/18 15:11 15:11 15:11 WBC 16.3 H RBC 3.97 L Hgb 10.9 L Hct 33.2 L RDW 15.4 H Seg Neuts % (Manual) 85 H Band Neutrophils % 6 H Lymphocytes % (Manual) 4 L Abs Neuts (Manual) 14.8 H Carbonic Acid ABG pH ABG pCO2 ABG pO2 ABG HCO3 ABG Total CO2 ABG O2 Saturation Sodium 131.0 L Chloride 87 L Carbon Dioxide 38 H BUN 43 H Est GFR (Non-Af Amer) 55 L Glucose 168 H POC Glucose ALT 15 L Creatine Kinase 28 L NT-Pro-B Natriuret Pep 3450 H Urine Protein Urine Blood Urine Bilirubin Urine Urobilinogen Ur Leukocyte Esterase 12/12/18 12/12/18 12/12/18 15:11 15:33 16:27 WBC RBC Hgb Hct RDW Seg Neuts % (Manual) Band Neutrophils % Lymphocytes % (Manual) Abs Neuts (Manual) Carbonic Acid 3.01 H ABG pH 7.20 L* ABG pCO2 99.9 H* ABG pO2 71.9 L ABG HCO3 37.7 H ABG Total CO2 40.8 H ABG O2 Saturation 89.3 L Sodium Chloride Carbon Dioxide BUN Est GFR (Non-Af Amer) Glucose POC Glucose 154 H ALT Creatine Kinase NT-Pro-B Natriuret Pep Urine Protein 30 H Urine Blood SMALL H Urine Bilirubin SMALL H Urine Urobilinogen 4.0 H Ur Leukocyte Esterase MODERATE H - Diagnostic Test Radiology reviewed: Image reviewed, Reports reviewed - Curly B-lines Critical Care Note - Critical Care Note Total time excluding time spent on procedures (mins): 60 Discharge - Discharge Clinical Impression: Respiratory failure, Acute COPD exacerbation Condition: Critical Disposition: ADMITTED INPATIENT Admitting Provider: Hospitalist - Dr. Parada Unit Admitted: ICU
[2018-12-12] MEDS ORDERED: CEFEPIME 1 GM/D5W RTU 1 GM/50 ML RTUPB IV ONE (16:13)
[2018-12-12] MEDS ORDERED: NORMAL SALINE 1000 ML 1,000 ML IV ONE (16:15)
[2018-12-12 16:51] LABS: AMORPHOUS SEDIMENT,URINE TRACE /HPF; APPEARANCE,URINE CLOUDY; BILIRUBIN,URINE SMALL (NEGATIVE); GLUCOSE, URINE NEGATIVE (NEGATIVE); KETONES,URINE NEGATIVE (NEGATIVE); LEUKOCYTE ESTERASE,URINE MODERATE (NEGATIVE); NITRITE,URINE NEGATIVE (NEGATIVE); PROTEIN,URINE 30 mg/dL (NEGATIVE); URINE SPECIFIC GRAVITY 1.017
[2018-12-12 16:53] LABS: COLOR,URINE DARK YELLOW
[2018-12-12] MEDS ORDERED: RINGERS SOLUTION,LACTATED 1,000 ML IV PRN (16:55)
--- NOTE | 2018-12-12 17:10 | PDOC H&P ---
History of Present Illness Admission Date/PCP: STEFFEN HERNANDEZ History of Present Illness: RENALDO DAWSON is a 88 year old male with a history of oxygen dependent COPD who was not feeling well for the past couple of days. P.o. intake has been poor. He has had no changes in his medications. He does not take anything that would sedate him. He is been getting progressively more drowsy. Family was unable to get him to wake up this morning and so they had him brought to the hospital. He was found to have a PCO2 of 100 and a respiratory acidosis. He was apparently a little bit more awake when he came into the ER but is now completely obtunded. He was a DNR according to his , but she seems a little hesitant. We have put him on BiPAP in the ER and will be admitting him to the intensive care unit. Past Medical History Cardiac Medical History: Reports: Atrial Fibrillation, Congestive Heart Failure, Coronary Artery Disease, Myocardial Infarction, Hyperlipidema, Hypertension Pulmonary Medical History: Reports: Bronchitis, Chronic Obstructive Pulmonary Disease (COPD), Pneumonia, Respiratory Failure Denies: Tuberculosis Neurological Medical History: Denies: Seizures Endocrine Medical History: Reports: Diabetes Mellitus Type 2 - DIET CONTROLLED Denies: Diabetes Mellitus Type 1 GI Medical History: Reports: Diverticulitis - With lower GI bleed, Hiatal Hernia Musculoskeltal Medical History: Denies: Arthritis, Gout Skin Medical History: Denies: Eczema, Psoriasis Psychiatric Medical History: Denies: Depression Hematology: Reports: Anemia Denies: Bleeding Tendencies Past Surgical History Past Surgical History: Reports: Herniorrhaphy, Orthopedic Surgery - left arm, back, Other - Colonoscopy Social History Smoking Status: Unknown if Ever Smoked Frequency of Alcohol Use: None Hx Recreational Drug Use: No Drugs: None Hx Prescription Drug Abuse: No Family History Family History: CAD, Hyperlipidemia, Hypertension, Malignancy Parental Family History Reviewed: Yes Children Family History Reviewed: Yes Sibling(s) Family History Reviewed.: Yes Medication/Allergy Home Medications: Acetaminophen [Tylenol 325 mg Tablet] 650 mg PO Q6HP PRN 08/24/18 Albuterol Sulfate [Ventolin 0.083% Neb 2.5 mg/3 mL Ampul] 2.5 mg NEB Q6HP PRN 18 Aspirin [Adult Low Dose Aspirin EC] 81 mg PO QAM 08/24/18 Atorvastatin Calcium [Lipitor 10 mg Tablet] 10 mg PO QHS 12/12/18 Calcium Citrate/Vitamin D3 [Citracal-Vit D3 200 mg-250 Tab] 2 tab PO QAM 08/24/18 Cetirizine HCl [Zyrtec 10 mg Tablet] 10 mg PO QAM 08/24/18 Docusate Sodium [Colace 100 mg Capsule] 100 mg PO BID MDD HOLD FOR DIARRHEA 08/24/18 Finasteride [Proscar 5 mg Tablet] 5 mg PO QAM 08/24/18 Guaifenesin [Mucinex] 1,200 mg PO BID 08/24/18 Ipratropium/Albuterol Sulfate [Combivent Respimat 4 gm Mdi] 1 puff IH QID 08/24/18 Omeprazole 20 mg PO ACBRKFST 08/24/18 Ondansetron HCl [Zofran 4 mg Tablet] 4 mg PO Q6HP PRN 08/24/18 Polyethylene Glycol 3350 [Miralax Powder 17 gm/Packet] 17 gm PO DAILYP PRN 08/24/18 Salmeterol Xinafoate [Serevent Diskus 50 Mcg/Dose 28 Dose/Diskus] 1 puff IH BID 08/24/18 Sennosides/Docusate 8.6-50 mg [Senna Plus Tablet] 1 tab PO BIDP PRN 08/24/18 Sod Phos Di, [place]/K Phos [place] [Phosphorous 250 mg Tablet] 750 mg PO BID 08/24/18 Tamsulosin HCl [Flomax 0.4 mg Cap.sr] 0.4 mg PO QHS 08/24/18 Umeclidinium Onward [Incruse Ellipta] 1 puff IH QAM 08/24/18 Diltiazem HCl [Cardizem 60 mg Tablet] 60 mg PO TID #90 tablet 08/29/18 Famotidine [Pepcid 20 mg Tablet] 20 mg PO BID tablet 08/29/18 Furosemide [Lasix 20 mg Tablet] 20 mg PO BID #60 tablet 08/29/18 Furosemide [Lasix 20 mg Tablet] 20 mg PO BID #60 tablet 08/29/18 Ciprofloxacin HCl [Cipro 500 mg Tablet] 500 mg PO BID 7 Days #14 tablet 11/07/18 Nitrofurantoin/Nitrofuran Mac [Macrobid 100 mg Capsule] 1 tab PO BID 10 Days #20 capsule 11/07/18 Allergies/Adverse Reactions: Penicillins Adverse Reaction (Mild, Verified 12/12/18 15:15) Generalized rash Review of Systems ROS unobtainable: Due to mental status Physical Exam Vital Signs: Temp Pulse Resp BP Pulse Ox 98.4 F 88 27 H 103/50 L 92 12/12/18 15:39 12/12/18 16:30 12/12/18 16:37 12/12/18 16:37 12/12/18 16:37 Intake & Output 12/11/18 12/12/18 12/13/18 06:59 06:59 06:59 Weight 82.6 kg General appearance: PRESENT: disheveled, severe distress Head exam: PRESENT: atraumatic, normocephalic Eye exam: PRESENT: PERRLA - Sluggish. ABSENT: conjunctival injection, nystagmus, scleral icterus Ear exam: PRESENT: normal external ear exam Mouth exam: PRESENT: neck supple Teeth exam: PRESENT: edentulous Throat exam: PRESENT: other - Had BiPAP mask on Neck exam: PRESENT: full ROM. ABSENT: carotid bruit, JVD, lymphadenopathy, meningismus, tenderness, thyromegaly Respiratory exam: PRESENT: rhonchi, symmetrical, unlabored. ABSENT: accessory muscle use, crackles, prolonged expiratory phas, rales, tachypnea, wheezes Cardiovascular exam: PRESENT: RRR, +S1, +S2 Pulses: ABSENT: normal carotid pulses Vascular exam: ABSENT: normal capillary refill GI/Abdominal exam: PRESENT: normal bowel sounds, soft. ABSENT: distended, guarding, rebound, tenderness Extremities exam: ABSENT: clubbing, pedal edema Musculoskeletal exam: PRESENT: normal inspection. ABSENT: deformity Neurological exam: PRESENT: altered - Obtunded, could not assess neurological system satisfactorily, patient arouses to noxious stimuli Skin exam: PRESENT: dry, warm Results Laboratory Results: 12/12/18 15:11 12/12/18 15:11 12/12/18 12/12/18 12/12/18 15:11 15:11 15:11 WBC 16.3 H RBC 3.97 L Hgb 10.9 L Hct 33.2 L MCV 84 MCH 27.4 MCHC 32.7 RDW 15.4 H Plt Count 278 Seg Neutrophils % Not Reportable Lymphocytes % Not Reportable Monocytes % Not Reportable Eosinophils % Not Reportable Basophils % Not Reportable Absolute Neutrophils Not Reportable Absolute Lymphocytes Not Reportable Absolute Monocytes Not Reportable Absolute Eosinophils Not Reportable Absolute Basophils Not Reportable Carbonic Acid HCO3/H2CO3 Ratio ABG pH ABG pCO2 ABG pO2 ABG HCO3 ABG O2 Saturation ABG Base Excess FiO2 Sodium 131.0 L Potassium 4.4 Chloride 87 L Carbon Dioxide 38 H Anion Gap 6 BUN 43 H Creatinine 1.24 Est GFR ( Amer) > 60 Est GFR (Non-Af Amer) 55 L Glucose 168 H Lactic Acid 1.4 Calcium 9.5 Total Bilirubin 0.6 AST 26 ALT 15 L Alkaline Phosphatase 76 Total Protein 7.3 Albumin 3.5 Urine Color Urine Appearance Urine pH Ur Specific [place] Urine Protein Urine Glucose (UA) Urine Ketones Urine Blood Urine Nitrite Ur Leukocyte Esterase Urine WBC (Auto) Urine RBC (Auto) 12/12/18 12/12/18 15:33 16:27 WBC RBC Hgb Hct MCV MCH MCHC RDW Plt Count Seg Neutrophils % Lymphocytes % Monocytes % Eosinophils % Basophils % Absolute Neutrophils Absolute Lymphocytes Absolute Monocytes Absolute Eosinophils Absolute Basophils Carbonic Acid 3.01 H HCO3/H2CO3 Ratio 12:1 ABG pH 7.20 L* ABG pCO2 99.9 H* ABG pO2 71.9 L ABG HCO3 37.7 H ABG O2 Saturation 89.3 L ABG Base Excess 6.2 FiO2 50% Sodium Potassium Chloride Carbon Dioxide Anion Gap BUN Creatinine Est GFR ( Amer) Est GFR (Non-Af Amer) Glucose Lactic Acid Calcium Total Bilirubin AST ALT Alkaline Phosphatase Total Protein Albumin Urine Color DARK YELLOW Urine Appearance CLOUDY Urine pH 5.0 Ur Specific [place] 1.017 Urine Protein 30 H Urine Glucose (UA) NEGATIVE Urine Ketones NEGATIVE Urine Blood SMALL H Urine Nitrite NEGATIVE Ur Leukocyte Esterase MODERATE H Urine WBC (Auto) 14 Urine RBC (Auto) 2 12/12/18 12/12/18 15:11 15:11 Creatine Kinase 28 L CK-MB (CK-2) 2.78 Troponin I 0.057 NT-Pro-B Natriuret Pep 3450 H Impressions: Chest X-Ray 12/12/18 15:04 IMPRESSION: Few Rohan lines at both bases, question mild interstitial edema. Assessment and Plan - Diagnosis (1) Acute hypercapnic respiratory failure Is this a current diagnosis for this admission?: Yes Plan: Is a DNR and at this time family is going with his wishes and trying to not intubate him. We currently have him on BiPAP, but it is noted that his mental status actually a little bit worse afterwards. We are admitting him to the ICU. We will empirically cover him with some steroids and antibiotics. (2) Metabolic encephalopathy Is this a current diagnosis for this admission?: Yes Plan: Due to his elevated PCO2. We have on BiPAP. If his mental status improves, will start him on some of his home medications. - Time Time Spent with patient: 35 or more minutes - Inpatient Certification Medical Necessity: Need Close Monitoring Due to Risk of Patient Decompensation, Need For Continuous Telemetry Monitoring, Risk of Complication if Not Cared For in Hospital
--- NOTE | 2018-12-12 17:11 | ADVANCED CARE ---
- Diagnosis (1) Acute hypercapnic respiratory failure Diagnosis Current: Yes (2) Metabolic encephalopathy Diagnosis Current: Yes Resuscitation Status: Do Not Resuscitate Discussion: Family is complying with his wishes at this time to be a DNR, but his did not seem to be too convinced, so we put him in the ICU for close monitoring. Discussed with his the increased likelihood of complications while on the ventilator due to his advanced COPD. Time Spent: 10
--- NOTE | 2018-12-12 19:39 | EKG REPORT ---
SEVERITY:- ABNORMAL ECG - SINUS RHYTHM NONSPECIFIC INTRAVENTRICULAR CONDUCTION DELAY : Confirmed by: Joey Wolfe MD 12-Dec-2018 19:38:47
[2018-12-12] MEDS: METHYLPREDNISOLONE INJ 40 MG/1 ML SDV IV SCH (21:32)
[2018-12-12] MEDS: HEPARIN SOD (PORCINE) 5,000 UNIT/ML 1 ML SYRINGE SUBCUT SCH (21:32)
[2018-12-13 04:25] LABS: HEMOGLOBIN 10.2 g/dL (13.5-17.0); MEAN CORPUSCULAR HEMOGLOBIN 27.2 pg (27.0-33.4); MEAN CORPUSCULAR HGB CONC 32.8 g/dL (32.0-36.0); MEAN CORPUSCULAR VOLUME 83 fl (80-97); PLATELET COUNT 229 10^3/uL (150-450); RED BLOOD COUNT 3.74 10^6/uL (4.35-5.55); RED CELL DISTRIBUTION WIDTH 15.3 % (11.5-14.0); WHITE BLOOD COUNT 9.3 10^3/uL (4.0-10.5)
[2018-12-13 04:44] LABS: BLOOD UREA NITROGEN 47 mg/dL (7-20); CALCIUM 9.2 mg/dL (8.4-10.2); GLUCOSE 131 mg/dL (75-110); POTASSIUM 5.2 mmol/L (3.6-5.0)
[2018-12-13 04:49] LABS: CARBON DIOXIDE 39 mmol/L (22-30); CHLORIDE 91 mmol/L (98-107); SODIUM 132.4 mmol/L (137-145)
[2018-12-13 04:57] LABS: ANION GAP 2 (5-19)
[2018-12-13] MEDS: METHYLPREDNISOLONE INJ 40 MG/1 ML SDV IV SCH ×3 (05:22→22:26)
[2018-12-13] MEDS: HEPARIN SOD (PORCINE) 5,000 UNIT/ML 1 ML SYRINGE SUBCUT SCH ×3 (05:22→22:26)
[2018-12-13 07:47] LABS: ARTERIAL BLOOD BASE EXCESS 10.6 mmol/L; ARTERIAL BLOOD H2CO3 4.13 mmol/L (1.05-1.35); ARTERIAL BLOOD O2 SATURATION 98.8 % (94-98); ARTERIAL BLOOD TOTAL CO2 48.3 mmol/L (23-27)
[2018-12-13 07:49] LABS: ARTERIAL BLOOD FIO2 6L
[2018-12-13 07:50] LABS: ARTERIAL BLOOD PCO2 137.3 mmHg (35-45); ARTERIAL BLOOD PH 7.12 (7.35-7.45)
--- NOTE | 2018-12-13 08:53 | PDOC PROGRESS REPORT ---
Subjective Progress Note for:: 12/13/18 Subjective:: 88 year old male with a history of oxygen dependent COPD who was not feeling well for the past couple of days. P.o. intake has been poor. He has had no changes in his medications. He does not take anything that would sedate him. He is been getting progressively more drowsy. Family was unable to get him to wake up this morning and so they had him brought to the hospital. He was found to have a PCO2 of 100 and a respiratory acidosis. He was apparently a little bit more awake when he came into the ER but is now completely obtunded. He was a DNR according to his , but she seems a little hesitant. We have put him on BiPAP in the ER and will be admitting him to the intensive care unit. 12/[id number]-old male with history of COPD on home oxygen admitted for being drowsy unable to wake him up brought to the hospital for further evaluation. In the emergency room PCO2 is 100 and respiratory acidosis. In the ER patient is completely obtunded. He is DNR according to his . He was placed on BiPAP. I saw him in intensive care today. Patient is on BiPAP awake, alert responding to his name and asking him how is he doing response is fine I requested him to wiggle his toes he able to follow the command. ABG done this morning on 50% oxygen pH is 7.12 PCO2 137 p.o. 10/15/2001 bicarb is 44 plan is to repeat the ABG. Presently on BiPAP with setting of 16/6 on 55% oxygen. X-ray shows clear With elevated BNP to give 1 dose of IV Lasix 40 mg. to repeat The chest x-ray today. Reason For Visit: ACUTE HYPERCAPNIC RESPIRATORY FAILURE,METABOLIC Physical Exam Vital Signs: Temp Pulse Resp BP Pulse Ox 97.2 F 99 23 H 136/68 H 98 12/13/18 08:00 12/13/18 08:00 12/13/18 08:05 12/13/18 08:00 12/13/18 08:05 Intake & Output 12/12/18 12/13/18 12/14/18 06:59 06:59 06:59 Intake Total 50 Output Total 410 45 Balance -360 -45 Weight 77.2 kg General appearance: PRESENT: no acute distress, well-developed, other - On BiPAP not in distress. Head exam: PRESENT: atraumatic Eye exam: PRESENT: PERRLA Mouth exam: PRESENT: moist, tongue midline Teeth exam: PRESENT: poor dentation Neck exam: ABSENT: carotid bruit, JVD, lymphadenopathy, thyromegaly Respiratory exam: PRESENT: crackles, decreased breath sounds Cardiovascular exam: PRESENT: RRR. ABSENT: diastolic murmur, rubs, systolic murmur Vascular exam: PRESENT: other - Peripheral pulses are poor. Lower extremities are slightly cool to touch. GI/Abdominal exam: PRESENT: normal bowel sounds, soft. ABSENT: distended, guarding, mass, organolmegaly, rebound, tenderness Extremities exam: PRESENT: full ROM. ABSENT: calf tenderness, clubbing, pedal edema Neurological exam: PRESENT: awake Psychiatric exam: PRESENT: appropriate affect, normal mood. ABSENT: homicidal ideation, suicidal ideation Results Laboratory Results: 12/13/18 04:05 12/13/18 04:05 12/12/18 12/12/18 12/12/18 15:11 15:11 15:11 WBC 16.3 H RBC 3.97 L Hgb 10.9 L Hct 33.2 L MCV 84 MCH 27.4 MCHC 32.7 RDW 15.4 H Plt Count 278 Seg Neutrophils % Not Reportable Lymphocytes % Not Reportable Monocytes % Not Reportable Eosinophils % Not Reportable Basophils % Not Reportable Absolute Neutrophils Not Reportable Absolute Lymphocytes Not Reportable Absolute Monocytes Not Reportable Absolute Eosinophils Not Reportable Absolute Basophils Not Reportable Carbonic Acid HCO3/H2CO3 Ratio ABG pH ABG pCO2 ABG pO2 ABG HCO3 ABG O2 Saturation ABG Base Excess FiO2 Sodium 131.0 L Potassium 4.4 Chloride 87 L Carbon Dioxide 38 H Anion Gap 6 BUN 43 H Creatinine 1.24 Est GFR ( Amer) > 60 Est GFR (Non-Af Amer) 55 L Glucose 168 H Lactic Acid 1.4 Calcium 9.5 Total Bilirubin 0.6 AST 26 ALT 15 L Alkaline Phosphatase 76 Total Protein 7.3 Albumin 3.5 Urine Color Urine Appearance Urine pH Ur Specific [place] Urine Protein Urine Glucose (UA) Urine Ketones Urine Blood Urine Nitrite Ur Leukocyte Esterase Urine WBC (Auto) Urine RBC (Auto) 12/12/18 12/12/18 12/13/18 15:33 16:27 04:05 WBC 9.3 RBC 3.74 L Hgb 10.2 L Hct 31.0 L MCV 83 MCH 27.2 MCHC 32.8 RDW 15.3 H Plt Count 229 Seg Neutrophils % Lymphocytes % Monocytes % Eosinophils % Basophils % Absolute Neutrophils Absolute Lymphocytes Absolute Monocytes Absolute Eosinophils Absolute Basophils Carbonic Acid 3.01 H HCO3/H2CO3 Ratio 12:1 ABG pH 7.20 L* ABG pCO2 99.9 H* ABG pO2 71.9 L ABG HCO3 37.7 H ABG O2 Saturation 89.3 L ABG Base Excess 6.2 FiO2 50% Sodium Potassium Chloride Carbon Dioxide Anion Gap BUN Creatinine Est GFR ( Amer) Est GFR (Non-Af Amer) Glucose Lactic Acid Calcium Total Bilirubin AST ALT Alkaline Phosphatase Total Protein Albumin Urine Color DARK YELLOW Urine Appearance CLOUDY Urine pH 5.0 Ur Specific [place] 1.017 Urine Protein 30 H Urine Glucose (UA) NEGATIVE Urine Ketones NEGATIVE Urine Blood SMALL H Urine Nitrite NEGATIVE Ur Leukocyte Esterase MODERATE H Urine WBC (Auto) 14 Urine RBC (Auto) 2 12/13/18 12/13/18 12/13/18 04:05 07:18 07:43 WBC RBC Hgb Hct MCV MCH MCHC RDW Plt Count Seg Neutrophils % Lymphocytes % Monocytes % Eosinophils % Basophils % Absolute Neutrophils Absolute Lymphocytes Absolute Monocytes Absolute Eosinophils Absolute Basophils Carbonic Acid Cancelled 4.13 H HCO3/H2CO3 Ratio Cancelled 10:1 ABG pH Cancelled 7.12 L* ABG pCO2 Cancelled 137.3 H* ABG pO2 Cancelled 202.0 H ABG HCO3 Cancelled 44.0 H ABG O2 Saturation Cancelled 98.8 H ABG Base Excess Cancelled 10.6 FiO2 Cancelled 6L Sodium 132.4 L Potassium 5.2 H Chloride 91 L Carbon Dioxide 39 H Anion Gap 2 L BUN 47 H Creatinine 1.09 Est GFR ( Amer) > 60 Est GFR (Non-Af Amer) > 60 Glucose 131 H Lactic Acid Calcium 9.2 Total Bilirubin AST ALT Alkaline Phosphatase Total Protein Albumin Urine Color Urine Appearance Urine pH Ur Specific [place] Urine Protein Urine Glucose (UA) Urine Ketones Urine Blood Urine Nitrite Ur Leukocyte Esterase Urine WBC (Auto) Urine RBC (Auto) 12/12/18 12/12/18 15:11 15:11 Creatine Kinase 28 L CK-MB (CK-2) 2.78 Troponin I 0.057 NT-Pro-B Natriuret Pep 3450 H Impressions: Chest X-Ray 12/12/18 15:04 IMPRESSION: Few Rohan lines at both bases, question mild interstitial edema. Assessment and Plan - Diagnosis (1) Acute hypercapnic respiratory failure Is this a current diagnosis for this admission?: Yes Plan: Is a DNR and at this time family is going with his wishes and trying to not intubate him. We currently have him on BiPAP, but it is noted that his mental status actually a little bit worse afterwards. We are admitting him to the ICU. We will empirically cover him with some steroids and antibiotics. 12/13/2018-patient is still on BiPAP, ABG done this morning on 50% oxygen pH is 7.12 PCO2 137/PO2 203 bicarb is 44. Patient is DNR/DNI. Chest x-ray done on admission shows edema with kerney lines. No evidence of pneumonia. Plan is to repeat the chest x-ray today and to give 1 dose of 40 mg of IV Lasix. To repeat the ABG now. Patient is also on IV Solu-Medrol and receiving levofloxacin IV. Plan is to continue the present management. (2) Metabolic encephalopathy Is this a current diagnosis for this admission?: Yes Plan: Due to his elevated PCO2. We have on BiPAP. If his mental status improves, will start him on some of his home medications. 12/13/2018-patient admitted with altered mental status/metabolic encephalopthy most likely secondary to COPD exacerbation with CO2 retention with PCO2 of 100 at the time of admission. Compared to the findings in the emergency room, patient mental status today is much improved. Plan is to continue the present management. (3) BRIGITTE (acute kidney injury) Is this a current diagnosis for this admission?: Yes Plan: 12/13/2018-patient's baseline creatinine is around 0.9, on admission it is 1.24 today it is 1.09. Acute kidney injury may be most likely secondary to prerenal causes improving. (4) Hyperkalemia Is this a current diagnosis for this admission?: Yes Plan: 12/13/2018-patient's potassium level today is 5.2 on admission it was 4.4. To give Kayexalate 30 g p.o. 1 dose today. Recheck potassium levels tomorrow. (5) Hyponatremia Is this a current diagnosis for this admission?: Yes Plan: 12/13/2018-patient's admission serum sodium is 131 and is improved to 132. Family gives a history of poor oral intake at home. Hyponatremia may be secondary to poor oral intake. Resolving. - Time Time Spent with patient: 25-34 minutes Medications reviewed and adjusted accordingly: Yes
[2018-12-13 08:58] LABS: ARTERIAL BLOOD BASE EXCESS 10.4 mmol/L; ARTERIAL BLOOD H2CO3 3.69 mmol/L (1.05-1.35); ARTERIAL BLOOD HCO3 43.2 mmol/L (20-24); ARTERIAL BLOOD O2 SATURATION 94.9 % (94-98); ARTERIAL BLOOD PO2 99.1 mmHg (80-100); ARTERIAL BLOOD TOTAL CO2 46.9 mmol/L (23-27)
[2018-12-13] MEDS ORDERED: FUROSEMIDE INJ/PF 40 MG/4 ML SDV IV ONE ×2 (09:00→11:30)
[2018-12-13 09:01] LABS: ARTERIAL BLOOD PCO2 122.5 mmHg (35-45); ARTERIAL BLOOD PH 7.17 (7.35-7.45)
[2018-12-13] MEDS ORDERED: LEVALBUTEROL HCL NEB 1.25 MG/3 ML AMPUL NEB PRN (09:02)
[2018-12-13] MEDS ORDERED: LEVOFLOXACIN 750 MG/D5W RTU 750 MG/150 ML RTUPB IV SCH (10:00)
--- NOTE | 2018-12-13 10:18 | RADIOLOGY REPORT (SQ) ---
EXAM DESCRIPTION: CHEST SINGLE VIEW COMPLETED DATE/TIME: 12/13/2018 10:00 am REASON FOR STUDY: shortness of breath COMPARISON: 12/12/2018 EXAM PARAMETERS: NUMBER OF VIEWS: One view. TECHNIQUE: Single frontal radiographic view of the chest acquired. RADIATION DOSE: NA LIMITATIONS: None. FINDINGS: LUNGS AND PLEURA: Patchy bilateral mixed interstitial and airspace disease in the lower l ungs. Mildly prominent interstitial markings in the lungs, may be on a chronic basis. Minimal blunt ing of the costophrenic angles may represent effusions. No pneumothorax. MEDIASTINUM AND HILAR STRUCTURES: No masses. Contour normal. HEART AND VASCULAR STRUCTURES: Stable appearance. BONES: No acute findings. HARDWARE: None in the chest. OTHER: No other significant finding. IMPRESSION: 1. Patchy bilateral mixed interstitial and airspace disease in the lower lungs. Very m inimal pleural effusions bilaterally. TECHNICAL DOCUMENTATION: JOB ID: [id number] [employer]- All Rights Reserved Reading location - IP/workstation name: [email or web address]
[2018-12-13 10:56] LABS: ARTERIAL BLOOD BASE EXCESS 9.3 mmol/L; ARTERIAL BLOOD FIO2 30%; ARTERIAL BLOOD H2CO3 2.44 mmol/L (1.05-1.35); ARTERIAL BLOOD HCO3 38.3 mmol/L (20-24); ARTERIAL BLOOD O2 SATURATION 87.3 % (94-98); ARTERIAL BLOOD PH 7.29 (7.35-7.45); ARTERIAL BLOOD PO2 60.9 mmHg (80-100); ARTERIAL BLOOD TOTAL CO2 40.8 mmol/L (23-27)
[2018-12-13] MEDS ORDERED: LORAZEPAM INJ 2 MG/1 ML VIAL ONE (13:41)
[2018-12-13 16:11] LABS: ARTERIAL BLOOD BASE EXCESS 9.5 mmol/L; ARTERIAL BLOOD H2CO3 1.88 mmol/L (1.05-1.35); ARTERIAL BLOOD O2 SATURATION 91.6 % (94-98); ARTERIAL BLOOD PCO2 62.3 mmHg (35-45); ARTERIAL BLOOD PH 7.39 (7.35-7.45); ARTERIAL BLOOD PO2 63.8 mmHg (80-100); ARTERIAL BLOOD TOTAL CO2 38.9 mmol/L (23-27)
[2018-12-13 16:12] LABS: ARTERIAL BLOOD FIO2 30%
[2018-12-13] MEDS ORDERED: METOPROLOL TARTRATE 50 MG TABLET PO SCH (19:00)
[2018-12-13] MEDS: LORAZEPAM INJ 2 MG/1 ML VIAL IV PRN (19:11)
[2018-12-13] MEDS: METOPROLOL TARTRATE PF/INJ 5 MG/5 ML SDV IV PRN (19:11)
[2018-12-13] MEDS ORDERED: LORAZEPAM INJ 2 MG/1 ML VIAL IV ONE (23:15)
[2018-12-14 04:28] LABS: HEMATOCRIT 30.4 % (37.9-51.0); HEMOGLOBIN 10.1 g/dL (13.5-17.0); MEAN CORPUSCULAR HGB CONC 33.1 g/dL (32.0-36.0); MEAN CORPUSCULAR VOLUME 82 fl (80-97); PLATELET COUNT 269 10^3/uL (150-450); RED BLOOD COUNT 3.73 10^6/uL (4.35-5.55); RED CELL DISTRIBUTION WIDTH 15.2 % (11.5-14.0); WHITE BLOOD COUNT 10.1 10^3/uL (4.0-10.5)
[2018-12-14 04:41] LABS: ALANINE AMINOTRANSFERASE 21 U/L (21-72); ALKALINE PHOSPHATASE 70 U/L (38-126); ANION GAP 6 (5-19); ASPARTATE AMINO TRANSFERASE 19 U/L (17-59); BILIRUBIN,TOTAL 0.5 mg/dL (0.2-1.3); BLOOD UREA NITROGEN 56 mg/dL (7-20); CALCIUM 9.7 mg/dL (8.4-10.2); CARBON DIOXIDE 37 mmol/L (22-30); CHLORIDE 92 mmol/L (98-107); GLUCOSE 107 mg/dL (75-110); POTASSIUM 4.8 mmol/L (3.6-5.0); SODIUM 135.3 mmol/L (137-145)
[2018-12-14 04:42] LABS: ARTERIAL BLOOD BASE EXCESS 9.5 mmol/L; ARTERIAL BLOOD H2CO3 2.34 mmol/L (1.05-1.35); ARTERIAL BLOOD HCO3 38.2 mmol/L (20-24); ARTERIAL BLOOD O2 SATURATION 86.1 % (94-98); ARTERIAL BLOOD PH 7.31 (7.35-7.45); ARTERIAL BLOOD TOTAL CO2 40.6 mmol/L (23-27)
[2018-12-14 04:42] LABS: BILIRUBIN,DIRECT 0.4 mg/dL (0.0-0.4); TOTAL PROTEIN 6.2 g/dL (6.3-8.2)
[2018-12-14 04:44] LABS: ABSOLUTE LYMPHOCYTES# (MANUAL) 0.4 10^3/uL (0.5-4.7); ABSOLUTE MONOCYTES # (MANUAL) 0.6 10^3/uL (0.1-1.4); ABSOLUTE NEUTROPHILS# (MANUAL) 9.1 10^3/uL (1.7-8.2); BAND NEUTROPHILS % (MANUAL) 2 % (3-5); BASOPHILS % (MANUAL) 0 % (0-2); EOSINOPHILS % (MANUAL) 0 % (0-6); HYPOCHROMASIA 1+; LYMPHOCYTES % (MANUAL) 4 % (13-45); MONOCYTES % (MANUAL) 6 % (3-13); PLATELET COMMENT ADEQUATE; POIKILOCYTOSIS 1+; SEGMENTED NEUTROPHILS % (MAN) 88 % (42-78); STOMATOCYTES 1+; TOTAL CELLS COUNTED 100
[2018-12-14 04:54] LABS: ARTERIAL BLOOD FIO2 35%; ARTERIAL BLOOD PCO2 77.9 mmHg (35-45)
[2018-12-14] MEDS: HEPARIN SOD (PORCINE) 5,000 UNIT/ML 1 ML SYRINGE SUBCUT SCH (05:07)
[2018-12-14] MEDS: METHYLPREDNISOLONE INJ 40 MG/1 ML SDV IV SCH (05:08)
[2018-12-14] MEDS: LORAZEPAM INJ 2 MG/1 ML VIAL IV PRN (05:16)
[2018-12-14] MEDS: METOPROLOL TARTRATE PF/INJ 5 MG/5 ML SDV IV PRN (05:52)
--- NOTE | 2018-12-14 06:36 | RADIOLOGY REPORT (SQ) ---
EXAM DESCRIPTION: XR CHEST 1 VIEW COMPLETED DATE/TME: 12/14/2018 06:00 CLINICAL HISTORY: 88 years, Male, chf COMPARISON: 12/13/2018 chest NUMBER OF VIEWS: 1 TECHNIQUE: Portable chest LIMITATIONS: None. FINDINGS: The heart size is normal. Osteopenia. Coarse interstitial changes bilaterally. No pneumothorax. IMPRESSION: Little interval change copyright 2010 [employer] All Rights Reserved
--- NOTE | 2018-12-14 08:58 | PDOC PROGRESS REPORT ---
Subjective Progress Note for:: 12/14/18 Subjective:: 88 year old male with a history of oxygen dependent COPD who was not feeling well for the past couple of days. P.o. intake has been poor. He has had no changes in his medications. He does not take anything that would sedate him. He is been getting progressively more drowsy. Family was unable to get him to wake up this morning and so they had him brought to the hospital. He was found to have a PCO2 of 100 and a respiratory acidosis. He was apparently a little bit more awake when he came into the ER but is now completely obtunded. He was a DNR according to his , but she seems a little hesitant. We have put him on BiPAP in the ER and will be admitting him to the intensive care unit. 12/[id number]-lhyr-old male with history of COPD on home oxygen admitted for being drowsy unable to wake him up brought to the hospital for further evaluation. In the emergency room PCO2 is 100 and respiratory acidosis. In the ER patient is completely obtunded. He is DNR according to his . He was placed on BiPAP. I saw him in intensive care today. Patient is on BiPAP awake, alert responding to his name and asking him how is he doing response is fine I requested him to wiggle his toes he able to follow the command. ABG done this morning on 50% oxygen pH is 7.12 PCO2 137 p.o. 10/15/2001 bicarb is 44 plan is to repeat the ABG. Presently on BiPAP with setting of 16/6 on 55% oxygen. X-ray shows clear With elevated BNP to give 1 dose of IV Lasix 40 mg. to repeat The chest x-ray today. 12/14/[id number]-aoin-old male with history of COPD admitted with altered mental status and obtunded in the ER. PCO2 at the time of admission is 100 yesterday he is on BiPAP repeat ABG shows PCO2 of 120-130. Consultation with Dr. Grove was requested and started in a.m. labs. PCO2 is improved yesterday. But this morning patient still on BiPAP not responding at all and bilateral air entry was very very minimal in the both lung [place]. He is struggling to breathe even on BiPAP. I spoke to patient's Collette Antoine and updated the patient's condition with her. Patient is DNR/DNI. Once the family is here in the ICU talk to them about possible comfort care measures. Reason For Visit: ACUTE HYPERCAPNIC RESPIRATORY FAILURE,METABOLIC Physical Exam Vital Signs: Temp Pulse Resp BP Pulse Ox 97.3 F 93 12 135/63 H 98 12/14/18 07:00 12/14/18 07:00 12/14/18 08:09 12/14/18 07:00 12/14/18 08:09 Intake & Output 12/13/18 12/14/18 12/15/18 06:59 06:59 06:59 Intake Total 50 1150 Output Total 410 790 Balance -360 360 Weight 77.2 kg 76.6 kg General appearance: PRESENT: other - Patient is in moderate to severe distress Head exam: PRESENT: atraumatic Eye exam: PRESENT: PERRLA Mouth exam: PRESENT: moist, tongue midline Teeth exam: PRESENT: poor dentation Neck exam: ABSENT: carotid bruit, JVD, lymphadenopathy, thyromegaly Respiratory exam: PRESENT: other - Bilateral entry was very much decreased. Patient on BiPAP. Even with BiPAP patient is tachypneic and struggling to breathe. Cardiovascular exam: PRESENT: tachycardia Neurological exam: PRESENT: other - Shunt is not responding to verbal commands. Results Laboratory Results: 12/14/18 04:07 12/14/18 04:07 12/13/18 12/13/18 12/13/18 08:35 10:45 15:45 WBC RBC Hgb Hct MCV MCH MCHC RDW Plt Count Seg Neutrophils % Lymphocytes % Monocytes % Eosinophils % Basophils % Absolute Neutrophils Absolute Lymphocytes Absolute Monocytes Absolute Eosinophils Absolute Basophils Carbonic Acid 3.69 H 2.44 H 1.88 H HCO3/H2CO3 Ratio 11:1 15:1 19:1 ABG pH 7.17 L* 7.29 L 7.39 ABG pCO2 122.5 H* 81.0 H* 62.3 H ABG pO2 99.1 60.9 L 63.8 L ABG HCO3 43.2 H 38.3 H 37.0 H ABG O2 Saturation 94.9 87.3 L 91.6 L ABG Base Excess 10.4 9.3 9.5 FiO2 55% 30% 30% Sodium Potassium Chloride Carbon Dioxide Anion Gap BUN Creatinine Est GFR ( Amer) Est GFR (Non-Af Amer) Glucose Calcium Magnesium Total Bilirubin AST ALT Alkaline Phosphatase Total Protein Albumin 12/14/18 12/14/18 12/14/18 04:07 04:07 04:36 WBC 10.1 RBC 3.73 L Hgb 10.1 L Hct 30.4 L MCV 82 MCH 27.0 MCHC 33.1 RDW 15.2 H Plt Count 269 Seg Neutrophils % Not Reportable Lymphocytes % Not Reportable Monocytes % Not Reportable Eosinophils % Not Reportable Basophils % Not Reportable Absolute Neutrophils Not Reportable Absolute Lymphocytes Not Reportable Absolute Monocytes Not Reportable Absolute Eosinophils Not Reportable Absolute Basophils Not Reportable Carbonic Acid 2.34 H HCO3/H2CO3 Ratio 16:1 ABG pH 7.31 L ABG pCO2 77.9 H* ABG pO2 58.0 L ABG HCO3 38.2 H ABG O2 Saturation 86.1 L ABG Base Excess 9.5 FiO2 35% Sodium 135.3 L Potassium 4.8 Chloride 92 L Carbon Dioxide 37 H Anion Gap 6 BUN 56 H Creatinine 1.18 Est GFR ( Amer) > 60 Est GFR (Non-Af Amer) 58 L Glucose 107 Calcium 9.7 Magnesium 2.0 Total Bilirubin 0.5 AST 19 ALT 21 Alkaline Phosphatase 70 Total Protein 6.2 L Albumin 3.0 L 12/12/18 16:27 Thompson Catheter Urine Culture - Final Pseudomonas Aeruginosa 12/12/18 12/12/18 15:11 15:11 Creatine Kinase 28 L CK-MB (CK-2) 2.78 Troponin I 0.057 NT-Pro-B Natriuret Pep 3450 H Impressions: Chest X-Ray 12/14/18 06:00 IMPRESSION: Little interval change copyright 2011 [employer]- All Rights Reserved Assessment and Plan - Diagnosis (1) Acute hypercapnic respiratory failure Is this a current diagnosis for this admission?: Yes Plan: Is a DNR and at this time family is going with his wishes and trying to not intubate him. We currently have him on BiPAP, but it is noted that his mental status actually a little bit worse afterwards. We are admitting him to the ICU. We will empirically cover him with some steroids and antibiotics. 12/13/2018-patient is still on BiPAP, ABG done this morning on 50% oxygen pH is 7.12 PCO2 137/PO2 203 bicarb is 44. Patient is DNR/DNI. Chest x-ray done on admission shows edema with kerney lines. No evidence of pneumonia. Plan is to repeat the chest x-ray today and to give 1 dose of 40 mg of IV Lasix. To repeat the ABG now. Patient is also on IV Solu-Medrol and receiving levofloxacin IV. Plan is to continue the present management. 12/14/2018-patient is struggling to breathe on BiPAP. BG and 35% oxygen this morning pH is 7.31, PCO2 78, PaO2 58 oxygen saturation is 86%. Chest x-ray shows no change compared to yesterday. Patient is on IV levofloxacin and IV Solu-Medrol. Plan is to continue the present management overall prognosis is poor. Give 1 more dose of IV Lasix today. Because the plan of care with the patient's and gave the update. (2) Metabolic encephalopathy Is this a current diagnosis for this admission?: Yes Plan: Due to his elevated PCO2. We have on BiPAP. If his mental status improves, will start him on some of his home medications. 12/13/2018-patient admitted with altered mental status/metabolic encephalopthy most likely secondary to COPD exacerbation with CO2 retention with PCO2 of 100 at the time of admission. Compared to the findings in the emergency room, pat ient mental status today is much improved. Plan is to continue the present management. 12/14/2018-patient is admitted with altered mental status/metabolic and coagulopathy most likely secondary to COPD exacerbation and hypercapnia. PCO2 this morning in the ABG 78. pt is on AWAPS plan is to continue the present management. (3) BRIGITTE (acute kidney injury) Is this a current diagnosis for this admission?: Yes Plan: 12/13/2018-patient's baseline creatinine is around 0.9, on admission it is 1.24 today it is 1.09. Acute kidney injury may be most likely secondary to prerenal causes improving. 12/14/2018-patient's creatinine today is 1.18 was sent from 1.09 from yesterday. Patient able unable to take anything by mouth. AK I most likely secondary to poor oral intake. (4) Hyperkalemia Is this a current diagnosis for this admission?: Yes Plan: 12/13/2018-patient's potassium level today is 5.2 on admission it was 4.4. To give Kayexalate 30 g p.o. 1 dose today. Recheck potassium levels tomorrow. 12/14/2018-serum sodium level is 4.8 today hyperkalemia is resolved. (5) Hyponatremia Is this a current diagnosis for this admission?: Yes Plan: 12/13/2018-patient's admission serum sodium is 131 and is improved to 132. Family gives a history of poor oral intake at home. Hyponatremia may be secondary to poor oral intake. Resolving. 12/14/2018-patient's serum sodium is 135 hyponatremia is resolved. (7) Do not resuscitate Is this a current diagnosis for this admission?: Yes Plan: Patient's CODE STATUS is DNR/DNI. Positive family is here I am going to talk to them about comfort care measures. - Time Time Spent with patient: 25-34 minutes Medications reviewed and adjusted accordingly: Yes Anticipated discharge: SNF
[2018-12-14] MEDS ORDERED: FUROSEMIDE INJ/PF 40 MG/4 ML SDV IV ONE (09:15)
[2018-12-14] MEDS ORDERED: MORPHINE SULFATE 10 MG/ML INJ IV PRN (10:16)
[2018-12-14 10:43] VITALS: BP 118/54
--- NOTE | 2018-12-14 10:43 | Progress Note ---
Provider Note Provider Note: asked my Dr Coughlin to write for 2nd physician comfort measure orders went and spoke with family- they are in agreement with comfort measures at this time- patient is already DNR and failing Bipap from what i am told. seems to be in acute respiratory failure with hypercapnia and hypoxia likely 2/[address] Coughlin spoke with family and has been managing patient in the ICU without any improvement- at this time family would like to have patient as comfort measures.
[2018-12-15] MEDS: LORAZEPAM INJ 2 MG/1 ML VIAL IV PRN ×2 (02:08→11:41)
--- NOTE | 2018-12-15 21:58 | Death Summary ---
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 He exhibited encephalopathy from the hypercapnia. His PCO2 was 100 on admission and despite BiPAP therapy it increased to 120. With his lack of response to treatment Dr. Oquendo discussed advance care planning with the patient's . He was made comfort measures only and was transferred from the ICU to the fourth floor. The nursing staff called to inform me that the patient at 4:50 PM. certificate was completed. Family had already left the bedside.
== END 2018-12-15 16:50 | DRG 189 ==
LOC: ER 15:01 → EH 17:07 → ICU 17:57 → 4N 12-14 21:36
PROVIDERS: ADMIT Family Medicine; ATTEND Family Medicine
PROC: 5A09457 Assistance with Respiratory Ventilation, 24-96 Consecutive Hours, Continuous Positive Airway Pressure (ICD-10-PCS; principal; 2018-12-12)
DX: J96.02 Acute respiratory failure with hypercapnia (principal); G93.41 Metabolic encephalopathy; J44.1 Chronic obstructive pulmonary disease with (acute) exacerbation; N17.9 Acute kidney failure, unspecified; E87.1 Hypo-osmolality and hyponatremia; Z51.5 Encounter for palliative care; Z66 Do not resuscitate; I48.91 Unspecified atrial fibrillation; E87.5 Hyperkalemia; I11.0 Hypertensive heart disease with heart failure; I50.9 Heart failure, unspecified; I25.10 Atherosclerotic heart disease of native coronary artery without angina pectoris; I25.2 Old myocardial infarction; E78.5 Hyperlipidemia, unspecified; E11.9 Type 2 diabetes mellitus without complications; Z82.49 Family history of ischemic heart disease and other diseases of the circulatory system; Z83.438 Family history of other disorder of lipoprotein metabolism and other lipidemia; Z88.0 Allergy status to penicillin; Z78.1 Physical restraint status
CPT/HCPCS: 36415; 71045; 80048; 80053; 81001; 82550; 82553; 82803; 82962; 83605; 83735; 83880; 84484; 85025; 85027; 85610; 87040; 87086; 87088; 87186; 93005; 93010; 94640; 94660; 96361; 96374; 96375; 99291; J0692; J1644; J1940; J1956; J2060; J2920; J2930; J3370; J3490; J7030; J7120; J7620